=== PATIENT | male | born 1975 | race Caucasian/White ===

== ENCOUNTER 2016-10-09 | Inpatient (IN) | END 2017-10-08 23:59 | disposition other institution (70) | DRG 133 | DX: J96.11 Chronic respiratory failure with hypoxia (principal); G93.1 Anoxic brain damage, not elsewhere classified; R40.3 Persistent vegetative state; Z93.0 Tracheostomy status; R13.10 Dysphagia, unspecified; Z86.73 Personal history of transient ischemic attack (TIA), and cerebral infarction without residual deficits; Z93.1 Gastrostomy status; E11.22 Type 2 diabetes mellitus with diabetic chronic kidney disease; I12.9 Hypertensive chronic kidney disease with stage 1 through stage 4 chronic kidney disease, or unspecified chronic kidney disease; N18.9 Chronic kidney disease, unspecified; E03.9 Hypothyroidism, unspecified; N40.0 Benign prostatic hyperplasia without lower urinary tract symptoms; G40.909 Epilepsy, unspecified, not intractable, without status epilepticus; G47.00 Insomnia, unspecified ==

== ENCOUNTER 2016-12-09 07:11 | Day surgery (SDC) | payer MEDICARE, MEDICAID ==
[~2016-12-09 07:11] MED LIST: ACET-2154 GT; ALBU2.5V38 NEB; ASCO500C16 GT; BACL20TA GT; CHOL4PAC5 GT; HYDR5TAB2 GT; IPRATROPIUM NEB; LACT1CAP61 GT; LEVE1000 GT; LEVO75TA7 GT; MENT71OI TP; MERO1VIA IV; METR500T GT; MULT9LIQ6 GT; NAPH1POW3 GT; OMEP20TA20 GT; ONDA4SOL2 GT; PROSTAT GT; RXVAN XX; TERA1CAP4 GT; VANC250C4 GT; Vancomycin Hcl PO
[2016-12-09] MEDS ORDERED: IV NORMAL SALINE 1000 ML BAG IV ONE (07:53)
[2016-12-09] MEDS ORDERED: PROPOFOL 200 MG/20 ML BOTTLE IV ONE (07:53)
== END 2016-12-09 09:10 | disposition still patient (30) ==
LOC: DS 07:11
PROVIDERS: ATTEND Internal Medicine Gastroenterology
DX: R19.5 Other fecal abnormalities (principal); D64.9 Anemia, unspecified; K63.89 Other specified diseases of intestine; K22.70 Barrett's esophagus without dysplasia; K44.9 Diaphragmatic hernia without obstruction or gangrene; Z93.1 Gastrostomy status; E46 Unspecified protein-calorie malnutrition; E03.9 Hypothyroidism, unspecified; G40.909 Epilepsy, unspecified, not intractable, without status epilepticus
CPT/HCPCS: 43239; 45378; A4217; J3490; J7030

== ENCOUNTER 2017-03-01 09:43 | Day surgery (SDC) | payer MEDICARE, MEDICAID ==
[~2017-03-01 09:43] MED LIST changes: +IV NORMAL SALINE 1000 ML BAG IV ONE; +LIDOCAINE HCL 1% 20 ML VIAL MC ONE; +PROPOFOL 200 MG/20 ML BOTTLE IV ONE
== END 2017-03-01 11:00 | disposition still patient (30) ==
LOC: DS 09:43
PROVIDERS: ATTEND Internal Medicine Gastroenterology
DX: K94.23 Gastrostomy malfunction (principal); Q85.00 Neurofibromatosis, unspecified; G40.909 Epilepsy, unspecified, not intractable, without status epilepticus; N18.9 Chronic kidney disease, unspecified; D64.9 Anemia, unspecified; E11.9 Type 2 diabetes mellitus without complications; J96.10 Chronic respiratory failure, unspecified whether with hypoxia or hypercapnia; J18.9 Pneumonia, unspecified organism
CPT/HCPCS: 43235; A4217; J3490; J7030

== ENCOUNTER 2017-05-24 09:31 | Day surgery (SDC) | payer MEDICARE, MEDICAID ==
[~2017-05-24 09:31] MED LIST changes: -IV NORMAL SALINE 1000 ML BAG IV ONE; -LIDOCAINE HCL 1% 20 ML VIAL MC ONE; -PROPOFOL 200 MG/20 ML BOTTLE IV ONE
[2017-05-24] MEDS ORDERED: PROPOFOL 200 MG/20 ML BOTTLE IV ONE (11:08)
[2017-05-24] MEDS ORDERED: IV NORMAL SALINE 1000 ML BAG IV ONE (11:08)
[2017-05-24] MEDS ORDERED: LIDOCAINE HCL 1% 20 ML VIAL MC ONE (11:08)
[2017-05-24] MEDS ORDERED: IV NORMAL SALINE 1000 ML BAG ONE (11:10)
[2017-05-24] MEDS ORDERED: LIDOCAINE HCL 1% 20 ML VIAL ONE (11:10)
[2017-05-24] MEDS ORDERED: PROPOFOL 200 MG/20 ML BOTTLE ONE (11:10)
== END 2017-05-24 12:05 | disposition still patient (30) ==
LOC: DS 09:31
PROVIDERS: ATTEND Internal Medicine Gastroenterology
DX: K22.10 Ulcer of esophagus without bleeding (principal); K44.9 Diaphragmatic hernia without obstruction or gangrene; Z79.899 Other long term (current) drug therapy; G40.909 Epilepsy, unspecified, not intractable, without status epilepticus; D64.9 Anemia, unspecified; E11.22 Type 2 diabetes mellitus with diabetic chronic kidney disease; N18.9 Chronic kidney disease, unspecified; E03.9 Hypothyroidism, unspecified; G45.9 Transient cerebral ischemic attack, unspecified
CPT/HCPCS: 43239; A4217; J3490 ×2; J7030

== ENCOUNTER 2017-10-09 | Inpatient (IN) | END 2018-10-08 23:59 | disposition still patient (30) | DRG 189 | DX: J96.11 Chronic respiratory failure with hypoxia (principal); E43 Unspecified severe protein-calorie malnutrition; J69.0 Pneumonitis due to inhalation of food and vomit; G93.1 Anoxic brain damage, not elsewhere classified; R40.3 Persistent vegetative state; D62 Acute posthemorrhagic anemia; D68.59 Other primary thrombophilia; J81.1 Chronic pulmonary edema; R64 Cachexia; Z93.0 Tracheostomy status; R13.10 Dysphagia, unspecified; Z86.73 Personal history of transient ischemic attack (TIA), and cerebral infarction without residual deficits; Z93.1 Gastrostomy status; E11.22 Type 2 diabetes mellitus with diabetic chronic kidney disease; I12.9 Hypertensive chronic kidney disease with stage 1 through stage 4 chronic kidney disease, or unspecified chronic kidney disease; N18.9 Chronic kidney disease, unspecified; E03.9 Hypothyroidism, unspecified; G40.909 Epilepsy, unspecified, not intractable, without status epilepticus; G47.00 Insomnia, unspecified; D36.15 Benign neoplasm of peripheral nerves and autonomic nervous system of abdomen; F09 Unspecified mental disorder due to known physiological condition; F41.9 Anxiety disorder, unspecified; F79 Unspecified intellectual disabilities; I70.0 Atherosclerosis of aorta; K40.20 Bilateral inguinal hernia, without obstruction or gangrene, not specified as recurrent; K80.20 Calculus of gallbladder without cholecystitis without obstruction; Q85.01 Neurofibromatosis, type 1; N40.0 Benign prostatic hyperplasia without lower urinary tract symptoms; R62.7 Adult failure to thrive; Z68.23 Body mass index [BMI] 23.0-23.9, adult; Z86.14 Personal history of Methicillin resistant Staphylococcus aureus infection; Z87.820 Personal history of traumatic brain injury ==

== ENCOUNTER 2018-06-01 11:38 | Inpatient (IN) | payer MEDICARE, MEDICAID ==
[~2018-06-01] VITALS: Ht 167.6 cm; Wt 63.5 kg
[2018-06-01] MEDS ORDERED: SUCR1TAB31 GT (12:08)
[2018-06-01] MEDS ORDERED: LOPE2CAP GT (12:08)
[2018-06-01] MEDS ORDERED: POTA10TA15 GT (12:08)
[2018-06-01] MEDS ORDERED: HYDR1SOL (12:08)
[2018-06-01] MEDS ORDERED: IV NORMAL SALINE 250 ML IV ONE (12:26)
[2018-06-01] MEDS ORDERED: IOHEXOL 350 100 ML INFUS..BTL ONE (12:26)
[2018-06-01] MEDS ORDERED: SWABABLE VALVE TRANSFER SET EA MC ONE (12:26)
--- NOTE | 2018-06-01 12:36 | NUR ---
PT IS IN ROOM #1A. DR ANDERSON EVALUATED THE PT.
[2018-06-01] MEDS ORDERED: IV NORMAL SALINE 1000 ML BAG IV ONE (12:45)
[2018-06-01 14:29] LABS: *BILIRUBIN,URIN NEGATIVE (NEGATIVE); *BLOOD, URINE NEGATIVE (NEGATIVE); *CLARITY,URINE CLEAR (CLEAR); *COLOR,URINE YELLOW (YELLOW); *KETONES,URINE NEGATIVE (NEGATIVE); *PROTEIN,URINE NEGATIVE (NEGATIVE); *UROBILINOGEN,URINE 0.2 E.U./dl (NORMAL); LEUKOCYTE ESTERASE ,URINE NEGATIVE (NEGATIVE); NITRITE, URINE NEGATIVE (NEGATIVE); UGLUCOSE NEGATIVE (NEGATIVE)
[2018-06-01] MEDS ORDERED: LEVOFLOXACIN 750MG/D5W 150 ML IV ONE ×2 (14:30→14:40)
[2018-06-01] MEDS ORDERED: PIPERACILLIN SODIUM/TAZOBACTAM 3.375 G in IV DEXTROSE 5% 50 ML IV ONE (14:30)
[2018-06-01 14:35] LABS: RBC,URINE 0-3 /HPF (0-3); WBC,URINE 0-3 /HPF (0-3)
[2018-06-01 14:36] LABS: BACTERIA,URINE NONE SEEN /HPF (NONE SEEN); SQUAMOUS EPITHELIAL CELL,UR FEW /HPF (NONE SEEN)
[2018-06-01 14:37] LABS: MUCUS,URINE FEW /LPF (0-FEW)
[2018-06-01] MEDS ORDERED: PIPERACILLIN/TAZOBACTAM/D5W 50 ML IV ONE (14:39)
[2018-06-01] MEDS ORDERED: IPRATROPIUM BROMIDE 0.5 MG/2.5 ML NEBU NEB PRN (15:30)
[2018-06-01] MEDS ORDERED: ACETAMINOPHEN 325 MG TABLET GT PRN (15:30)
[2018-06-01] MEDS ORDERED: ALBUTEROL SULFATE 2.5 MG/3 ML NEBU NEB PRN (15:30)
[2018-06-01] MEDS ORDERED: Z GUARD REMEDY PASTE 57 GM TUBE TOP PRN ×2 (15:30→20:00)
[2018-06-01] MEDS ORDERED: ONDANSETRON 4 MG/2 ML VIAL IV PRN (15:30)
--- NOTE | 2018-06-01 15:55 | NUR ---
REPORT WAS GIVEN TO RN LASHON. PT WAS TRANSFERED TO ROOM #217.
--- NOTE | 2018-06-01 15:58 | NUR ---
SBAR report received from Dara JEAN BAPTISTE, 43 yr old male who was brought down from subacute [facility] facility for elevated wbc and abd bruising. with the following medical history: tracheostomy, PEG, previous Stroke, resp failure, muscle wasting, atrophy non verbal, mentally disabled. 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 right arm ok. opens eyes but not to commands. lactic acid 3.2. was given 2 l NS iv. IV site to right forearm #20. Addendum: 06/01/18 at 1558 by ZEINA GOMEZ RN Amended: Links added.
[2018-06-01 16:30] VITALS: BP 112/71
[2018-06-01] MEDS: IV NS 1000 ML 1,000 ML IV PRN (16:34)
--- NOTE | 2018-06-01 16:38 | NUR ---
Clinical pharmacy note-Vancomycin dosing per pharmacy Subjective: To start vancomycin dosing on this quadriplegic patient for pneumonia(from 4th) Objective: BUN 31 Scr 0.6 WBC 17 temp 97.8 Ht 167.64cm Wt 63.5kg Assessment /Plan: Previously he was on Vancomycin 1gram iv every 12hrs and it yielded trough around 14.8(scr 0.6). Will start Vancomycin as 1 gram IV every 11hrs for expected trough around 16.9 and order trough by 4th dose(not ordered yet ) for pneumonia. Will monitor daily.
[2018-06-01] MEDS ORDERED: Medication Not On Formulary EA (Lactobacillus Acidophilus (Acidophilus) 1 EACH) GT SCH (17:00)
[2018-06-01] MEDS ORDERED: HYDROGEN PEROXIDE 3% 118 ML BOTTLE TP PRN (17:00)
[2018-06-01] MEDS: BACLOFEN 20 MG TABLET GT SCH ×2 (18:35→20:08)
[2018-06-01] MEDS: VITAL AF 1.2 1,000 ML LIQUID GT PRN (18:36)
[2018-06-01] MEDS: VANCOMYCIN IV 1 G in PREMIXED 0 EACH IV SCH (18:36)
[2018-06-01] MEDS: PIPERACILLIN/TAZOBACTAM/D5W 50 ML IV SCH (19:14)
--- NOTE | 2018-06-01 19:30 | NUR ---
Report received; patient awake, no appropriate verbal responses to questions. Grunting and mildly restless. Moving/waving R arm, attempts to hit RN. Advised and reoriented PRN. On contact isolation for HX: ESBL bronchial washings (Oct 31, 2017). Trache Shiley #[address]; O2 2 L by trache collar. Assessment completed; see flow sheet for details. Addendum: 06/02/18 at 333 by LIZZETH ZEPEDA RN Amended: Links added. Addendum: 06/02/18 at 033 by LIZZETH ZEPEDA RN Amended: Links added.
--- NOTE | 2018-06-01 19:32 | NUR ---
REPORT GIVEN TO Buffy RN Addendum: 06/01/18 at 1933 by ZEINA GOMEZ RN Amended: Links added.
[2018-06-01 19:35] VITALS: BP 125/69
--- NOTE | 2018-06-01 19:40 | NUR ---
Report received; patient awake, no appropriate verbal responses to questions. Grunting and mildly restless. Moving/waving R arm, attempts to hit RN. Advised and reoriented PRN. On contact isolation for HX: ESBL bronchial washings (Oct 31, 2017). Trache shiley #[address]; O2 2 L by trache collar. Assessment completed; see flow sheet for details. Addendum: 06/02/18 at 0345 by LIZZETH ZEPEDA RN Amended: Links added.
[2018-06-01] MEDS: LEVETIRACETAM 500 MG/5 ML LIQUID UDC GT SCH (20:08)
[2018-06-01] MEDS: LACTOBACILLUS RHAMNOSUS GG 1 EACH CAPSULE PEG SCH (20:08)
[2018-06-01] MEDS: HYDROCORTISONE 10 MG TABLET GT SCH (20:08)
[2018-06-01] MEDS: MULTIVIT, IRON, MIN NO. 8, FA TABLET GT SCH (20:08)
[2018-06-01] MEDS: Z GUARD REMEDY PASTE 57 GM TUBE TOP SCH (20:09)
--- NOTE | 2018-06-01 20:10 | NUR ---
GT feedings held. Residuals above 100ml. Medications given. HOB elevated above 30 degrees at all times.
[2018-06-01] MEDS: HYDROGEN PEROXIDE 3% 118 ML BOTTLE TP SCH (20:21)
[2018-06-01] MEDS: IPRATROPIUM BROMIDE 0.5 MG/2.5 ML NEBU NEB SCH ×2 (20:30→23:25)
[2018-06-01] MEDS: ALBUTEROL SULFATE 2.5 MG/3 ML NEBU NEB SCH ×3 (20:30→23:25)
[2018-06-01] MEDS ORDERED: Medication Not On Formulary EA (Multivit &Minerals/Ferrous Fum (Multivitamin Liquid) 5 M GT SCH (21:00)
[2018-06-01] MEDS ORDERED: HYDROCORTISONE 25 MG GT SCH (21:00)
[2018-06-01] MEDS ORDERED: ACIDOPHILUS/BULGARICUS CHEW TAB GT SCH (21:00)
[2018-06-01] MEDS ORDERED: Medication Not On Formulary EA (Levetiracetam (Keppra) 1,000 MG) GT SCH (21:00)
[2018-06-01] MEDS: SUCRALFATE 1 G TABLET GT SCH (21:29)
[2018-06-01] MEDS: PANTOPRAZOLE ORAL SUSPENSION 40 MG SUSPDR.PKT GT SCH (21:29)
--- NOTE | 2018-06-01 22:00 | NUR ---
Skin care provided. Patient with increasing restlessness during care. GT feedings restarted at 30 ml/H.
[2018-06-01 23:21] VITALS: BP 116/74
[2018-06-02] VITALS (13 sets, daily range): BP systolic 104–137; BP diastolic 54–74
[2018-06-02] MEDS: PIPERACILLIN/TAZOBACTAM/D5W 50 ML IV SCH ×4 (00:23→17:27)
--- NOTE | 2018-06-02 00:30 | NUR ---
During rounds found that patient had pulled out trache. RICHARD noted. RT called. Berna applied to R arm for safety. L arm and both legs contracted. Addendum: 06/02/18 at 0406 by LIZZETH ZEPEDA RN Amended: Links added.
--- NOTE | 2018-06-02 00:40 | NUR ---
Called to room by RN KHUSHBOO. Pt had pulled trach tube out. New Rah 4 DCFS inserted and is in place patent and secure. No resp. distress noted. RN AnishaT notified. B/U Rah Yu and BVM are both at bedside.
--- NOTE | 2018-06-02 01:00 | NUR ---
Am care done. Condom catheter applied; attached to drainage bag. Skin care provided.
[2018-06-02] MEDS: ALBUTEROL SULFATE 2.5 MG/3 ML NEBU NEB SCH ×6 (02:50→22:41)
[2018-06-02] MEDS: IPRATROPIUM BROMIDE 0.5 MG/2.5 ML NEBU NEB SCH ×6 (02:50→22:41)
[2018-06-02] MEDS: VANCOMYCIN IV 1 G in PREMIXED 0 EACH IV SCH ×2 (04:31→16:27)
[2018-06-02] MEDS: LEVOTHYROXINE SODIUM 75 MCG TABLET GT SCH (05:52)
[2018-06-02] MEDS: PANTOPRAZOLE ORAL SUSPENSION 40 MG SUSPDR.PKT GT SCH ×2 (05:52→21:41)
[2018-06-02] MEDS: SUCRALFATE 1 G TABLET GT SCH ×3 (05:52→21:41)
--- NOTE | 2018-06-02 06:00 | NUR ---
Remains agitated and attempts to hit RN during care. VS stable. Soft wrist restraint applied to mitten for safety.
[2018-06-02 06:22] LABS: BILIRUBIN,TOTAL 0.7 mg/dL (0.2-1.0); CREATININE 0.7 mg/dL (0.6-1.3); MAGNESIUM 1.8 mg/dL (1.8-2.4); PHOSPHOROUS 2.5 mg/dL (2.5-4.9); POTASSIUM 3.8 mmol/L (3.5-5.1); TOTAL PROTEIN, SERUM 5.7 g/dL (6.4-8.2)
[2018-06-02] MEDS: IV NS 1000 ML 1,000 ML IV PRN (06:24)
[2018-06-02 06:26] LABS: THYROID STIMULATING HORMONE 0.672 mIU/mL (0.358-3.740)
[2018-06-02 06:27] LABS: BASOPHILS % (AUTO) 0.5 % (0.0-2.0); EOSINOPHILS # (AUTO) 0.1 K/uL (0.0-0.7); EOSINOPHILS % (AUTO) 1.3 % (0.0-7.0); LYMPHOCYTES # (AUTO) 0.2 K/uL (20.0-40.0); LYMPHOCYTES % (AUTO) 2.5 % (20.5-51.5); MEAN CORPUSCULAR HEMOGLOBIN 29.5 uug (23.8-33.4); MEAN CORPUSCULAR HGB CONC 34 g/dL (32.5-36.3); MEAN CORPUSCULAR VOLUME 85.7 fL (73.0-96.2); MONOCYTES # (AUTO) 0.9 K/uL (2.0-10.0); MONOCYTES % (AUTO) 9.3 % (0.0-11.0); NEUTROPHILS # (AUTO) 8.2 K/uL (1.8-8.9); NEUTROPHILS % (AUTO) 86.4 % (38.5-71.5); PLATELET COUNT (AUTO) 179 K/uL (152-348); RED BLOOD CELL COUNT(AUTO) 2.78 MIL/uL (4.06-5.63)
[2018-06-02 06:30] LABS: HEMATOCRIT 24.1 % (36.7-47.1); HEMOGLOBIN 8.2 g/dL (12.5-16.3); WHITE BLOOD COUNT (AUTO) 9.5 K/uL (3.6-10.2)
[2018-06-02] MEDS ORDERED: PANTOPRAZOLE ORAL SUSPENSION 40 MG SUSPDR.PKT GT SCH ×2 (06:30)
--- NOTE | 2018-06-02 06:30 | NUR ---
GT feedings restarted at 0600; rate= 30 ml/H. (Feedings order: 30 ml/H increased Q6H as tolerated goal 70 ml/H x 18H)
[2018-06-02] MEDS: VITAL AF 1.2 1,000 ML LIQUID GT PRN (06:41)
[2018-06-02 07:30] LABS: ABG BASE EXCESS -1.1 mmol/L; ABG HCO3 21.9 mmol/L; ABG PCO2 29.4 mmHg (35.0-45.0); ABG PH 7.489 (7.350-7.450); ABG PO2 74.9 mmHg (75.0-100.0); ABG SITE RIGHT BRACHIAL; COHb 2.2 % (0.5-1.5); MetHb 0.4 % (0.0-1.5); O2Hb 93.1 % (94.0-97.0); VENT MODE Trach Collar 30%
[2018-06-02 07:52] LABS: BAND % (MANUAL) 5 % (0-10); BASOPHILS % (MANUAL) 1 % (0-2); EOSINOPHILS % (MANUAL) 1 % (0-8); LYMPHOCYTES % (MANUAL) 3 % (20-40); METAMYELOCYTES % 1 % (0-1); MONOCYTES % (MANUAL) 8 % (2-10); MYELOCYTES % 2 % (0-0); NEUTROPHILS % (MANUAL) 79 % (42-75)
--- NOTE | 2018-06-02 08:00 | NUR ---
AWAKE ALERT AND CONFUSED X3, MITTENS MAINTAINED RIGHT ARM FOR PULLING OUT TUBE/TRACHEOSTOMY
[2018-06-02] MEDS: LEVETIRACETAM 500 MG/5 ML LIQUID UDC GT SCH ×2 (08:16→20:14)
[2018-06-02] MEDS: HYDROCORTISONE 10 MG TABLET GT SCH ×2 (08:16→20:14)
[2018-06-02] MEDS: POTASSIUM CHLORIDE 20 MEQ POWDER PACKET GT SCH (08:17)
[2018-06-02] MEDS: BACLOFEN 20 MG TABLET GT SCH ×4 (08:17→20:14)
[2018-06-02] MEDS: TERAZOSIN 1 MG CAPSULE GT SCH (08:17)
[2018-06-02] MEDS: LACTOBACILLUS RHAMNOSUS GG 1 EACH CAPSULE PEG SCH ×2 (08:17→20:15)
[2018-06-02] MEDS: Z GUARD REMEDY PASTE 57 GM TUBE TOP SCH ×2 (08:18→20:16)
[2018-06-02] MEDS: HYDROGEN PEROXIDE 3% 118 ML BOTTLE TP SCH ×2 (08:19→20:17)
--- NOTE | 2018-06-02 09:06 | NUR ---
Clinical pharmacy note-Vancomycin dosing per pharmacy Subjective: To continue vancomycin dosing on this quadriplegic patient for pneumonia (from subacute) Objective: BUN 20 Scr 0.7 WBC 9.5 temp 98.5 Ht 167.64cm Wt 63.5kg Assessment /Plan: Will continue same dose of Vancomycin 1 gram IV every 11hrs for now. 3rd dose is due today at 1530. Plan to draw vanco trough by 4th dose(ordered for 06/03 at 0200- RN has been informed to hold 0230 dose if vanco trough level is above 20 mcg/ml ). Pharmach shall review the level in am & adjust the dose if needed. Will monitor daily.
[2018-06-02] MEDS ORDERED: IV NORMAL SALINE 500 ML IV ONE (10:30)
[2018-06-02 11:09] LABS: HEMATOCRIT 21.6 % (36.7-47.1)
[2018-06-02 11:14] LABS: HEMOGLOBIN 7.2 g/dL (12.5-16.3)
--- NOTE | 2018-06-02 14:11 | NUR ---
BLOOD TRANSFUSION STARTED CLOSELY MONITORED
--- NOTE | 2018-06-02 14:26 | NUR ---
TRIED TO REACH BROTHER FOR BLOOD TRANSFUSION CONSENT BUT TO NO AVAIL. HOSPITALIST Rachel ZAMORA NOTIFIED
--- NOTE | 2018-06-02 15:17 | NUR ---
NO REACTION FROM BLOOD TRANSFUSION NOTED
--- NOTE | 2018-06-02 16:44 | NUR ---
BLOOD TRANSFUSION COMPLETED WITH NO REACTION
[2018-06-02 18:15] LABS: HEMATOCRIT 23.5 % (36.7-47.1); HEMOGLOBIN 7.8 g/dL (12.5-16.3)
--- NOTE | 2018-06-02 19:15 | NUR ---
ROUNDS MADE PATIENT IN BED AWAKE .NON VERBAL ONLY MOANS AND GROANS . UNABLE TO FOLLOW COMMANDS . TOLERATING COOL AEROSOL MASK WITH FIO2 OF 30%. HOB UP . NO RESPIRATORY DISTRESS NOTED . BREATHING EVEN AND UNLABORED. NO S/S/ OF PAIN . TF IN PROGRESS VIA THE PEG VITAL FEEDING AT 30 ML/HOUR ASPIRATION PRECAUTION OBSERVED. CONDOM CATHETER IN PLACED WITH YELLOWISH URINE CONTINUE TO MONITOR I AND OS .FOR PATENT SAFETY WRIST RESTRAINTS IN PLACE PATENT KEEP REMOVING TRACH . CONTINUE TO MONITOR VITALS AND LEVELS OF COMFORT.
[2018-06-02] MEDS: MULTIVIT, IRON, MIN NO. 8, FA TABLET GT SCH (20:15)
--- NOTE | 2018-06-02 20:36 | NUR ---
ZULLY CONTRERAS SIGNED 2ND PHYSICIAN FOR BLOOD TRANSFUSION CONSENT . PER DOCTOR BEN HE NEEDS ANOTHER 1 UNIT FOR HGB 7.8 HCT 23.5, WILL ORDER 1 UNIT OF BLOOD .
--- NOTE | 2018-06-02 23:00 | NUR ---
PM CARE DONE . INCONTINENT OF URIEN CHANGE SOLED LINENS AND GOWN SKIN CARE DONE , TURNED AND REPOSITION PATIENT . HOB UP AND ELEVATED UPPER AND LOWER EXTREMITIES WITH PILLOW .
[2018-06-03] VITALS (7 sets, daily range): BP systolic 107–141; BP diastolic 65–80
--- NOTE | 2018-06-03 00:01 | NUR ---
PRBC IN PROGRESS NO BLOOD TRANSFUSION RXN NOTED CONTINUE TO MONITOR FOR V/S .
[2018-06-03] MEDS: PIPERACILLIN/TAZOBACTAM/D5W 50 ML IV SCH ×5 (00:09→23:37)
[2018-06-03] MEDS: IV NS 1000 ML 1,000 ML IV PRN ×2 (00:10→17:30)
--- NOTE | 2018-06-03 01:35 | NUR ---
TOLERATED BLOOD TRANSFUSION NO RXN NOTED .
[2018-06-03] MEDS: ALBUTEROL SULFATE 2.5 MG/3 ML NEBU NEB SCH ×6 (03:50→22:35)
[2018-06-03] MEDS: IPRATROPIUM BROMIDE 0.5 MG/2.5 ML NEBU NEB SCH ×6 (03:50→22:34)
[2018-06-03] MEDS: VANCOMYCIN IV 1 G in PREMIXED 0 EACH IV SCH ×2 (04:13→13:36)
[2018-06-03] MEDS: PANTOPRAZOLE ORAL SUSPENSION 40 MG SUSPDR.PKT GT SCH ×2 (05:08→21:46)
[2018-06-03] MEDS: SUCRALFATE 1 G TABLET GT SCH ×3 (05:08→21:45)
[2018-06-03 05:54] LABS: BASOPHILS % (AUTO) 0.5 % (0.0-2.0); EOSINOPHILS # (AUTO) 0.1 K/uL (0.0-0.7); EOSINOPHILS % (AUTO) 1.1 % (0.0-7.0); HEMATOCRIT 26.4 % (36.7-47.1); HEMOGLOBIN 9.1 g/dL (12.5-16.3); LYMPHOCYTES # (AUTO) 0.3 K/uL (20.0-40.0); LYMPHOCYTES % (AUTO) 4.1 % (20.5-51.5); MEAN CORPUSCULAR HEMOGLOBIN 29.6 uug (23.8-33.4); MEAN CORPUSCULAR HGB CONC 35 g/dL (32.5-36.3); MEAN CORPUSCULAR VOLUME 85.9 fL (73.0-96.2); MONOCYTES # (AUTO) 0.8 K/uL (2.0-10.0); MONOCYTES % (AUTO) 10.2 % (0.0-11.0); NEUTROPHILS # (AUTO) 6.3 K/uL (1.8-8.9); NEUTROPHILS % (AUTO) 84.1 % (38.5-71.5); PLATELET COUNT (AUTO) 160 K/uL (152-348); RED BLOOD CELL COUNT(AUTO) 3.07 MIL/uL (4.06-5.63); WHITE BLOOD COUNT (AUTO) 7.5 K/uL (3.6-10.2)
[2018-06-03 06:06] LABS: ALANINE AMINOTRANSFERASE 21 U/L (16-63); ALKALINE PHOSPHATASE 55 U/L (50-136); ASPARTATE AMINOTRANSFERASE 14 U/L (15-37); BILIRUBIN,TOTAL 1.3 mg/dL (0.2-1.0); CARBON DIOXIDE 24 mmol/L (21-32); CHLORIDE 108 mmol/L (98-107); CREATININE 0.6 mg/dL (0.6-1.3); GLUCOSE 88 mg/dL (74-106); MAGNESIUM 1.9 mg/dL (1.8-2.4); PHOSPHOROUS 2.8 mg/dL (2.5-4.9); POTASSIUM 3.3 mmol/L (3.5-5.1); TOTAL PROTEIN, SERUM 5.5 g/dL (6.4-8.2); UREA NITROGEN, BLOOD 13 mg/dL (7-18)
[2018-06-03] MEDS: LEVOTHYROXINE SODIUM 75 MCG TABLET GT SCH (06:17)
--- NOTE | 2018-06-03 08:00 | NUR ---
AWAKE ALERT BUT REMAINS CONFUSED X3 NO SS OF PAIN OR DISTRESS WITH 30% O2 VIA TRACH SATURATING 100%. SEEN BY DR DIEHL WITH ORDER.
[2018-06-03] MEDS: HYDROGEN PEROXIDE 3% 118 ML BOTTLE TP SCH ×2 (08:28→20:52)
[2018-06-03] MEDS: LEVETIRACETAM 500 MG/5 ML LIQUID UDC GT SCH ×2 (08:28→20:13)
[2018-06-03] MEDS: LACTOBACILLUS RHAMNOSUS GG 1 EACH CAPSULE PEG SCH ×2 (08:28→20:15)
[2018-06-03] MEDS: BACLOFEN 20 MG TABLET GT SCH ×4 (08:28→20:13)
[2018-06-03] MEDS: POTASSIUM CHLORIDE 20 MEQ POWDER PACKET GT SCH (08:28)
[2018-06-03] MEDS: Z GUARD REMEDY PASTE 57 GM TUBE TOP SCH ×2 (08:29→20:15)
[2018-06-03] MEDS: HYDROCORTISONE 10 MG TABLET GT SCH ×2 (08:30→20:12)
[2018-06-03] MEDS: TERAZOSIN 1 MG CAPSULE GT SCH (08:30)
--- NOTE | 2018-06-03 08:49 | NUR ---
Clinical pharmacy note-Vancomycin dosing per pharmacy Subjective: To continue vancomycin dosing on this quadriplegic patient for pneumonia (from subacute) Objective: BUN 13 Scr 0.6 WBC 7.5 temp 97.5 Ht 167.64cm Wt 63.5kg Trough: 16.6 today at 0200 Assessment /Plan: As trough within range, will continue same dose of Vancomycin 1 gram IV every 11hrs for now. If patient stays on prolonged course or condition changes, may recheck level or change regimen. Will follow
[2018-06-03] MEDS: VITAL AF 1.2 1,000 ML LIQUID GT PRN (08:55)
--- NOTE | 2018-06-03 10:30 | NUR ---
NOTED WITH LARGE SOFT BOWEL MOVEMENT SPECIMEN SENT FOR STOOL OB AND C-DIFF. TOLERATING FEEDING NO RESIDUAL NOTED. NO REACTION FROM IV ANTIBIOTIC
[2018-06-03] MEDS: POTASSIUM CHLORIDE 50 ML IV SCH ×2 (10:32→11:57)
[2018-06-03 11:04] LABS: IRON, SERUM 46 ug/dL (50-175)
[2018-06-03 11:48] LABS: HEMATOCRIT 26.5 % (36.7-47.1); HEMOGLOBIN 9.1 g/dL (12.5-16.3)
[2018-06-03 11:51] LABS: *OCCULT BLOOD STOOL POSITIVE (NEGATIVE)
--- NOTE | 2018-06-03 13:07 | NUR ---
SEEN BY HOSPITALIST Rachel ZAMORA CONTINUE CURRENT TX PLAN,
--- NOTE | 2018-06-03 13:27 | NUR ---
SEEN BY INSTRUCTIONAL SERVICES SPECIALIST FOR DR MOREL SEE NOTES
--- NOTE | 2018-06-03 17:43 | NUR ---
CONTINUE WITH LASHON OBSERVATION, IVF AND IV ANTIBIOTICS. AFEBRILE
--- NOTE | 2018-06-03 20:00 | NUR ---
Pt awake, restless and continues to attempt to DC med equipments. Soft wrist restraints bilateral and mitten right hand maintained, circ checks adequate. Maintained on contact isolation. Resp easy and regular. Trach midline, intact with cool mist O2 in use. Tube feedings well tolerated. Aspiration precautions observed. IVF infusing well. Turned/positioned q 2hr and PRN. Nursing comfort measures observed at all times.
[2018-06-03] MEDS: MULTIVIT, IRON, MIN NO. 8, FA TABLET GT SCH (20:13)
--- NOTE | 2018-06-03 21:40 | NUR ---
Seen and evaluated by Tyrone Gutierrez from ID, no new orders.
[2018-06-04] VITALS: BP 128/71
[2018-06-04] MEDS: VANCOMYCIN IV 1 G in PREMIXED 0 EACH IV SCH (00:24)
[2018-06-04] MEDS: ALBUTEROL SULFATE 2.5 MG/3 ML NEBU NEB SCH ×4 (02:30→14:50)
[2018-06-04] MEDS: IPRATROPIUM BROMIDE 0.5 MG/2.5 ML NEBU NEB SCH ×4 (02:30→14:50)
[2018-06-04 04:00] VITALS: BP 126/71
[2018-06-04] MEDS: PIPERACILLIN/TAZOBACTAM/D5W 50 ML IV SCH ×2 (05:32→11:52)
--- NOTE | 2018-06-04 06:00 | NUR ---
Required frequent suctioning to copious thick secretions, at times frothy. Inner cannula Shiley #4 changed twice with site cleansed q 2hr with trach dressing change. HOB up elevated at all times. Tube feeding at 40 ml/hr most of the night and residuals small; thus rate increased to 50 ml/hr at 0400 but turned off at 0600. Gen. condition unchanged.
[2018-06-04] MEDS: PANTOPRAZOLE ORAL SUSPENSION 40 MG SUSPDR.PKT GT SCH (06:08)
[2018-06-04] MEDS: SUCRALFATE 1 G TABLET GT SCH ×2 (06:08→12:50)
[2018-06-04] MEDS: LEVOTHYROXINE SODIUM 75 MCG TABLET GT SCH (06:08)
[2018-06-04 06:37] LABS: BASOPHILS % (AUTO) 0.6 % (0.0-2.0); EOSINOPHILS # (AUTO) 0.1 K/uL (0.0-0.7); EOSINOPHILS % (AUTO) 1.8 % (0.0-7.0); HEMATOCRIT 26.4 % (36.7-47.1); HEMOGLOBIN 9.2 g/dL (12.5-16.3); LYMPHOCYTES # (AUTO) 0.7 K/uL (20.0-40.0); LYMPHOCYTES % (AUTO) 9.2 % (20.5-51.5); MEAN CORPUSCULAR HEMOGLOBIN 29.9 uug (23.8-33.4); MEAN CORPUSCULAR HGB CONC 35 g/dL (32.5-36.3); MEAN CORPUSCULAR VOLUME 86.3 fL (73.0-96.2); MONOCYTES % (AUTO) 13.8 % (0.0-11.0); NEUTROPHILS # (AUTO) 5.4 K/uL (1.8-8.9); NEUTROPHILS % (AUTO) 74.6 % (38.5-71.5); PLATELET COUNT (AUTO) 176 K/uL (152-348); RED BLOOD CELL COUNT(AUTO) 3.07 MIL/uL (4.06-5.63); WHITE BLOOD COUNT (AUTO) 7.2 K/uL (3.6-10.2)
[2018-06-04 06:43] LABS: CARBON DIOXIDE 25 mmol/L (21-32); CHLORIDE 109 mmol/L (98-107); CREATININE 0.6 mg/dL (0.6-1.3); GLUCOSE 104 mg/dL (74-106); MAGNESIUM 1.9 mg/dL (1.8-2.4); POTASSIUM 3.3 mmol/L (3.5-5.1); UREA NITROGEN, BLOOD 9 mg/dL (7-18)
--- NOTE | 2018-06-04 07:25 | NUR ---
report received from Ronit. 43 yr old male was admitted on 06/01/18 for SEPSIS, PNA. patient nonverbal, left arm conractured with a splint. lower extremeties flaccid. is receiving IV fluid NS at 75ml/hr. ekg sinus rhythm. dvt pumps and on first step select air mattress. trach Shiley #4 intact. had copious trach secretions last night. Addendum: 06/04/18 at 1051 by ZEINA GOMEZ RN Amended: Links added.
[2018-06-04 07:28] VITALS: BP 114/81
[2018-06-04] MEDS: HYDROCORTISONE 10 MG TABLET GT SCH (08:58)
[2018-06-04] MEDS: LACTOBACILLUS RHAMNOSUS GG 1 EACH CAPSULE PEG SCH (08:58)
[2018-06-04] MEDS: LEVETIRACETAM 500 MG/5 ML LIQUID UDC GT SCH (08:58)
[2018-06-04] MEDS: POTASSIUM CHLORIDE 20 MEQ POWDER PACKET GT SCH (08:58)
[2018-06-04] MEDS: BACLOFEN 20 MG TABLET GT SCH ×3 (08:58→16:52)
[2018-06-04] MEDS: TERAZOSIN 1 MG CAPSULE GT SCH (08:59)
[2018-06-04] MEDS: Z GUARD REMEDY PASTE 57 GM TUBE TOP SCH (09:01)
[2018-06-04] MEDS: HYDROGEN PEROXIDE 3% 118 ML BOTTLE TP SCH (09:02)
[2018-06-04] MEDS: IV NS 1000 ML 1,000 ML IV PRN (10:41)
[2018-06-04] MEDS ORDERED: POTASSIUM CHLORIDE 20 MEQ POWDER PACKET GT ONE (10:45)
--- NOTE | 2018-06-04 11:20 | NUR ---
kcl 40meq replaced for k 3.3 Addendum: 06/04/18 at 1120 by ZEINA GOMEZ RN Amended: Links added.
[2018-06-04 11:23] VITALS: BP 121/67
[2018-06-04 11:42] LABS: HEMATOCRIT 28.2 % (36.7-47.1); HEMOGLOBIN 9.6 g/dL (12.5-16.3)
[2018-06-04] MEDS ORDERED: PIPE3.379 IV (12:42)
[2018-06-04] MEDS: VITAL AF 1.2 1,000 ML LIQUID GT PRN (12:51)
--- NOTE | 2018-06-04 15:00 | NUR ---
patient ready to move back to but Travel [facility] here Dr Mendez wanted to see patient first. Addendum: 06/04/18 at 1701 by ZEINA GOMEZ RN Amended: Links added. Addendum: 06/04/18 at 1703 by ZEINA GOMEZ RN Amended: Links added. Addendum: 06/04/18 at 1705 by ZEINA GOMEZ RN Amended: Links added.
--- NOTE | 2018-06-04 15:06 | NUR ---
report given to Hyacinth Agosto SA. Addendum: 06/04/18 at 1506 by ZEINA GOMEZ RN Amended: Links added.
[2018-06-04 15:14] VITALS: BP 149/71
--- NOTE | 2018-06-04 16:00 | NUR ---
seen by dr hunter. preferred patient not to be discharged today pending lab tests. call to dr Painter. case picker and Bay Nurse Director for aware. dr painter okayed discharge to . fide GURROLA NP came to see patient. Addendum: 06/04/18 at 1703 by ZEINA GOMEZ RN Amended: Links added. Addendum: 06/04/18 at 1705 by ZEINA GOMEZ RN Amended: Links added.
--- NOTE | 2018-06-04 17:00 | NUR ---
Pt was seen by DR Hunter and being picked up by sub acute staff. Notified HARNESS BRUSHER jamila re: reporting result of labs fibrinogen to DR hunter
--- NOTE | 2018-06-04 17:15 | NUR ---
PT TRANSPORTED BACK TO 410 WITHOUT INCIDENT NOTED. BACK ON COOL AEROSOL AT 30% .
[2018-06-04 20:56] LABS: FERRITIN 47 ng/mL (26-388)
[2018-06-05 07:05] LABS: *IMMUNOGLOBULIN G, SERUM 629 mg/dL (700-1600); IMMUNOGLOBULIN A, SERUM 159 mg/dL (90-386); IMMUNOGLOBULIN M, SERUM 46 mg/dL (20-172)
[2018-06-05 12:08] LABS: A/G RATIO 1.1 (0.7-1.7); ALBUMIN 2.8 g/dL (2.9-4.4); ALPHA-1-GLOBULIN 0.4 g/dL (0.0-0.4); ALPHA-2-GLOBULIN 0.7 g/dL (0.4-1.0); BETA GLOBULIN 0.9 g/dL (0.7-1.3); GAMMA GLOBULIN 0.7 g/dL (0.4-1.8); GLOBULIN, TOTAL 2.6 g/dL (2.2-3.9); M-SPIKE Not Observed g/dL (Not Observed)
== END 2018-06-04 16:54 | DRG 871 ==
LOC: ER 11:41 → TELE-TD 15:32
PROVIDERS: ADMIT Internal Medicine; ATTEND Internal Medicine
PROC: 30233N1 Transfusion of Nonautologous Red Blood Cells into Peripheral Vein, Percutaneous Approach (ICD-10-PCS; principal; 2018-06-02)
DX: A41.9 Sepsis, unspecified organism (principal); J69.0 Pneumonitis due to inhalation of food and vomit; I50.31 Acute diastolic (congestive) heart failure; J96.11 Chronic respiratory failure with hypoxia; G93.1 Anoxic brain damage, not elsewhere classified; E44.0 Moderate protein-calorie malnutrition; K92.1 Melena; J98.11 Atelectasis; D68.59 Other primary thrombophilia; E87.2 Acidosis; I31.3 Pericardial effusion (noninflammatory); R65.20 Severe sepsis without septic shock; Z93.0 Tracheostomy status; Z93.1 Gastrostomy status; G40.909 Epilepsy, unspecified, not intractable, without status epilepticus; Q85.00 Neurofibromatosis, unspecified; Z68.22 Body mass index [BMI] 22.0-22.9, adult; E03.9 Hypothyroidism, unspecified; Z86.14 Personal history of Methicillin resistant Staphylococcus aureus infection; K21.9 Gastro-esophageal reflux disease without esophagitis; N40.0 Benign prostatic hyperplasia without lower urinary tract symptoms; K44.9 Diaphragmatic hernia without obstruction or gangrene; K40.20 Bilateral inguinal hernia, without obstruction or gangrene, not specified as recurrent; D53.9 Nutritional anemia, unspecified; E11.65 Type 2 diabetes mellitus with hyperglycemia; E87.6 Hypokalemia; Z79.899 Other long term (current) drug therapy; R13.10 Dysphagia, unspecified; F79 Unspecified intellectual disabilities; F41.9 Anxiety disorder, unspecified; S30.1XXA Contusion of abdominal wall, initial encounter; X58.XXXA Exposure to other specified factors, initial encounter; Y92.239 Unspecified place in hospital as the place of occurrence of the external cause; Z87.01 Personal history of pneumonia (recurrent); Z86.73 Personal history of transient ischemic attack (TIA), and cerebral infarction without residual deficits; R62.7 Adult failure to thrive; Z87.820 Personal history of traumatic brain injury; E83.51 Hypocalcemia; M62.59 Muscle wasting and atrophy, not elsewhere classified, multiple sites
CPT/HCPCS: 36415; 36600; 71045; 71275; 82784; 83550; 83605; 83735; 84100; 84155; 84165; 84443; 85018; 85025; 85730; 86334; 86850; 86900; 86901; 86920; 87040; 87070; 87086; 93005; 93307; 94640; 94664; A4217; A4663; C1758; J1956; J2543; J3370; J3480; J3590; J7030; J7040; J7050; P9016-BL; P9021; Q9967

== ENCOUNTER 2018-07-03 08:06 | Outpatient (CLI) | payer MEDICARE, MEDICAID ==
[~2018-07-03 08:06] MED LIST changes: -ASCO500C16 GT; -CHOL4PAC5 GT; +HYDR1SOL; +IOHEXOL 300MG/ML 100 ML INFUS..BTL ONE; +IV NORMAL SALINE 250 ML IV ONE; +LOPE2CAP GT; -MERO1VIA IV; -METR500T GT; -NAPH1POW3 GT; -ONDA4SOL2 GT; +PIPE3.379 IV; +POTA10TA15 GT; -PROSTAT GT; -RXVAN XX; +SUCR1TAB31 GT; +SWABABLE VALVE TRANSFER SET EA MC ONE; -VANC250C4 GT; -Vancomycin Hcl PO
== END 2018-07-03 23:59 | disposition home or self-care (01) ==
LOC: CT 08:06
PROVIDERS: ATTEND Internal Medicine Pulmonary Disease
DX: N50.1 Vascular disorders of male genital organs (principal); K80.20 Calculus of gallbladder without cholecystitis without obstruction; K86.89 Other specified diseases of pancreas; K76.0 Fatty (change of) liver, not elsewhere classified; J98.11 Atelectasis; K42.9 Umbilical hernia without obstruction or gangrene; K44.9 Diaphragmatic hernia without obstruction or gangrene; K40.20 Bilateral inguinal hernia, without obstruction or gangrene, not specified as recurrent; Z93.1 Gastrostomy status
CPT/HCPCS: 74177; J7050; Q9967

== ENCOUNTER 2018-10-09 | Inpatient (IN) | payer MEDICARE, MEDICAID ==
[~2018-10-09] VITALS: Ht 167.6 cm; Wt 68.5 kg
[~2018-10-09] MED LIST changes: -HYDR5TAB2 GT; +HYDR5TAB7 GT; -IOHEXOL 300MG/ML 100 ML INFUS..BTL ONE; -IV NORMAL SALINE 250 ML IV ONE; -SWABABLE VALVE TRANSFER SET EA MC ONE
[2018-10-10 08:05] VITALS: BP 158/78
[2018-10-10] MEDS ORDERED: LOPERAMIDE HCL 1 MG/5 ML UDC GT PRN (09:30)
[2018-10-10] MEDS ORDERED: Z GUARD REMEDY PASTE 57 GM TUBE TOP PRN (09:30)
[2018-10-10] MEDS ORDERED: ALBUTEROL SULFATE 2.5 MG/3 ML NEBU NEB PRN (09:30)
[2018-10-10] MEDS ORDERED: HYDROGEN PEROXIDE 3% 118 ML BOTTLE TP PRN (09:30)
[2018-10-10] MEDS ORDERED: IPRATROPIUM BROMIDE 0.5 MG/2.5 ML NEBU NEB PRN (09:30)
[2018-10-10] MEDS: POTASSIUM CHLORIDE 40 MEQ/30 ML LIQUID UDC GT SCH (09:35)
[2018-10-10] MEDS: HYDROCORTISONE 20MG TABLET GT SCH ×2 (09:35→20:58)
[2018-10-10] MEDS: TERAZOSIN 1 MG CAPSULE GT SCH (09:35)
[2018-10-10] MEDS: HYDROCORTISONE 10 MG GT SCH ×2 (09:35→20:58)
[2018-10-10] MEDS: ACIDOPHILUS/BULGARICUS CHEW TAB GT SCH ×2 (09:35→20:58)
[2018-10-10] MEDS: LEVETIRACETAM 500 MG/5 ML LIQUID UDC GT SCH ×2 (09:36→20:58)
[2018-10-10] MEDS: HYDROGEN PEROXIDE 3% 118 ML BOTTLE TP SCH ×2 (09:36→20:59)
[2018-10-10] MEDS: Z GUARD REMEDY PASTE 57 GM TUBE TOP SCH ×2 (09:36→20:59)
[2018-10-10] MEDS: BACLOFEN 20 MG TABLET GT SCH ×4 (09:36→20:58)
[2018-10-10] MEDS ORDERED: ACETAMINOPHEN 650 MG/20 ML UDC- SA PATIENTS-FEVER ONLY GT PRN (09:45)
[2018-10-10] MEDS: ALBUTEROL SULFATE 2.5 MG/3 ML NEBU NEB SCH ×2 (13:09→19:40)
[2018-10-10] MEDS: IPRATROPIUM BROMIDE 0.5 MG/2.5 ML NEBU NEB SCH ×2 (13:10→19:40)
[2018-10-10] MEDS: SUCRALFATE 1 G/10 ML LIQUID UDC GT SCH ×2 (14:57→22:49)
[2018-10-10 19:21] VITALS: BP 110/66
[2018-10-10] MEDS: MULTIVIT, IRON, MIN NO. 8, FA TABLET GT SCH (20:58)
[2018-10-10] MEDS: OMEPRAZOLE 20 MG CAPSULE.DR PO SCH (22:49)
--- NOTE | 2018-10-10 23:30 | NUR ---
Seen with new orders from Dr. Duncan Bell ( Coronary Care Unit Nurse) s/p ingrown removal , with new treatment with Triple antibiotic ointment and cover with band aid daily X 7 days.
[2018-10-11] MEDS: ALBUTEROL SULFATE 2.5 MG/3 ML NEBU NEB SCH ×4 (01:11→18:54)
[2018-10-11] MEDS: IPRATROPIUM BROMIDE 0.5 MG/2.5 ML NEBU NEB SCH ×4 (01:11→18:54)
[2018-10-11] MEDS: OMEPRAZOLE 20 MG CAPSULE.DR PO SCH ×2 (06:09→22:39)
[2018-10-11] MEDS: SUCRALFATE 1 G/10 ML LIQUID UDC GT SCH ×3 (06:09→22:39)
[2018-10-11] MEDS: LEVOTHYROXINE SODIUM 75 MCG TABLET GT SCH (06:09)
[2018-10-11] MEDS: ACIDOPHILUS/BULGARICUS CHEW TAB GT SCH ×2 (08:39→20:43)
[2018-10-11] MEDS: TERAZOSIN 1 MG CAPSULE GT SCH (08:39)
[2018-10-11] MEDS: LEVETIRACETAM 500 MG/5 ML LIQUID UDC GT SCH ×2 (08:40→20:44)
[2018-10-11] MEDS: BACLOFEN 20 MG TABLET GT SCH ×4 (08:40→20:44)
[2018-10-11] MEDS: Z GUARD REMEDY PASTE 57 GM TUBE TOP SCH ×2 (08:41→20:44)
[2018-10-11] MEDS: HYDROCORTISONE 20MG TABLET GT SCH ×2 (08:41→20:44)
[2018-10-11] MEDS: HYDROCORTISONE 10 MG GT SCH ×2 (08:41→20:44)
[2018-10-11] MEDS: POTASSIUM CHLORIDE 40 MEQ/30 ML LIQUID UDC GT SCH (08:42)
[2018-10-11] MEDS: NEOMY/BACITRAC/POLYMI OINT 28.35 GM TUBE TOP SCH (08:43)
[2018-10-11] MEDS: HYDROGEN PEROXIDE 3% 118 ML BOTTLE TP SCH ×2 (08:43→20:44)
[2018-10-11 11:44] VITALS: BP 120/73
[2018-10-11 20:41] VITALS: BP 128/80
[2018-10-11] MEDS: MULTIVIT, IRON, MIN NO. 8, FA TABLET GT SCH (20:44)
[2018-10-12] MEDS: ALBUTEROL SULFATE 2.5 MG/3 ML NEBU NEB SCH ×4 (01:32→19:16)
[2018-10-12] MEDS: IPRATROPIUM BROMIDE 0.5 MG/2.5 ML NEBU NEB SCH ×4 (01:32→19:16)
[2018-10-12] MEDS: VITAL AF 1.2 1,000 ML LIQUID GT PRN ×2 (01:50→22:24)
[2018-10-12] MEDS: OMEPRAZOLE 20 MG CAPSULE.DR PO SCH ×2 (06:00→22:24)
[2018-10-12] MEDS: LEVOTHYROXINE SODIUM 75 MCG TABLET GT SCH (06:00)
[2018-10-12] MEDS: SUCRALFATE 1 G/10 ML LIQUID UDC GT SCH ×3 (06:00→22:24)
[2018-10-12 07:50] VITALS: BP 141/80
[2018-10-12] MEDS: ACIDOPHILUS/BULGARICUS CHEW TAB GT SCH ×2 (08:19→20:31)
[2018-10-12] MEDS: TERAZOSIN 1 MG CAPSULE GT SCH (08:20)
[2018-10-12] MEDS: HYDROCORTISONE 10 MG GT SCH ×2 (08:20→20:31)
[2018-10-12] MEDS: Z GUARD REMEDY PASTE 57 GM TUBE TOP SCH ×2 (08:20→20:31)
[2018-10-12] MEDS: BACLOFEN 20 MG TABLET GT SCH ×4 (08:20→20:31)
[2018-10-12] MEDS: LEVETIRACETAM 500 MG/5 ML LIQUID UDC GT SCH ×2 (08:20→20:31)
[2018-10-12] MEDS: POTASSIUM CHLORIDE 40 MEQ/30 ML LIQUID UDC GT SCH (08:20)
[2018-10-12] MEDS: HYDROCORTISONE 20MG TABLET GT SCH ×2 (08:20→20:31)
[2018-10-12] MEDS: NEOMY/BACITRAC/POLYMI OINT 28.35 GM TUBE TOP SCH (08:21)
[2018-10-12] MEDS: HYDROGEN PEROXIDE 3% 118 ML BOTTLE TP SCH ×2 (08:21→20:31)
--- NOTE | 2018-10-12 16:16 | NUR ---
BRIAN mailed the annual admission paperwork for patient's new chart to patient's brother Jose. The paperwork included: Condition of Admission, Patient Rights Acknowledgement, An Important Message from Medicare about your Rights, Documentation of Preferred Intensity of Care, Voluntary Prior Express Consent Form, and the [facility] Agreement. SW also included instructions on how to review/complete and sign the papers, and enclosed an envelope for Jose to return the paperwork back to this SW. BRIAN mailed the paperwork to: Jose Talia Aquino [address] [place] [address]
[2018-10-12 20:13] VITALS: BP 122/71
[2018-10-12] MEDS: MULTIVIT, IRON, MIN NO. 8, FA TABLET GT SCH (20:31)
[2018-10-13] MEDS: ALBUTEROL SULFATE 2.5 MG/3 ML NEBU NEB SCH ×4 (01:27→19:11)
[2018-10-13] MEDS: IPRATROPIUM BROMIDE 0.5 MG/2.5 ML NEBU NEB SCH ×4 (01:27→19:11)
[2018-10-13] MEDS: LEVOTHYROXINE SODIUM 75 MCG TABLET GT SCH (05:55)
[2018-10-13] MEDS: OMEPRAZOLE 20 MG CAPSULE.DR PO SCH ×2 (05:55→22:06)
[2018-10-13] MEDS: SUCRALFATE 1 G/10 ML LIQUID UDC GT SCH ×3 (05:55→22:06)
[2018-10-13] MEDS: ACIDOPHILUS/BULGARICUS CHEW TAB GT SCH ×2 (08:40→21:00)
[2018-10-13] MEDS: HYDROCORTISONE 20MG TABLET GT SCH ×2 (08:41→21:00)
[2018-10-13] MEDS: TERAZOSIN 1 MG CAPSULE GT SCH (08:41)
[2018-10-13] MEDS: BACLOFEN 20 MG TABLET GT SCH ×4 (08:41→21:00)
[2018-10-13] MEDS: Z GUARD REMEDY PASTE 57 GM TUBE TOP SCH ×2 (08:41→21:00)
[2018-10-13] MEDS: POTASSIUM CHLORIDE 40 MEQ/30 ML LIQUID UDC GT SCH (08:41)
[2018-10-13] MEDS: HYDROGEN PEROXIDE 3% 118 ML BOTTLE TP SCH ×2 (08:41→21:00)
[2018-10-13] MEDS: LEVETIRACETAM 500 MG/5 ML LIQUID UDC GT SCH ×2 (08:41→21:00)
[2018-10-13] MEDS: NEOMY/BACITRAC/POLYMI OINT 28.35 GM TUBE TOP SCH (08:41)
[2018-10-13] MEDS: HYDROCORTISONE 10 MG GT SCH ×2 (08:41→21:00)
[2018-10-13 10:30] VITALS: BP 146/86
[2018-10-13] MEDS: VITAL AF 1.2 1,000 ML LIQUID GT PRN (16:50)
[2018-10-13] MEDS: MULTIVIT, IRON, MIN NO. 8, FA TABLET GT SCH (21:00)
[2018-10-13 21:03] VITALS: BP 130/86
[2018-10-14] MEDS: ALBUTEROL SULFATE 2.5 MG/3 ML NEBU NEB SCH ×4 (01:22→19:15)
[2018-10-14] MEDS: IPRATROPIUM BROMIDE 0.5 MG/2.5 ML NEBU NEB SCH ×4 (01:22→19:15)
[2018-10-14] MEDS: SUCRALFATE 1 G/10 ML LIQUID UDC GT SCH ×3 (05:49→21:25)
[2018-10-14] MEDS: OMEPRAZOLE 20 MG CAPSULE.DR PO SCH ×2 (05:50→21:25)
[2018-10-14] MEDS: LEVOTHYROXINE SODIUM 75 MCG TABLET GT SCH (05:51)
[2018-10-14 08:05] VITALS: BP 141/81
[2018-10-14] MEDS: ACIDOPHILUS/BULGARICUS CHEW TAB GT SCH ×2 (08:51→21:25)
[2018-10-14] MEDS: Z GUARD REMEDY PASTE 57 GM TUBE TOP SCH ×2 (08:52→21:25)
[2018-10-14] MEDS: POTASSIUM CHLORIDE 40 MEQ/30 ML LIQUID UDC GT SCH (08:52)
[2018-10-14] MEDS: HYDROGEN PEROXIDE 3% 118 ML BOTTLE TP SCH ×2 (08:52→21:25)
[2018-10-14] MEDS: LEVETIRACETAM 500 MG/5 ML LIQUID UDC GT SCH ×2 (08:52→21:25)
[2018-10-14] MEDS: HYDROCORTISONE 10 MG GT SCH ×2 (08:52→21:25)
[2018-10-14] MEDS: BACLOFEN 20 MG TABLET GT SCH ×4 (08:52→21:25)
[2018-10-14] MEDS: HYDROCORTISONE 20MG TABLET GT SCH ×2 (08:52→21:25)
[2018-10-14] MEDS: TERAZOSIN 1 MG CAPSULE GT SCH (08:52)
[2018-10-14] MEDS: NEOMY/BACITRAC/POLYMI OINT 28.35 GM TUBE TOP SCH (08:52)
[2018-10-14] MEDS: VITAL AF 1.2 1,000 ML LIQUID GT PRN (11:00)
[2018-10-14] MEDS: MULTIVIT, IRON, MIN NO. 8, FA TABLET GT SCH (21:25)
[2018-10-14 21:30] VITALS: BP 143/78
[2018-10-15] MEDS: IPRATROPIUM BROMIDE 0.5 MG/2.5 ML NEBU NEB SCH ×4 (00:51→19:45)
[2018-10-15] MEDS: ALBUTEROL SULFATE 2.5 MG/3 ML NEBU NEB SCH ×4 (00:51→19:45)
[2018-10-15] MEDS: LEVOTHYROXINE SODIUM 75 MCG TABLET GT SCH (05:35)
[2018-10-15] MEDS: SUCRALFATE 1 G/10 ML LIQUID UDC GT SCH ×3 (05:35→21:41)
[2018-10-15] MEDS: OMEPRAZOLE 20 MG CAPSULE.DR PO SCH ×2 (05:35→21:41)
[2018-10-15 08:00] VITALS: BP 150/75
[2018-10-15] MEDS: LEVETIRACETAM 500 MG/5 ML LIQUID UDC GT SCH ×2 (08:31→21:41)
[2018-10-15] MEDS: ACIDOPHILUS/BULGARICUS CHEW TAB GT SCH ×2 (08:31→21:41)
[2018-10-15] MEDS: TERAZOSIN 1 MG CAPSULE GT SCH (08:31)
[2018-10-15] MEDS: BACLOFEN 20 MG TABLET GT SCH ×4 (08:32→21:41)
[2018-10-15] MEDS: HYDROCORTISONE 10 MG GT SCH ×2 (08:33→21:41)
[2018-10-15] MEDS: POTASSIUM CHLORIDE 40 MEQ/30 ML LIQUID UDC GT SCH (08:33)
[2018-10-15] MEDS: HYDROCORTISONE 20MG TABLET GT SCH ×2 (08:33→21:41)
[2018-10-15] MEDS: Z GUARD REMEDY PASTE 57 GM TUBE TOP SCH ×2 (08:34→21:41)
[2018-10-15] MEDS: NEOMY/BACITRAC/POLYMI OINT 28.35 GM TUBE TOP SCH (08:34)
[2018-10-15] MEDS: HYDROGEN PEROXIDE 3% 118 ML BOTTLE TP SCH ×2 (08:34→21:41)
[2018-10-15] MEDS: VITAL AF 1.2 1,000 ML LIQUID GT PRN (12:00)
[2018-10-15 21:05] VITALS: BP 136/81
[2018-10-15] MEDS: MULTIVIT, IRON, MIN NO. 8, FA TABLET GT SCH (21:41)
[2018-10-16] MEDS: IPRATROPIUM BROMIDE 0.5 MG/2.5 ML NEBU NEB SCH ×4 (01:05→19:41)
[2018-10-16] MEDS: ALBUTEROL SULFATE 2.5 MG/3 ML NEBU NEB SCH ×4 (01:05→19:41)
[2018-10-16] MEDS: LEVOTHYROXINE SODIUM 75 MCG TABLET GT SCH (06:23)
[2018-10-16] MEDS: SUCRALFATE 1 G/10 ML LIQUID UDC GT SCH ×3 (06:23→22:12)
[2018-10-16] MEDS: OMEPRAZOLE 20 MG CAPSULE.DR PO SCH ×2 (06:23→22:12)
[2018-10-16 08:00] VITALS: BP 135/90
[2018-10-16] MEDS: ACIDOPHILUS/BULGARICUS CHEW TAB GT SCH ×2 (08:58→20:40)
[2018-10-16] MEDS: TERAZOSIN 1 MG CAPSULE GT SCH (08:58)
[2018-10-16] MEDS: LEVETIRACETAM 500 MG/5 ML LIQUID UDC GT SCH ×2 (08:58→20:40)
[2018-10-16] MEDS: BACLOFEN 20 MG TABLET GT SCH ×5 (08:59→20:40)
[2018-10-16] MEDS: NEOMY/BACITRAC/POLYMI OINT 28.35 GM TUBE TOP SCH (09:00)
[2018-10-16] MEDS: HYDROGEN PEROXIDE 3% 118 ML BOTTLE TP SCH ×2 (09:00→20:41)
[2018-10-16] MEDS: HYDROCORTISONE 20MG TABLET GT SCH ×2 (09:00→20:40)
[2018-10-16] MEDS: Z GUARD REMEDY PASTE 57 GM TUBE TOP SCH ×2 (09:00→20:40)
[2018-10-16] MEDS: HYDROCORTISONE 10 MG GT SCH ×2 (09:00→20:40)
[2018-10-16] MEDS: POTASSIUM CHLORIDE 40 MEQ/30 ML LIQUID UDC GT SCH (09:00)
[2018-10-16] MEDS: VITAL AF 1.2 1,000 ML LIQUID GT PRN (09:10)
--- NOTE | 2018-10-16 12:26 | NUR ---
IDT MEETING: no significant changed, will f/u on next IDT meeting.
--- NOTE | 2018-10-16 13:41 | NUR ---
INTERDISCIPLINARY PLAN OF CARE CONFERENCE was held today. Patient's brother was invited to the meeting, but he was unable to attend. Dr. Ocasio and the Interdisciplinary Team reviewed the current plan of care in detail. RN reported on patient's medical condition; stating that patient continues to remain on contact isolation. See RN IDT conference notes. No major changes were reported. See also all other disciplines IDT notes and physician's progress notes for additional details.
--- NOTE | 2018-10-16 16:07 | NUR ---
Pharmacy Update from Todays 10/16/18 IDT Meeting: VS: Temp 97.8 BP 135/90 HR 85 LABS: (from 09/18/18) Wbc 8.5 H/H 12.8/37.9 Plt 226 Na 141 K 3.6 Cl 106 CO2 26 BUN/SCr 31/0.5 BS 113 Ca 8.8 MEDICATION USE REVIEWED: > Pt not on any anti-psych medications > Pt is one Keppra 1000mg q12h, no report of sz activity, latest calculated CrCl >130 ml/min, renal fxn ok for current dose > Pt is on Synthroid 75 mcg daily, last TSH on 08/13/18 was 0.537 (0.358-3.74) > On K 20meq daily as of 02/21, latest K is 3.6 > PRN MED USAGE: (Dec) Tylenol for pain used x 8 Tylenol for temp used x 0 Imodium x 2 NEW ORDERS NOTED: > one time dose of KCl 40meq on 09/19, K now wnl Pt was reviewed and discussed in depth, no medication issues noted and pt remains stable on current regimen. No further recs at this time, will continue to follow
[2018-10-16 19:58] VITALS: BP 124/73
[2018-10-16] MEDS: MULTIVIT, IRON, MIN NO. 8, FA TABLET GT SCH (20:40)
[2018-10-17] MEDS: IPRATROPIUM BROMIDE 0.5 MG/2.5 ML NEBU NEB SCH ×4 (00:41→19:11)
[2018-10-17] MEDS: ALBUTEROL SULFATE 2.5 MG/3 ML NEBU NEB SCH ×4 (00:41→19:11)
[2018-10-17] MEDS: VITAL AF 1.2 1,000 ML LIQUID GT PRN (04:19)
[2018-10-17] MEDS: LEVOTHYROXINE SODIUM 75 MCG TABLET GT SCH (05:59)
[2018-10-17] MEDS: SUCRALFATE 1 G/10 ML LIQUID UDC GT SCH ×3 (05:59→22:38)
[2018-10-17] MEDS: OMEPRAZOLE 20 MG CAPSULE.DR PO SCH ×2 (05:59→22:38)
[2018-10-17 08:00] VITALS: BP 144/86
[2018-10-17] MEDS: ACIDOPHILUS/BULGARICUS CHEW TAB GT SCH ×2 (08:40→20:28)
[2018-10-17] MEDS: TERAZOSIN 1 MG CAPSULE GT SCH (08:41)
[2018-10-17] MEDS: LEVETIRACETAM 500 MG/5 ML LIQUID UDC GT SCH ×2 (08:42→20:28)
[2018-10-17] MEDS: BACLOFEN 20 MG TABLET GT SCH ×4 (08:42→20:28)
[2018-10-17] MEDS: HYDROCORTISONE 10 MG GT SCH ×2 (08:45→20:28)
[2018-10-17] MEDS: HYDROCORTISONE 20MG TABLET GT SCH ×2 (08:45→20:28)
[2018-10-17] MEDS: POTASSIUM CHLORIDE 40 MEQ/30 ML LIQUID UDC GT SCH (08:46)
[2018-10-17] MEDS: Z GUARD REMEDY PASTE 57 GM TUBE TOP SCH ×2 (08:46→20:28)
[2018-10-17] MEDS: NEOMY/BACITRAC/POLYMI OINT 28.35 GM TUBE TOP SCH (08:46)
[2018-10-17] MEDS: HYDROGEN PEROXIDE 3% 118 ML BOTTLE TP SCH ×2 (08:47→20:28)
--- NOTE | 2018-10-17 11:31 | NUR ---
On 10/16/18, BRIAN had received a call from Mrs. Jaquez at the [facility] office [phone]. Mrs. Jaquez was requesting information regarding patient's initial admission date and family contact name/number. BRIAN obtained this information from admitting and on 10/17/18 at 11:30am faxed patient's face sheet, which included above requested information, to Mrs. Jaquez at [phone]. BRIAN then called Mrs. Jaquez at [phone] and left her a voicemail message stating that the information she had requested was faxed to her by this SW.
[2018-10-17 19:58] VITALS: BP 117/71
[2018-10-17] MEDS: MULTIVIT, IRON, MIN NO. 8, FA TABLET GT SCH (20:28)
[2018-10-18] MEDS: VITAL AF 1.2 1,000 ML LIQUID GT PRN ×2 (00:26→17:20)
[2018-10-18] MEDS: IPRATROPIUM BROMIDE 0.5 MG/2.5 ML NEBU NEB SCH ×4 (01:10→19:16)
[2018-10-18] MEDS: ALBUTEROL SULFATE 2.5 MG/3 ML NEBU NEB SCH ×4 (01:10→19:16)
[2018-10-18] MEDS: OMEPRAZOLE 20 MG CAPSULE.DR PO SCH ×2 (05:53→21:48)
[2018-10-18] MEDS: SUCRALFATE 1 G/10 ML LIQUID UDC GT SCH ×3 (05:53→21:48)
[2018-10-18] MEDS: LEVOTHYROXINE SODIUM 75 MCG TABLET GT SCH (05:54)
[2018-10-18] MEDS: ACIDOPHILUS/BULGARICUS CHEW TAB GT SCH ×2 (08:36→21:47)
[2018-10-18] MEDS: HYDROCORTISONE 10 MG GT SCH ×2 (08:38→21:47)
[2018-10-18] MEDS: HYDROCORTISONE 20MG TABLET GT SCH ×2 (08:38→21:47)
[2018-10-18] MEDS: LEVETIRACETAM 500 MG/5 ML LIQUID UDC GT SCH ×2 (08:38→21:47)
[2018-10-18] MEDS: BACLOFEN 20 MG TABLET GT SCH ×4 (08:38→21:47)
[2018-10-18] MEDS: TERAZOSIN 1 MG CAPSULE GT SCH (08:38)
[2018-10-18] MEDS: POTASSIUM CHLORIDE 40 MEQ/30 ML LIQUID UDC GT SCH (08:39)
[2018-10-18] MEDS: HYDROGEN PEROXIDE 3% 118 ML BOTTLE TP SCH ×2 (08:39→21:48)
[2018-10-18] MEDS: Z GUARD REMEDY PASTE 57 GM TUBE TOP SCH ×2 (08:39→21:47)
[2018-10-18 09:30] VITALS: BP 133/72
--- NOTE | 2018-10-18 12:04 | NUR ---
SEEN BY RADHA DEUTSCH.
[2018-10-18 20:29] VITALS: BP 139/85
[2018-10-18] MEDS: MULTIVIT, IRON, MIN NO. 8, FA TABLET GT SCH (21:47)
[2018-10-19] MEDS: IPRATROPIUM BROMIDE 0.5 MG/2.5 ML NEBU NEB SCH ×4 (01:42→19:12)
[2018-10-19] MEDS: ALBUTEROL SULFATE 2.5 MG/3 ML NEBU NEB SCH ×4 (01:42→19:12)
[2018-10-19] MEDS: SUCRALFATE 1 G/10 ML LIQUID UDC GT SCH ×3 (05:41→22:10)
[2018-10-19] MEDS: OMEPRAZOLE 20 MG CAPSULE.DR PO SCH ×2 (05:42→22:10)
[2018-10-19] MEDS: LEVOTHYROXINE SODIUM 75 MCG TABLET GT SCH (05:42)
[2018-10-19] MEDS: ACIDOPHILUS/BULGARICUS CHEW TAB GT SCH ×2 (08:36→20:55)
[2018-10-19] MEDS: TERAZOSIN 1 MG CAPSULE GT SCH (08:38)
[2018-10-19] MEDS: HYDROCORTISONE 10 MG GT SCH ×2 (08:39→20:55)
[2018-10-19] MEDS: BACLOFEN 20 MG TABLET GT SCH ×4 (08:39→20:55)
[2018-10-19] MEDS: LEVETIRACETAM 500 MG/5 ML LIQUID UDC GT SCH ×2 (08:39→20:55)
[2018-10-19] MEDS: HYDROCORTISONE 20MG TABLET GT SCH ×2 (08:39→20:56)
[2018-10-19] MEDS: POTASSIUM CHLORIDE 40 MEQ/30 ML LIQUID UDC GT SCH (08:40)
[2018-10-19] MEDS: Z GUARD REMEDY PASTE 57 GM TUBE TOP SCH ×2 (08:40→20:56)
[2018-10-19] MEDS: HYDROGEN PEROXIDE 3% 118 ML BOTTLE TP SCH ×2 (08:40→20:56)
--- NOTE | 2018-10-19 16:00 | NUR ---
SEEN BY GEE Castrejon) JOANNAO.
[2018-10-19] MEDS: VITAL AF 1.2 1,000 ML LIQUID GT PRN (17:04)
[2018-10-19 18:08] VITALS: BP 146/85
[2018-10-19 20:42] VITALS: BP 148/91
[2018-10-19] MEDS: MULTIVIT, IRON, MIN NO. 8, FA TABLET GT SCH (20:56)
[2018-10-20] MEDS: IPRATROPIUM BROMIDE 0.5 MG/2.5 ML NEBU NEB SCH ×4 (01:00→18:58)
[2018-10-20] MEDS: ALBUTEROL SULFATE 2.5 MG/3 ML NEBU NEB SCH ×4 (01:00→18:58)
[2018-10-20] MEDS: OMEPRAZOLE 20 MG CAPSULE.DR PO SCH ×2 (05:28→22:02)
[2018-10-20] MEDS: SUCRALFATE 1 G/10 ML LIQUID UDC GT SCH ×3 (05:28→22:02)
[2018-10-20] MEDS: VITAL AF 1.2 1,000 ML LIQUID GT PRN (05:29)
[2018-10-20] MEDS: LEVOTHYROXINE SODIUM 75 MCG TABLET GT SCH (05:56)
[2018-10-20] MEDS: TERAZOSIN 1 MG CAPSULE GT SCH (08:31)
[2018-10-20] MEDS: ACIDOPHILUS/BULGARICUS CHEW TAB GT SCH ×2 (08:31→20:49)
[2018-10-20] MEDS: HYDROCORTISONE 20MG TABLET GT SCH ×2 (08:34→20:50)
[2018-10-20] MEDS: BACLOFEN 20 MG TABLET GT SCH ×4 (08:34→20:50)
[2018-10-20] MEDS: HYDROCORTISONE 10 MG GT SCH ×2 (08:34→20:50)
[2018-10-20] MEDS: POTASSIUM CHLORIDE 40 MEQ/30 ML LIQUID UDC GT SCH (08:34)
[2018-10-20] MEDS: LEVETIRACETAM 500 MG/5 ML LIQUID UDC GT SCH ×2 (08:34→20:49)
[2018-10-20] MEDS: Z GUARD REMEDY PASTE 57 GM TUBE TOP SCH ×2 (08:35→20:50)
[2018-10-20] MEDS: HYDROGEN PEROXIDE 3% 118 ML BOTTLE TP SCH ×2 (08:35→20:50)
[2018-10-20 13:08] VITALS: BP 122/74
[2018-10-20] MEDS: MULTIVIT, IRON, MIN NO. 8, FA TABLET GT SCH (20:50)
[2018-10-20 21:25] VITALS: BP 110/74
--- NOTE | 2018-10-20 23:23 | NUR ---
Seen notes from Dr. iGbson with no new order.
[2018-10-21] MEDS: IPRATROPIUM BROMIDE 0.5 MG/2.5 ML NEBU NEB SCH ×5 (01:10→21:00)
[2018-10-21] MEDS: ALBUTEROL SULFATE 2.5 MG/3 ML NEBU NEB SCH ×4 (01:10→19:39)
[2018-10-21] MEDS: VITAL AF 1.2 1,000 ML LIQUID GT PRN (01:37)
[2018-10-21] MEDS: SUCRALFATE 1 G/10 ML LIQUID UDC GT SCH ×3 (05:26→21:20)
[2018-10-21] MEDS: OMEPRAZOLE 20 MG CAPSULE.DR PO SCH ×2 (05:26→21:20)
[2018-10-21] MEDS: LEVOTHYROXINE SODIUM 75 MCG TABLET GT SCH (05:32)
[2018-10-21] MEDS: TERAZOSIN 1 MG CAPSULE GT SCH (08:40)
[2018-10-21] MEDS: ACIDOPHILUS/BULGARICUS CHEW TAB GT SCH ×2 (08:40→21:18)
[2018-10-21] MEDS: LEVETIRACETAM 500 MG/5 ML LIQUID UDC GT SCH ×2 (08:40→21:18)
[2018-10-21] MEDS: HYDROGEN PEROXIDE 3% 118 ML BOTTLE TP SCH ×2 (08:42→21:20)
[2018-10-21] MEDS: POTASSIUM CHLORIDE 40 MEQ/30 ML LIQUID UDC GT SCH (08:42)
[2018-10-21] MEDS: BACLOFEN 20 MG TABLET GT SCH ×4 (08:42→21:18)
[2018-10-21] MEDS: Z GUARD REMEDY PASTE 57 GM TUBE TOP SCH ×2 (08:42→21:19)
[2018-10-21] MEDS: HYDROCORTISONE 20MG TABLET GT SCH ×2 (08:42→21:18)
[2018-10-21] MEDS: HYDROCORTISONE 10 MG GT SCH ×2 (08:42→21:18)
[2018-10-21 11:31] VITALS: BP 107/70
[2018-10-21 20:28] VITALS: BP 146/80
[2018-10-21] MEDS: MULTIVIT, IRON, MIN NO. 8, FA TABLET GT SCH (21:19)
[2018-10-22] MEDS: ALBUTEROL SULFATE 2.5 MG/3 ML NEBU NEB SCH ×4 (00:56→19:07)
[2018-10-22] MEDS: IPRATROPIUM BROMIDE 0.5 MG/2.5 ML NEBU NEB SCH ×4 (00:56→19:07)
[2018-10-22] MEDS: OMEPRAZOLE 20 MG CAPSULE.DR PO SCH ×2 (05:02→22:09)
[2018-10-22] MEDS: SUCRALFATE 1 G/10 ML LIQUID UDC GT SCH ×3 (05:02→22:09)
[2018-10-22] MEDS: LEVOTHYROXINE SODIUM 75 MCG TABLET GT SCH (06:37)
[2018-10-22 08:05] VITALS: BP 137/80
[2018-10-22] MEDS: TERAZOSIN 1 MG CAPSULE GT SCH (08:41)
[2018-10-22] MEDS: ACIDOPHILUS/BULGARICUS CHEW TAB GT SCH ×2 (08:41→20:04)
[2018-10-22] MEDS: LEVETIRACETAM 500 MG/5 ML LIQUID UDC GT SCH ×2 (08:41→20:04)
[2018-10-22] MEDS: BACLOFEN 20 MG TABLET GT SCH ×4 (08:42→20:04)
[2018-10-22] MEDS: HYDROCORTISONE 10 MG GT SCH ×2 (08:42→20:04)
[2018-10-22] MEDS: HYDROCORTISONE 20MG TABLET GT SCH ×2 (08:42→20:04)
[2018-10-22] MEDS: HYDROGEN PEROXIDE 3% 118 ML BOTTLE TP SCH ×2 (08:42→20:05)
[2018-10-22] MEDS: POTASSIUM CHLORIDE 40 MEQ/30 ML LIQUID UDC GT SCH (08:42)
[2018-10-22] MEDS: Z GUARD REMEDY PASTE 57 GM TUBE TOP SCH ×2 (08:42→20:04)
--- NOTE | 2018-10-22 13:49 | NUR ---
SEEN BY RADHA DEUTSCH.
[2018-10-22] MEDS: VITAL AF 1.2 1,000 ML LIQUID GT PRN (19:46)
--- NOTE | 2018-10-22 19:51 | NUR ---
Seen and examined by Seble Gutierrez NP with no orders.
[2018-10-22] MEDS: MULTIVIT, IRON, MIN NO. 8, FA TABLET GT SCH (20:04)
[2018-10-22 20:53] VITALS: BP 122/65
[2018-10-23] MEDS: IPRATROPIUM BROMIDE 0.5 MG/2.5 ML NEBU NEB SCH ×4 (00:54→19:34)
[2018-10-23] MEDS: ALBUTEROL SULFATE 2.5 MG/3 ML NEBU NEB SCH ×4 (00:54→19:34)
[2018-10-23] MEDS: OMEPRAZOLE 20 MG CAPSULE.DR PO SCH ×2 (06:16→22:02)
[2018-10-23] MEDS: LEVOTHYROXINE SODIUM 75 MCG TABLET GT SCH (06:16)
[2018-10-23] MEDS: SUCRALFATE 1 G/10 ML LIQUID UDC GT SCH ×3 (06:16→22:02)
[2018-10-23 08:03] VITALS: BP 123/77
[2018-10-23] MEDS: ACIDOPHILUS/BULGARICUS CHEW TAB GT SCH ×2 (08:34→21:00)
[2018-10-23] MEDS: LEVETIRACETAM 500 MG/5 ML LIQUID UDC GT SCH ×2 (08:35→21:00)
[2018-10-23] MEDS: TERAZOSIN 1 MG CAPSULE GT SCH (08:35)
[2018-10-23] MEDS: HYDROGEN PEROXIDE 3% 118 ML BOTTLE TP SCH ×2 (08:36→21:00)
[2018-10-23] MEDS: HYDROCORTISONE 20MG TABLET GT SCH ×2 (08:36→21:00)
[2018-10-23] MEDS: POTASSIUM CHLORIDE 40 MEQ/30 ML LIQUID UDC GT SCH (08:36)
[2018-10-23] MEDS: BACLOFEN 20 MG TABLET GT SCH ×4 (08:36→21:00)
[2018-10-23] MEDS: HYDROCORTISONE 10 MG GT SCH ×2 (08:36→21:00)
[2018-10-23] MEDS: Z GUARD REMEDY PASTE 57 GM TUBE TOP SCH ×2 (08:36→21:00)
--- NOTE | 2018-10-23 09:12 | NUR ---
Patient was seen by dentist Dr. Bee on 10/22/18 for his annual teeth cleaning. See dental notes for details.
[2018-10-23] MEDS: VITAL AF 1.2 1,000 ML LIQUID GT PRN (16:43)
[2018-10-23 20:00] VITALS: BP 126/71
[2018-10-23] MEDS: MULTIVIT, IRON, MIN NO. 8, FA TABLET GT SCH (21:00)
[2018-10-24] MEDS: IPRATROPIUM BROMIDE 0.5 MG/2.5 ML NEBU NEB SCH ×4 (01:18→18:57)
[2018-10-24] MEDS: ALBUTEROL SULFATE 2.5 MG/3 ML NEBU NEB SCH ×4 (01:18→18:57)
[2018-10-24] MEDS: SUCRALFATE 1 G/10 ML LIQUID UDC GT SCH ×3 (05:02→21:00)
[2018-10-24] MEDS: OMEPRAZOLE 20 MG CAPSULE.DR PO SCH ×2 (05:02→21:00)
[2018-10-24] MEDS: LEVOTHYROXINE SODIUM 75 MCG TABLET GT SCH (06:34)
[2018-10-24 08:04] VITALS: BP 148/93
[2018-10-24] MEDS: TERAZOSIN 1 MG CAPSULE GT SCH (09:10)
[2018-10-24] MEDS: LEVETIRACETAM 500 MG/5 ML LIQUID UDC GT SCH ×2 (09:10→20:49)
[2018-10-24] MEDS: ACIDOPHILUS/BULGARICUS CHEW TAB GT SCH ×2 (09:10→20:47)
[2018-10-24] MEDS: HYDROCORTISONE 10 MG GT SCH ×2 (09:11→20:50)
[2018-10-24] MEDS: BACLOFEN 20 MG TABLET GT SCH ×4 (09:11→20:49)
[2018-10-24] MEDS: HYDROCORTISONE 20MG TABLET GT SCH ×2 (09:11→20:50)
[2018-10-24] MEDS: POTASSIUM CHLORIDE 40 MEQ/30 ML LIQUID UDC GT SCH (09:12)
[2018-10-24] MEDS: Z GUARD REMEDY PASTE 57 GM TUBE TOP SCH ×2 (09:12→20:50)
[2018-10-24] MEDS: HYDROGEN PEROXIDE 3% 118 ML BOTTLE TP SCH ×2 (09:12→20:50)
--- NOTE | 2018-10-24 11:20 | NUR ---
Seen and examined by Dr Ocasio with new orders noted.
--- NOTE | 2018-10-24 14:18 | NUR ---
Decannulated, emergency back up trach used.. Nurse at bedside.. No s/s of distress noted after trach placement..
[2018-10-24] MEDS: VITAL AF 1.2 1,000 ML LIQUID GT PRN (16:37)
[2018-10-24 20:00] VITALS: BP 144/91
[2018-10-24] MEDS: MULTIVIT, IRON, MIN NO. 8, FA TABLET GT SCH (20:50)
[2018-10-25] MEDS: ACETAMINOPHEN 650 MG/20 ML UDC- SA PATIENTS-PAIN ONLY GT PRN (00:55)
[2018-10-25] MEDS: IPRATROPIUM BROMIDE 0.5 MG/2.5 ML NEBU NEB SCH ×4 (01:36→19:32)
[2018-10-25] MEDS: ALBUTEROL SULFATE 2.5 MG/3 ML NEBU NEB SCH ×4 (01:37→19:32)
[2018-10-25] MEDS: SUCRALFATE 1 G/10 ML LIQUID UDC GT SCH ×3 (05:16→22:03)
[2018-10-25] MEDS: OMEPRAZOLE 20 MG CAPSULE.DR PO SCH ×2 (05:18→22:03)
[2018-10-25] MEDS: LEVOTHYROXINE SODIUM 75 MCG TABLET GT SCH (05:48)
[2018-10-25 08:00] VITALS: BP 120/64
[2018-10-25] MEDS: ACIDOPHILUS/BULGARICUS CHEW TAB GT SCH ×2 (08:15→20:51)
[2018-10-25] MEDS: BACLOFEN 20 MG TABLET GT SCH ×4 (08:16→20:53)
[2018-10-25] MEDS: TERAZOSIN 1 MG CAPSULE GT SCH (08:16)
[2018-10-25] MEDS: Z GUARD REMEDY PASTE 57 GM TUBE TOP SCH ×2 (08:18→20:53)
[2018-10-25] MEDS: HYDROGEN PEROXIDE 3% 118 ML BOTTLE TP SCH ×2 (08:18→20:53)
[2018-10-25] MEDS: LEVETIRACETAM 500 MG/5 ML LIQUID UDC GT SCH ×2 (08:18→20:53)
[2018-10-25] MEDS: POTASSIUM CHLORIDE 40 MEQ/30 ML LIQUID UDC GT SCH (08:18)
[2018-10-25] MEDS: HYDROCORTISONE 10 MG GT SCH ×2 (08:18→20:53)
[2018-10-25] MEDS: HYDROCORTISONE 20MG TABLET GT SCH ×2 (08:18→20:53)
[2018-10-25] MEDS: VITAL AF 1.2 1,000 ML LIQUID GT PRN (13:54)
[2018-10-25] MEDS: MULTIVIT, IRON, MIN NO. 8, FA TABLET GT SCH (20:53)
[2018-10-25 21:00] VITALS: BP 147/89
[2018-10-26] MEDS: ALBUTEROL SULFATE 2.5 MG/3 ML NEBU NEB SCH ×4 (01:12→19:20)
[2018-10-26] MEDS: IPRATROPIUM BROMIDE 0.5 MG/2.5 ML NEBU NEB SCH ×4 (01:12→19:20)
[2018-10-26] MEDS: VITAL AF 1.2 1,000 ML LIQUID GT PRN (03:31)
[2018-10-26] MEDS: SUCRALFATE 1 G/10 ML LIQUID UDC GT SCH ×3 (05:47→21:16)
[2018-10-26] MEDS: LEVOTHYROXINE SODIUM 75 MCG TABLET GT SCH (05:47)
[2018-10-26] MEDS: OMEPRAZOLE 20 MG CAPSULE.DR PO SCH ×2 (05:47→21:16)
[2018-10-26] MEDS: ACETAMINOPHEN 650 MG/20 ML UDC- SA PATIENTS-PAIN ONLY GT PRN (05:48)
[2018-10-26 08:00] VITALS: BP 120/64
[2018-10-26] MEDS: ACIDOPHILUS/BULGARICUS CHEW TAB GT SCH ×2 (08:19→21:14)
[2018-10-26] MEDS: LEVETIRACETAM 500 MG/5 ML LIQUID UDC GT SCH ×2 (08:19→21:15)
[2018-10-26] MEDS: TERAZOSIN 1 MG CAPSULE GT SCH (08:19)
[2018-10-26] MEDS: HYDROCORTISONE 20MG TABLET GT SCH ×2 (08:20→21:15)
[2018-10-26] MEDS: HYDROGEN PEROXIDE 3% 118 ML BOTTLE TP SCH ×2 (08:20→21:16)
[2018-10-26] MEDS: BACLOFEN 20 MG TABLET GT SCH ×4 (08:20→21:15)
[2018-10-26] MEDS: Z GUARD REMEDY PASTE 57 GM TUBE TOP SCH ×2 (08:20→21:16)
[2018-10-26] MEDS: HYDROCORTISONE 10 MG GT SCH ×2 (08:20→21:15)
[2018-10-26] MEDS: POTASSIUM CHLORIDE 40 MEQ/30 ML LIQUID UDC GT SCH (08:20)
[2018-10-26] MEDS: MULTIVIT, IRON, MIN NO. 8, FA TABLET GT SCH (21:16)
[2018-10-26 22:00] VITALS: BP 150/79
[2018-10-27] MEDS: IPRATROPIUM BROMIDE 0.5 MG/2.5 ML NEBU NEB SCH ×4 (01:08→19:49)
[2018-10-27] MEDS: ALBUTEROL SULFATE 2.5 MG/3 ML NEBU NEB SCH ×4 (01:08→19:49)
[2018-10-27] MEDS: VITAL AF 1.2 1,000 ML LIQUID GT PRN ×2 (01:15→18:16)
[2018-10-27] MEDS: SUCRALFATE 1 G/10 ML LIQUID UDC GT SCH ×3 (05:52→21:23)
[2018-10-27] MEDS: OMEPRAZOLE 20 MG CAPSULE.DR PO SCH ×2 (05:52→21:23)
[2018-10-27] MEDS: LEVOTHYROXINE SODIUM 75 MCG TABLET GT SCH (05:52)
[2018-10-27 08:00] VITALS: BP 114/67
[2018-10-27] MEDS: ACIDOPHILUS/BULGARICUS CHEW TAB GT SCH ×2 (08:45→21:23)
[2018-10-27] MEDS: LEVETIRACETAM 500 MG/5 ML LIQUID UDC GT SCH ×2 (09:03→21:23)
[2018-10-27] MEDS: BACLOFEN 20 MG TABLET GT SCH ×4 (09:03→21:23)
[2018-10-27] MEDS: POTASSIUM CHLORIDE 40 MEQ/30 ML LIQUID UDC GT SCH (09:03)
[2018-10-27] MEDS: Z GUARD REMEDY PASTE 57 GM TUBE TOP SCH ×2 (09:03→21:23)
[2018-10-27] MEDS: HYDROCORTISONE 20MG TABLET GT SCH ×2 (09:03→21:23)
[2018-10-27] MEDS: HYDROCORTISONE 10 MG GT SCH ×2 (09:03→21:23)
[2018-10-27] MEDS: HYDROGEN PEROXIDE 3% 118 ML BOTTLE TP SCH ×2 (09:03→21:23)
[2018-10-27] MEDS: TERAZOSIN 1 MG CAPSULE GT SCH (09:03)
[2018-10-27 20:58] VITALS: BP 136/72
[2018-10-27] MEDS: MULTIVIT, IRON, MIN NO. 8, FA TABLET GT SCH (21:23)
[2018-10-28] MEDS: ALBUTEROL SULFATE 2.5 MG/3 ML NEBU NEB SCH ×4 (01:30→19:07)
[2018-10-28] MEDS: IPRATROPIUM BROMIDE 0.5 MG/2.5 ML NEBU NEB SCH ×4 (01:30→19:07)
[2018-10-28] MEDS: SUCRALFATE 1 G/10 ML LIQUID UDC GT SCH ×3 (05:28→21:51)
[2018-10-28] MEDS: OMEPRAZOLE 20 MG CAPSULE.DR PO SCH ×2 (05:28→21:52)
[2018-10-28] MEDS: LEVOTHYROXINE SODIUM 75 MCG TABLET GT SCH (05:47)
[2018-10-28 08:04] VITALS: BP 145/80
[2018-10-28] MEDS: LEVETIRACETAM 500 MG/5 ML LIQUID UDC GT SCH ×2 (08:38→21:51)
[2018-10-28] MEDS: Z GUARD REMEDY PASTE 57 GM TUBE TOP SCH ×2 (08:38→21:51)
[2018-10-28] MEDS: HYDROCORTISONE 20MG TABLET GT SCH ×2 (08:38→21:51)
[2018-10-28] MEDS: TERAZOSIN 1 MG CAPSULE GT SCH (08:38)
[2018-10-28] MEDS: HYDROGEN PEROXIDE 3% 118 ML BOTTLE TP SCH ×2 (08:38→21:51)
[2018-10-28] MEDS: ACIDOPHILUS/BULGARICUS CHEW TAB GT SCH ×2 (08:38→21:51)
[2018-10-28] MEDS: HYDROCORTISONE 10 MG GT SCH ×2 (08:38→21:51)
[2018-10-28] MEDS: POTASSIUM CHLORIDE 40 MEQ/30 ML LIQUID UDC GT SCH (08:38)
[2018-10-28] MEDS: BACLOFEN 20 MG TABLET GT SCH ×4 (08:38→21:51)
[2018-10-28] MEDS: VITAL AF 1.2 1,000 ML LIQUID GT PRN (13:23)
[2018-10-28 20:20] VITALS: BP 136/72
[2018-10-28] MEDS: MULTIVIT, IRON, MIN NO. 8, FA TABLET GT SCH (21:51)
[2018-10-29] MEDS: IPRATROPIUM BROMIDE 0.5 MG/2.5 ML NEBU NEB SCH ×4 (01:42→19:40)
[2018-10-29] MEDS: ALBUTEROL SULFATE 2.5 MG/3 ML NEBU NEB SCH ×4 (01:42→19:40)
[2018-10-29] MEDS: SUCRALFATE 1 G/10 ML LIQUID UDC GT SCH ×3 (05:24→21:02)
[2018-10-29] MEDS: OMEPRAZOLE 20 MG CAPSULE.DR PO SCH ×2 (05:25→21:02)
[2018-10-29] MEDS: LEVOTHYROXINE SODIUM 75 MCG TABLET GT SCH (05:46)
[2018-10-29] MEDS: VITAL AF 1.2 1,000 ML LIQUID GT PRN (07:22)
[2018-10-29 08:06] VITALS: BP 134/92
[2018-10-29 08:24] LABS: CREATININE 0.7 mg/dL (0.6-1.3)
[2018-10-29] MEDS: HYDROCORTISONE 20MG TABLET GT SCH ×2 (08:43→21:02)
[2018-10-29] MEDS: Z GUARD REMEDY PASTE 57 GM TUBE TOP SCH ×2 (08:43→21:02)
[2018-10-29] MEDS: BACLOFEN 20 MG TABLET GT SCH ×4 (08:43→21:02)
[2018-10-29] MEDS: HYDROCORTISONE 10 MG GT SCH ×2 (08:43→21:02)
[2018-10-29] MEDS: ACIDOPHILUS/BULGARICUS CHEW TAB GT SCH ×2 (08:43→21:02)
[2018-10-29] MEDS: LEVETIRACETAM 500 MG/5 ML LIQUID UDC GT SCH ×2 (08:43→21:02)
[2018-10-29] MEDS: TERAZOSIN 1 MG CAPSULE GT SCH (08:43)
[2018-10-29] MEDS: POTASSIUM CHLORIDE 40 MEQ/30 ML LIQUID UDC GT SCH (08:43)
[2018-10-29] MEDS: HYDROGEN PEROXIDE 3% 118 ML BOTTLE TP SCH ×2 (08:43→21:02)
[2018-10-29 09:07] LABS: BASOPHILS # (AUTO) 0.1 K/uL (0.0-8.0); BASOPHILS % (AUTO) 0.7 % (0.0-2.0); EOSINOPHILS # (AUTO) 0.3 K/uL (0.0-0.7); HEMATOCRIT 34.9 % (36.7-47.1); HEMOGLOBIN 11.8 g/dL (12.5-16.3); LYMPHOCYTES # (AUTO) 1.1 K/uL (20.0-40.0); LYMPHOCYTES % (AUTO) 12.1 % (20.5-51.5); MEAN CORPUSCULAR HEMOGLOBIN 28.4 uug (23.8-33.4); MEAN CORPUSCULAR HGB CONC 34 g/dL (32.5-36.3); MEAN CORPUSCULAR VOLUME 83.9 fL (73.0-96.2); MONOCYTES # (AUTO) 1.1 K/uL (2.0-10.0); MONOCYTES % (AUTO) 13.2 % (0.0-11.0); NEUTROPHILS # (AUTO) 6.1 K/uL (1.8-8.9); PLATELET COUNT (AUTO) 255 K/uL (152-348); RED BLOOD CELL COUNT(AUTO) 4.16 MIL/uL (4.06-5.63); WHITE BLOOD COUNT (AUTO) 8.7 K/uL (3.6-10.2)
[2018-10-29 20:19] VITALS: BP 133/87
[2018-10-29] MEDS: MULTIVIT, IRON, MIN NO. 8, FA TABLET GT SCH (21:02)
[2018-10-30] MEDS: ALBUTEROL SULFATE 2.5 MG/3 ML NEBU NEB SCH ×4 (01:19→19:19)
[2018-10-30] MEDS: IPRATROPIUM BROMIDE 0.5 MG/2.5 ML NEBU NEB SCH ×4 (01:19→19:19)
[2018-10-30] MEDS: VITAL AF 1.2 1,000 ML LIQUID GT PRN ×2 (01:21→22:50)
[2018-10-30] MEDS: ACETAMINOPHEN 650 MG/20 ML UDC- SA PATIENTS-PAIN ONLY GT PRN (03:17)
[2018-10-30] MEDS: SUCRALFATE 1 G/10 ML LIQUID UDC GT SCH ×3 (05:47→21:19)
[2018-10-30] MEDS: OMEPRAZOLE 20 MG CAPSULE.DR PO SCH ×2 (05:47→21:20)
[2018-10-30] MEDS: LEVOTHYROXINE SODIUM 75 MCG TABLET GT SCH (05:47)
[2018-10-30 08:05] VITALS: BP 144/93
[2018-10-30] MEDS: ACIDOPHILUS/BULGARICUS CHEW TAB GT SCH ×2 (08:52→21:16)
[2018-10-30] MEDS: HYDROGEN PEROXIDE 3% 118 ML BOTTLE TP SCH ×2 (08:53→21:18)
[2018-10-30] MEDS: BACLOFEN 20 MG TABLET GT SCH ×4 (08:53→21:16)
[2018-10-30] MEDS: Z GUARD REMEDY PASTE 57 GM TUBE TOP SCH ×2 (08:53→21:18)
[2018-10-30] MEDS: TERAZOSIN 1 MG CAPSULE GT SCH (08:53)
[2018-10-30] MEDS: HYDROCORTISONE 20MG TABLET GT SCH ×2 (08:53→21:17)
[2018-10-30] MEDS: HYDROCORTISONE 10 MG GT SCH ×2 (08:53→21:17)
[2018-10-30] MEDS: POTASSIUM CHLORIDE 40 MEQ/30 ML LIQUID UDC GT SCH (08:53)
[2018-10-30] MEDS: LEVETIRACETAM 500 MG/5 ML LIQUID UDC GT SCH ×2 (08:53→21:16)
--- NOTE | 2018-10-30 15:51 | NUR ---
new orders noted to change the trach to a shiley #6 DCFS,due to is difficult to suction him,with the catie #4 ,Jose pt's brother aware of the new orders.and he agreed.
[2018-10-30 21:08] VITALS: BP 134/89
[2018-10-30] MEDS: MULTIVIT, IRON, MIN NO. 8, FA TABLET GT SCH (21:18)
[2018-10-31] MEDS: IPRATROPIUM BROMIDE 0.5 MG/2.5 ML NEBU NEB SCH ×4 (01:10→19:40)
[2018-10-31] MEDS: ALBUTEROL SULFATE 2.5 MG/3 ML NEBU NEB SCH ×4 (01:10→19:40)
[2018-10-31] MEDS: SUCRALFATE 1 G/10 ML LIQUID UDC GT SCH ×3 (06:07→22:15)
[2018-10-31] MEDS: LEVOTHYROXINE SODIUM 75 MCG TABLET GT SCH (06:07)
[2018-10-31] MEDS: OMEPRAZOLE 20 MG CAPSULE.DR PO SCH ×2 (06:07→22:15)
--- NOTE | 2018-10-31 07:00 | NUR ---
Patient is awake , still difficult to suction, HOB elevated, no respiratory distress noted,kept clean and comfortable.
--- NOTE | 2018-10-31 08:05 | NUR ---
NEW ORDER CARRIED OUT TO CHANGE TRACH SHILEY 4 TO SHILEY 6DCFS. PERFORMED TO CHANGED TRACH WITH SHILEY 6 DCFS, WITH CHARGE NURSE ALISSA ASSISTING. UNABLE TO INSERT SHILEY [address] IN DUE TO RESTRICTIONS. REINSERT SHILEY 4 WITHOUT RESTRICTIONS NOTED.
[2018-10-31] MEDS: ACIDOPHILUS/BULGARICUS CHEW TAB GT SCH ×2 (08:30→20:49)
[2018-10-31] MEDS: LEVETIRACETAM 500 MG/5 ML LIQUID UDC GT SCH ×2 (08:30→20:49)
[2018-10-31] MEDS: BACLOFEN 20 MG TABLET GT SCH ×4 (08:31→20:49)
[2018-10-31] MEDS: HYDROCORTISONE 10 MG GT SCH ×2 (08:31→20:50)
[2018-10-31] MEDS: HYDROGEN PEROXIDE 3% 118 ML BOTTLE TP SCH ×2 (08:31→20:50)
[2018-10-31] MEDS: TERAZOSIN 1 MG CAPSULE GT SCH (08:31)
[2018-10-31] MEDS: Z GUARD REMEDY PASTE 57 GM TUBE TOP SCH ×2 (08:31→20:50)
[2018-10-31] MEDS: POTASSIUM CHLORIDE 40 MEQ/30 ML LIQUID UDC GT SCH (08:31)
[2018-10-31] MEDS: HYDROCORTISONE 20MG TABLET GT SCH ×2 (08:31→20:50)
[2018-10-31 11:00] VITALS: BP 147/85
--- NOTE | 2018-10-31 11:57 | NUR ---
Seen and examined by Dr Ocasio,aware Rt was unable to change the trach to Shiley # 6,due to restrictions,with new orders noted and carried out.
--- NOTE | 2018-10-31 17:13 | NUR ---
Left message to Dwayne Wong appraisal technician,regarding the consult to evaluate the patient,left message on answering machine.[phone]
[2018-10-31 19:56] VITALS: BP 136/78
[2018-10-31] MEDS: MULTIVIT, IRON, MIN NO. 8, FA TABLET GT SCH (20:50)
[2018-11-01] MEDS: ALBUTEROL SULFATE 2.5 MG/3 ML NEBU NEB SCH ×4 (01:00→19:05)
[2018-11-01] MEDS: IPRATROPIUM BROMIDE 0.5 MG/2.5 ML NEBU NEB SCH ×4 (01:00→19:05)
--- NOTE | 2018-11-01 05:11 | NUR ---
Patient is awake , unable to suction patient through the trach, suctioned through mouth, no bleeding noted at this time, good moth care and trach care done, afebrile, kept clean and comfortable.
[2018-11-01] MEDS: OMEPRAZOLE 20 MG CAPSULE.DR PO SCH ×2 (06:05→22:04)
[2018-11-01] MEDS: SUCRALFATE 1 G/10 ML LIQUID UDC GT SCH ×3 (06:05→22:04)
[2018-11-01] MEDS: LEVOTHYROXINE SODIUM 75 MCG TABLET GT SCH (06:05)
[2018-11-01] MEDS: ACIDOPHILUS/BULGARICUS CHEW TAB GT SCH ×2 (08:30→20:29)
[2018-11-01] MEDS: LEVETIRACETAM 500 MG/5 ML LIQUID UDC GT SCH ×2 (08:31→20:29)
[2018-11-01] MEDS: HYDROCORTISONE 10 MG GT SCH ×2 (08:31→20:31)
[2018-11-01] MEDS: BACLOFEN 20 MG TABLET GT SCH ×4 (08:31→20:31)
[2018-11-01] MEDS: POTASSIUM CHLORIDE 40 MEQ/30 ML LIQUID UDC GT SCH (08:31)
[2018-11-01] MEDS: Z GUARD REMEDY PASTE 57 GM TUBE TOP SCH ×2 (08:31→20:32)
[2018-11-01] MEDS: HYDROCORTISONE 20MG TABLET GT SCH ×2 (08:31→20:31)
[2018-11-01] MEDS: HYDROGEN PEROXIDE 3% 118 ML BOTTLE TP SCH ×2 (08:31→20:32)
[2018-11-01] MEDS: TERAZOSIN 1 MG CAPSULE GT SCH (08:31)
[2018-11-01 10:22] VITALS: BP 143/78
--- NOTE | 2018-11-01 13:29 | NUR ---
SEEN BY RADHA DEUTSCH.
--- NOTE | 2018-11-01 15:00 | NUR ---
SEEN BY GEE WHITLEY N.P. AND WITH NNO.
--- NOTE | 2018-11-01 15:24 | NUR ---
DR.ATIYAZ ALBRIGHT(THORACIC SURGEON) WAS CALLED TO F/U CONSULTATION TO CHANGE TRACH TO A BIGGER SIZE (PER GEOVANI RUIZ SKIDWAY MANBATTER DEPOSITOR)
[2018-11-01 20:22] VITALS: BP 114/72
[2018-11-01] MEDS: MULTIVIT, IRON, MIN NO. 8, FA TABLET GT SCH (20:31)
[2018-11-01] MEDS: ACETAMINOPHEN 650 MG/20 ML UDC- SA PATIENTS-PAIN ONLY GT PRN (21:00)
[2018-11-02] MEDS: ALBUTEROL SULFATE 2.5 MG/3 ML NEBU NEB SCH ×4 (01:10→19:06)
[2018-11-02] MEDS: IPRATROPIUM BROMIDE 0.5 MG/2.5 ML NEBU NEB SCH ×4 (01:10→19:06)
[2018-11-02] MEDS: VITAL AF 1.2 1,000 ML LIQUID GT PRN (04:21)
[2018-11-02] MEDS: LEVOTHYROXINE SODIUM 75 MCG TABLET GT SCH (05:43)
[2018-11-02] MEDS: OMEPRAZOLE 20 MG CAPSULE.DR PO SCH ×2 (05:43→21:19)
[2018-11-02] MEDS: SUCRALFATE 1 G/10 ML LIQUID UDC GT SCH ×3 (05:43→21:19)
--- NOTE | 2018-11-02 06:01 | NUR ---
Patient is awake, still unable to suction through trach, suctioned through mouth and obtained white thick secretions. no respiratory distress noted, still awaiting for ENT eval to replace trach tube, 02 sat 98%, kept clean and comfortable, will continue monitor.
[2018-11-02 06:05] VITALS: BP 144/74
[2018-11-02 08:04] VITALS: BP 151/88
[2018-11-02] MEDS: ACIDOPHILUS/BULGARICUS CHEW TAB GT SCH ×2 (08:24→21:17)
[2018-11-02] MEDS: LEVETIRACETAM 500 MG/5 ML LIQUID UDC GT SCH ×2 (08:25→21:17)
[2018-11-02] MEDS: TERAZOSIN 1 MG CAPSULE GT SCH (08:25)
[2018-11-02] MEDS: HYDROCORTISONE 20MG TABLET GT SCH ×2 (08:26→21:17)
[2018-11-02] MEDS: HYDROGEN PEROXIDE 3% 118 ML BOTTLE TP SCH ×2 (08:26→21:18)
[2018-11-02] MEDS: Z GUARD REMEDY PASTE 57 GM TUBE TOP SCH ×2 (08:26→21:18)
[2018-11-02] MEDS: POTASSIUM CHLORIDE 40 MEQ/30 ML LIQUID UDC GT SCH (08:26)
[2018-11-02] MEDS: HYDROCORTISONE 10 MG GT SCH ×2 (08:26→21:17)
[2018-11-02] MEDS: BACLOFEN 20 MG TABLET GT SCH ×4 (08:26→21:17)
--- NOTE | 2018-11-02 11:51 | NUR ---
DR. ANTONY ALBRIGHT WAS CALLED AND MESSAGE LEFT AGAIN RE: ENT CONSULT TO CHANGE TRACH SIZE TO A BIGGER SIZE ON PT.
--- NOTE | 2018-11-02 16:56 | NUR ---
DR ANTONY ALBRIGHT (THORACIC SURGEON)CAME AND EXAMINED PT. AND TRIED TO PLACE A BIGGER TRACH SIZE # 6 AND WAS UNABLE D/T RESISTANCE AND ENDED UP PLACING PREVIOUS SIZE # 4 AND PT. REMAINS WITH NO DISTRESS AT THIS TIME,NO S/S/ OF RESPIRATORY DISTRESS.DR HARDY STATED THAT HE WILL TALK TO INSTEAD AND PET GROOMER AWARE THAT DR. DIEHL IS REQUESTING SPECIFICALLY ENT.
[2018-11-02 20:43] VITALS: BP 136/80
[2018-11-02] MEDS: MULTIVIT, IRON, MIN NO. 8, FA TABLET GT SCH (21:18)
[2018-11-03] MEDS: IPRATROPIUM BROMIDE 0.5 MG/2.5 ML NEBU NEB SCH ×4 (01:10→19:18)
[2018-11-03] MEDS: ALBUTEROL SULFATE 2.5 MG/3 ML NEBU NEB SCH ×4 (01:10→19:18)
[2018-11-03] MEDS: VITAL AF 1.2 1,000 ML LIQUID GT PRN (01:15)
[2018-11-03] MEDS: LEVOTHYROXINE SODIUM 75 MCG TABLET GT SCH (06:05)
[2018-11-03] MEDS: SUCRALFATE 1 G/10 ML LIQUID UDC GT SCH ×3 (06:05→22:01)
[2018-11-03] MEDS: OMEPRAZOLE 20 MG CAPSULE.DR PO SCH ×2 (06:05→22:01)
[2018-11-03 08:05] VITALS: BP 145/89
[2018-11-03] MEDS: ACIDOPHILUS/BULGARICUS CHEW TAB GT SCH ×2 (08:09→20:31)
[2018-11-03] MEDS: TERAZOSIN 1 MG CAPSULE GT SCH (08:10)
[2018-11-03] MEDS: POTASSIUM CHLORIDE 40 MEQ/30 ML LIQUID UDC GT SCH (08:11)
[2018-11-03] MEDS: LEVETIRACETAM 500 MG/5 ML LIQUID UDC GT SCH ×2 (08:11→20:31)
[2018-11-03] MEDS: HYDROCORTISONE 10 MG GT SCH ×2 (08:11→20:31)
[2018-11-03] MEDS: BACLOFEN 20 MG TABLET GT SCH ×4 (08:11→20:31)
[2018-11-03] MEDS: HYDROCORTISONE 20MG TABLET GT SCH ×2 (08:11→20:31)
[2018-11-03] MEDS: HYDROGEN PEROXIDE 3% 118 ML BOTTLE TP SCH ×2 (08:12→20:32)
[2018-11-03] MEDS: ACETAMINOPHEN 650 MG/20 ML UDC- SA PATIENTS-PAIN ONLY GT PRN (08:12)
[2018-11-03] MEDS: Z GUARD REMEDY PASTE 57 GM TUBE TOP SCH ×2 (08:12→20:31)
[2018-11-03] MEDS: MULTIVIT, IRON, MIN NO. 8, FA TABLET GT SCH (20:31)
[2018-11-03 20:46] VITALS: BP 136/83
[2018-11-04] MEDS: IPRATROPIUM BROMIDE 0.5 MG/2.5 ML NEBU NEB SCH ×4 (01:08→19:40)
[2018-11-04] MEDS: ALBUTEROL SULFATE 2.5 MG/3 ML NEBU NEB SCH ×4 (01:08→19:40)
[2018-11-04] MEDS: SUCRALFATE 1 G/10 ML LIQUID UDC GT SCH ×3 (05:08→22:19)
[2018-11-04] MEDS: OMEPRAZOLE 20 MG CAPSULE.DR PO SCH ×2 (05:08→22:19)
[2018-11-04] MEDS: LEVOTHYROXINE SODIUM 75 MCG TABLET GT SCH (05:41)
[2018-11-04] MEDS: ACETAMINOPHEN 650 MG/20 ML UDC- SA PATIENTS-PAIN ONLY GT PRN (06:28)
[2018-11-04 08:03] VITALS: BP 150/85
[2018-11-04] MEDS: ACIDOPHILUS/BULGARICUS CHEW TAB GT SCH ×2 (09:21→20:37)
[2018-11-04] MEDS: Z GUARD REMEDY PASTE 57 GM TUBE TOP SCH ×2 (09:22→20:37)
[2018-11-04] MEDS: HYDROCORTISONE 10 MG GT SCH ×2 (09:22→20:37)
[2018-11-04] MEDS: BACLOFEN 20 MG TABLET GT SCH ×4 (09:22→20:37)
[2018-11-04] MEDS: HYDROCORTISONE 20MG TABLET GT SCH ×2 (09:22→20:37)
[2018-11-04] MEDS: HYDROGEN PEROXIDE 3% 118 ML BOTTLE TP SCH ×2 (09:22→20:38)
[2018-11-04] MEDS: POTASSIUM CHLORIDE 40 MEQ/30 ML LIQUID UDC GT SCH (09:22)
[2018-11-04] MEDS: LEVETIRACETAM 500 MG/5 ML LIQUID UDC GT SCH ×2 (09:22→20:37)
[2018-11-04] MEDS: TERAZOSIN 1 MG CAPSULE GT SCH (09:22)
[2018-11-04] MEDS: VITAL AF 1.2 1,000 ML LIQUID GT PRN (16:41)
[2018-11-04 20:10] VITALS: BP 144/80
[2018-11-04] MEDS: MULTIVIT, IRON, MIN NO. 8, FA TABLET GT SCH (20:37)
[2018-11-05] MEDS: IPRATROPIUM BROMIDE 0.5 MG/2.5 ML NEBU NEB SCH ×4 (01:06→19:18)
[2018-11-05] MEDS: ALBUTEROL SULFATE 2.5 MG/3 ML NEBU NEB SCH ×4 (01:06→19:18)
[2018-11-05] MEDS: SUCRALFATE 1 G/10 ML LIQUID UDC GT SCH ×3 (05:09→21:27)
[2018-11-05] MEDS: OMEPRAZOLE 20 MG CAPSULE.DR PO SCH ×2 (05:09→21:27)
[2018-11-05] MEDS: LEVOTHYROXINE SODIUM 75 MCG TABLET GT SCH (06:21)
[2018-11-05 08:04] VITALS: BP 153/86
[2018-11-05] MEDS: ACIDOPHILUS/BULGARICUS CHEW TAB GT SCH ×2 (09:50→20:44)
[2018-11-05] MEDS: TERAZOSIN 1 MG CAPSULE GT SCH (09:53)
[2018-11-05] MEDS: LEVETIRACETAM 500 MG/5 ML LIQUID UDC GT SCH ×2 (09:53→20:44)
[2018-11-05] MEDS: Z GUARD REMEDY PASTE 57 GM TUBE TOP SCH ×2 (09:54→20:44)
[2018-11-05] MEDS: HYDROCORTISONE 10 MG GT SCH ×2 (09:54→20:44)
[2018-11-05] MEDS: BACLOFEN 20 MG TABLET GT SCH ×4 (09:54→20:44)
[2018-11-05] MEDS: POTASSIUM CHLORIDE 40 MEQ/30 ML LIQUID UDC GT SCH (09:54)
[2018-11-05] MEDS: HYDROCORTISONE 20MG TABLET GT SCH ×2 (09:54→20:44)
[2018-11-05] MEDS: HYDROGEN PEROXIDE 3% 118 ML BOTTLE TP SCH ×2 (09:55→20:44)
[2018-11-05] MEDS: VITAL AF 1.2 1,000 ML LIQUID GT PRN (13:21)
--- NOTE | 2018-11-05 15:10 | NUR ---
SEEN BY RADHA DEUTSCH.
--- NOTE | 2018-11-05 15:18 | NUR ---
SEEN BY GEE Serna) AND WITH JOANNAO.
[2018-11-05 20:38] VITALS: BP 117/70
[2018-11-05] MEDS: MULTIVIT, IRON, MIN NO. 8, FA TABLET GT SCH (20:44)
[2018-11-06] MEDS: IPRATROPIUM BROMIDE 0.5 MG/2.5 ML NEBU NEB SCH ×4 (01:08→19:40)
[2018-11-06] MEDS: ALBUTEROL SULFATE 2.5 MG/3 ML NEBU NEB SCH ×4 (01:08→19:40)
[2018-11-06] MEDS: VITAL AF 1.2 1,000 ML LIQUID GT PRN (05:12)
[2018-11-06] MEDS: OMEPRAZOLE 20 MG CAPSULE.DR PO SCH ×2 (05:12→21:09)
[2018-11-06] MEDS: SUCRALFATE 1 G/10 ML LIQUID UDC GT SCH ×3 (05:12→21:08)
[2018-11-06] MEDS: LEVOTHYROXINE SODIUM 75 MCG TABLET GT SCH (06:28)
[2018-11-06 08:05] VITALS: BP 150/82
[2018-11-06] MEDS: ACIDOPHILUS/BULGARICUS CHEW TAB GT SCH ×2 (08:52→21:05)
[2018-11-06] MEDS: TERAZOSIN 1 MG CAPSULE GT SCH (08:52)
[2018-11-06] MEDS: BACLOFEN 20 MG TABLET GT SCH ×4 (08:52→21:07)
[2018-11-06] MEDS: POTASSIUM CHLORIDE 40 MEQ/30 ML LIQUID UDC GT SCH (08:52)
[2018-11-06] MEDS: HYDROCORTISONE 20MG TABLET GT SCH ×2 (08:52→21:08)
[2018-11-06] MEDS: HYDROCORTISONE 10 MG GT SCH ×2 (08:52→21:08)
[2018-11-06] MEDS: LEVETIRACETAM 500 MG/5 ML LIQUID UDC GT SCH ×2 (08:52→21:07)
[2018-11-06] MEDS: HYDROGEN PEROXIDE 3% 118 ML BOTTLE TP SCH ×2 (09:15→21:08)
[2018-11-06] MEDS: Z GUARD REMEDY PASTE 57 GM TUBE TOP SCH ×2 (09:15→21:08)
--- NOTE | 2018-11-06 19:41 | NUR ---
SEEN BY DR. FAZAL DEUTSCH.
[2018-11-06 20:24] VITALS: BP 107/77
[2018-11-06] MEDS: MULTIVIT, IRON, MIN NO. 8, FA TABLET GT SCH (21:08)
[2018-11-07] MEDS: IPRATROPIUM BROMIDE 0.5 MG/2.5 ML NEBU NEB SCH ×4 (00:55→19:21)
[2018-11-07] MEDS: ALBUTEROL SULFATE 2.5 MG/3 ML NEBU NEB SCH ×4 (00:55→19:21)
[2018-11-07] MEDS: SUCRALFATE 1 G/10 ML LIQUID UDC GT SCH ×3 (05:48→21:10)
[2018-11-07] MEDS: LEVOTHYROXINE SODIUM 75 MCG TABLET GT SCH (05:48)
[2018-11-07] MEDS: OMEPRAZOLE 20 MG CAPSULE.DR PO SCH ×2 (05:48→21:12)
[2018-11-07 08:06] VITALS: BP 130/71
[2018-11-07] MEDS: TERAZOSIN 1 MG CAPSULE GT SCH (08:15)
[2018-11-07] MEDS: ACIDOPHILUS/BULGARICUS CHEW TAB GT SCH ×2 (08:15→21:10)
[2018-11-07] MEDS: LEVETIRACETAM 500 MG/5 ML LIQUID UDC GT SCH ×2 (08:16→21:09)
[2018-11-07] MEDS: BACLOFEN 20 MG TABLET GT SCH ×4 (08:16→21:10)
[2018-11-07] MEDS: HYDROCORTISONE 10 MG GT SCH ×2 (08:16→21:10)
[2018-11-07] MEDS: HYDROCORTISONE 20MG TABLET GT SCH ×2 (08:16→21:10)
[2018-11-07] MEDS: POTASSIUM CHLORIDE 40 MEQ/30 ML LIQUID UDC GT SCH (08:17)
[2018-11-07] MEDS: Z GUARD REMEDY PASTE 57 GM TUBE TOP SCH ×2 (08:21→21:10)
[2018-11-07] MEDS: HYDROGEN PEROXIDE 3% 118 ML BOTTLE TP SCH ×2 (08:22→21:10)
[2018-11-07 19:52] VITALS: BP 120/80
[2018-11-07] MEDS: MULTIVIT, IRON, MIN NO. 8, FA TABLET GT SCH (21:10)
[2018-11-08] MEDS: ALBUTEROL SULFATE 2.5 MG/3 ML NEBU NEB SCH ×4 (01:10→19:10)
[2018-11-08] MEDS: IPRATROPIUM BROMIDE 0.5 MG/2.5 ML NEBU NEB SCH ×4 (01:10→19:10)
[2018-11-08] MEDS: SUCRALFATE 1 G/10 ML LIQUID UDC GT SCH ×3 (05:13→21:08)
[2018-11-08] MEDS: OMEPRAZOLE 20 MG CAPSULE.DR PO SCH ×2 (05:13→21:08)
[2018-11-08] MEDS: LEVOTHYROXINE SODIUM 75 MCG TABLET GT SCH (06:07)
[2018-11-08 08:05] VITALS: BP 157/97
[2018-11-08] MEDS: TERAZOSIN 1 MG CAPSULE GT SCH (08:10)
[2018-11-08] MEDS: ACIDOPHILUS/BULGARICUS CHEW TAB GT SCH ×2 (08:10→21:07)
[2018-11-08] MEDS: LEVETIRACETAM 500 MG/5 ML LIQUID UDC GT SCH ×2 (08:12→21:07)
[2018-11-08] MEDS: BACLOFEN 20 MG TABLET GT SCH ×4 (08:13→21:07)
[2018-11-08] MEDS: HYDROCORTISONE 20MG TABLET GT SCH ×2 (08:13→21:08)
[2018-11-08] MEDS: HYDROCORTISONE 10 MG GT SCH ×2 (08:13→21:08)
[2018-11-08] MEDS: POTASSIUM CHLORIDE 40 MEQ/30 ML LIQUID UDC GT SCH (08:13)
[2018-11-08] MEDS: HYDROGEN PEROXIDE 3% 118 ML BOTTLE TP SCH ×2 (08:14→21:08)
[2018-11-08] MEDS: Z GUARD REMEDY PASTE 57 GM TUBE TOP SCH ×2 (08:14→21:08)
--- NOTE | 2018-11-08 11:55 | NUR ---
BRIAN spoke with patient's brother Jose [phone] and informed him that the next IDT meeting is scheduled for 11/16/18 at 11am. Jose asked to be on speaker phone during the meeting, and BRIAN agreed, stating that BRIAN would call him during the meeting, within the 11-12 o'clock hour. BRIAN then asked Jose if he had received the packet that BRIAN had mailed him earlier this month, which included the annual admission paperwork for the patient. Jose acknowledged receiving it about a week and a half ago, and stated that he will review and sign them, after which he will return them to this SW. BRIAN thanked Jose. SW to follow-up if the papers are not received.
[2018-11-08 20:34] VITALS: BP 116/71
[2018-11-08] MEDS: MULTIVIT, IRON, MIN NO. 8, FA TABLET GT SCH (21:08)
[2018-11-09] MEDS: ALBUTEROL SULFATE 2.5 MG/3 ML NEBU NEB SCH ×4 (01:12→19:08)
[2018-11-09] MEDS: IPRATROPIUM BROMIDE 0.5 MG/2.5 ML NEBU NEB SCH ×4 (01:12→19:08)
[2018-11-09] MEDS: VITAL AF 1.2 1,000 ML LIQUID GT PRN (01:12)
[2018-11-09] MEDS: SUCRALFATE 1 G/10 ML LIQUID UDC GT SCH ×3 (05:12→21:07)
[2018-11-09] MEDS: OMEPRAZOLE 20 MG CAPSULE.DR PO SCH ×2 (05:30→21:07)
[2018-11-09] MEDS: LEVOTHYROXINE SODIUM 75 MCG TABLET GT SCH (05:30)
[2018-11-09] MEDS: TERAZOSIN 1 MG CAPSULE GT SCH (08:40)
[2018-11-09] MEDS: ACIDOPHILUS/BULGARICUS CHEW TAB GT SCH ×2 (08:40→21:05)
[2018-11-09] MEDS: LEVETIRACETAM 500 MG/5 ML LIQUID UDC GT SCH ×2 (08:40→21:05)
[2018-11-09] MEDS: BACLOFEN 20 MG TABLET GT SCH ×4 (08:40→21:05)
[2018-11-09] MEDS: HYDROGEN PEROXIDE 3% 118 ML BOTTLE TP SCH ×2 (08:41→21:07)
[2018-11-09] MEDS: HYDROCORTISONE 20MG TABLET GT SCH ×2 (08:41→21:06)
[2018-11-09] MEDS: HYDROCORTISONE 10 MG GT SCH ×2 (08:41→21:06)
[2018-11-09] MEDS: Z GUARD REMEDY PASTE 57 GM TUBE TOP SCH ×2 (08:41→21:07)
[2018-11-09] MEDS: POTASSIUM CHLORIDE 40 MEQ/30 ML LIQUID UDC GT SCH (08:41)
[2018-11-09 09:15] VITALS: BP 150/56
[2018-11-09] MEDS: MULTIVIT, IRON, MIN NO. 8, FA TABLET GT SCH (21:06)
[2018-11-09 22:59] VITALS: BP 120/72
[2018-11-10] MEDS: IPRATROPIUM BROMIDE 0.5 MG/2.5 ML NEBU NEB SCH ×4 (01:08→19:41)
[2018-11-10] MEDS: ALBUTEROL SULFATE 2.5 MG/3 ML NEBU NEB SCH ×4 (01:08→19:42)
[2018-11-10] MEDS: OMEPRAZOLE 20 MG CAPSULE.DR PO SCH ×2 (05:36→22:00)
[2018-11-10] MEDS: LEVOTHYROXINE SODIUM 75 MCG TABLET GT SCH (05:36)
[2018-11-10] MEDS: SUCRALFATE 1 G/10 ML LIQUID UDC GT SCH ×3 (05:36→22:00)
[2018-11-10] MEDS: ACIDOPHILUS/BULGARICUS CHEW TAB GT SCH (08:20)
[2018-11-10] MEDS: LEVETIRACETAM 500 MG/5 ML LIQUID UDC GT SCH ×2 (08:21→21:00)
[2018-11-10] MEDS: TERAZOSIN 1 MG CAPSULE GT SCH (08:21)
[2018-11-10] MEDS: BACLOFEN 20 MG TABLET GT SCH ×4 (08:22→21:00)
[2018-11-10] MEDS: HYDROCORTISONE 20MG TABLET GT SCH ×2 (08:22→21:00)
[2018-11-10] MEDS: HYDROCORTISONE 10 MG GT SCH ×2 (08:22→21:00)
[2018-11-10] MEDS: POTASSIUM CHLORIDE 40 MEQ/30 ML LIQUID UDC GT SCH (08:23)
[2018-11-10] MEDS: HYDROGEN PEROXIDE 3% 118 ML BOTTLE TP SCH ×2 (08:23→21:00)
[2018-11-10] MEDS: Z GUARD REMEDY PASTE 57 GM TUBE TOP SCH ×2 (08:23→21:00)
[2018-11-10 11:14] VITALS: BP 135/86
[2018-11-10] MEDS: VITAL AF 1.2 1,000 ML LIQUID GT PRN (12:43)
--- NOTE | 2018-11-10 16:00 | NUR ---
Trach pulled out accidentally,reinserted trach # 6 uncuffed,procedure tolerated well,slight bleeding noted.
[2018-11-10 20:09] VITALS: BP 141/84
[2018-11-11] MEDS: ACIDOPHILUS/BULGARICUS CHEW TAB GT SCH ×3 (00:09→21:35)
[2018-11-11] MEDS: MULTIVIT, IRON, MIN NO. 8, FA TABLET GT SCH ×2 (00:20→21:35)
[2018-11-11] MEDS: ALBUTEROL SULFATE 2.5 MG/3 ML NEBU NEB SCH ×4 (01:30→19:41)
[2018-11-11] MEDS: IPRATROPIUM BROMIDE 0.5 MG/2.5 ML NEBU NEB SCH ×4 (01:30→19:41)
[2018-11-11] MEDS: SUCRALFATE 1 G/10 ML LIQUID UDC GT SCH ×3 (05:11→21:35)
[2018-11-11] MEDS: OMEPRAZOLE 20 MG CAPSULE.DR PO SCH ×2 (05:37→21:35)
[2018-11-11] MEDS: LEVOTHYROXINE SODIUM 75 MCG TABLET GT SCH (05:38)
[2018-11-11 08:04] VITALS: BP 165/86
[2018-11-11] MEDS: LEVETIRACETAM 500 MG/5 ML LIQUID UDC GT SCH ×2 (08:45→21:35)
[2018-11-11] MEDS: TERAZOSIN 1 MG CAPSULE GT SCH (08:45)
[2018-11-11] MEDS: Z GUARD REMEDY PASTE 57 GM TUBE TOP SCH ×2 (08:47→21:35)
[2018-11-11] MEDS: HYDROCORTISONE 10 MG GT SCH ×2 (08:47→21:35)
[2018-11-11] MEDS: BACLOFEN 20 MG TABLET GT SCH ×4 (08:47→21:35)
[2018-11-11] MEDS: POTASSIUM CHLORIDE 40 MEQ/30 ML LIQUID UDC GT SCH (08:47)
[2018-11-11] MEDS: HYDROCORTISONE 20MG TABLET GT SCH ×2 (08:47→21:35)
[2018-11-11] MEDS: HYDROGEN PEROXIDE 3% 118 ML BOTTLE TP SCH ×2 (08:47→21:35)
[2018-11-11] MEDS: VITAL AF 1.2 1,000 ML LIQUID GT PRN (17:28)
[2018-11-11 20:54] VITALS: BP 134/82
[2018-11-11 20:55] VITALS: BP 108/63
[2018-11-12] MEDS: ALBUTEROL SULFATE 2.5 MG/3 ML NEBU NEB SCH ×4 (01:18→19:42)
[2018-11-12] MEDS: IPRATROPIUM BROMIDE 0.5 MG/2.5 ML NEBU NEB SCH ×4 (01:18→19:42)
[2018-11-12] MEDS: LEVOTHYROXINE SODIUM 75 MCG TABLET GT SCH (06:25)
[2018-11-12] MEDS: SUCRALFATE 1 G/10 ML LIQUID UDC GT SCH ×3 (06:25→22:17)
[2018-11-12] MEDS: OMEPRAZOLE 20 MG CAPSULE.DR PO SCH ×2 (06:25→22:17)
[2018-11-12 08:05] VITALS: BP 118/63
[2018-11-12] MEDS: ACIDOPHILUS/BULGARICUS CHEW TAB GT SCH ×2 (09:05→21:00)
[2018-11-12] MEDS: TERAZOSIN 1 MG CAPSULE GT SCH (09:06)
[2018-11-12] MEDS: LEVETIRACETAM 500 MG/5 ML LIQUID UDC GT SCH ×2 (09:06→21:00)
[2018-11-12] MEDS: HYDROCORTISONE 10 MG GT SCH ×2 (09:06→21:00)
[2018-11-12] MEDS: BACLOFEN 20 MG TABLET GT SCH ×4 (09:06→21:00)
[2018-11-12] MEDS: POTASSIUM CHLORIDE 40 MEQ/30 ML LIQUID UDC GT SCH (09:06)
[2018-11-12] MEDS: HYDROCORTISONE 20MG TABLET GT SCH ×2 (09:06→21:00)
[2018-11-12] MEDS: HYDROGEN PEROXIDE 3% 118 ML BOTTLE TP SCH ×2 (09:07→21:00)
[2018-11-12] MEDS: Z GUARD REMEDY PASTE 57 GM TUBE TOP SCH ×2 (09:07→21:00)
[2018-11-12] MEDS: VITAL AF 1.2 1,000 ML LIQUID GT PRN (13:10)
[2018-11-12 20:49] VITALS: BP 108/74
[2018-11-12] MEDS: MULTIVIT, IRON, MIN NO. 8, FA TABLET GT SCH (21:00)
[2018-11-13] MEDS: IPRATROPIUM BROMIDE 0.5 MG/2.5 ML NEBU NEB SCH ×4 (01:13→19:18)
[2018-11-13] MEDS: ALBUTEROL SULFATE 2.5 MG/3 ML NEBU NEB SCH ×4 (01:13→19:18)
[2018-11-13] MEDS: SUCRALFATE 1 G/10 ML LIQUID UDC GT SCH ×3 (06:28→22:41)
[2018-11-13] MEDS: OMEPRAZOLE 20 MG CAPSULE.DR PO SCH ×2 (06:28→22:41)
[2018-11-13] MEDS: LEVOTHYROXINE SODIUM 75 MCG TABLET GT SCH (06:28)
[2018-11-13] MEDS: VITAL AF 1.2 1,000 ML LIQUID GT PRN (06:39)
[2018-11-13 08:05] VITALS: BP 112/75
[2018-11-13] MEDS: TERAZOSIN 1 MG CAPSULE GT SCH (08:38)
[2018-11-13] MEDS: ACIDOPHILUS/BULGARICUS CHEW TAB GT SCH ×2 (08:38→20:48)
[2018-11-13] MEDS: LEVETIRACETAM 500 MG/5 ML LIQUID UDC GT SCH ×2 (08:38→20:48)
[2018-11-13] MEDS: HYDROCORTISONE 10 MG GT SCH ×2 (08:39→20:48)
[2018-11-13] MEDS: BACLOFEN 20 MG TABLET GT SCH ×4 (08:39→20:48)
[2018-11-13] MEDS: HYDROGEN PEROXIDE 3% 118 ML BOTTLE TP SCH ×2 (08:40→20:48)
[2018-11-13] MEDS: HYDROCORTISONE 20MG TABLET GT SCH ×2 (08:40→20:48)
[2018-11-13] MEDS: Z GUARD REMEDY PASTE 57 GM TUBE TOP SCH ×2 (08:40→20:48)
[2018-11-13] MEDS: POTASSIUM CHLORIDE 40 MEQ/30 ML LIQUID UDC GT SCH (08:40)
[2018-11-13 19:55] VITALS: BP 116/77
[2018-11-13] MEDS: MULTIVIT, IRON, MIN NO. 8, FA TABLET GT SCH (20:48)
[2018-11-14] MEDS: ALBUTEROL SULFATE 2.5 MG/3 ML NEBU NEB SCH ×4 (01:18→19:14)
[2018-11-14] MEDS: IPRATROPIUM BROMIDE 0.5 MG/2.5 ML NEBU NEB SCH ×4 (01:18→19:14)
[2018-11-14] MEDS: VITAL AF 1.2 1,000 ML LIQUID GT PRN (03:54)
[2018-11-14] MEDS: OMEPRAZOLE 20 MG CAPSULE.DR PO SCH ×2 (05:55→22:38)
[2018-11-14] MEDS: SUCRALFATE 1 G/10 ML LIQUID UDC GT SCH ×3 (05:55→22:38)
[2018-11-14] MEDS: LEVOTHYROXINE SODIUM 75 MCG TABLET GT SCH (05:55)
[2018-11-14] MEDS: Z GUARD REMEDY PASTE 57 GM TUBE TOP SCH ×2 (08:39→20:53)
[2018-11-14] MEDS: HYDROGEN PEROXIDE 3% 118 ML BOTTLE TP SCH ×2 (08:39→20:53)
[2018-11-14] MEDS: ACIDOPHILUS/BULGARICUS CHEW TAB GT SCH ×2 (08:39→20:53)
[2018-11-14] MEDS: BACLOFEN 20 MG TABLET GT SCH ×4 (08:39→20:53)
[2018-11-14] MEDS: HYDROCORTISONE 20MG TABLET GT SCH ×2 (08:39→20:53)
[2018-11-14] MEDS: HYDROCORTISONE 10 MG GT SCH ×2 (08:39→20:53)
[2018-11-14] MEDS: TERAZOSIN 1 MG CAPSULE GT SCH (08:39)
[2018-11-14] MEDS: LEVETIRACETAM 500 MG/5 ML LIQUID UDC GT SCH ×2 (08:39→20:53)
[2018-11-14] MEDS: POTASSIUM CHLORIDE 40 MEQ/30 ML LIQUID UDC GT SCH (08:39)
[2018-11-14 09:20] VITALS: BP 138/75
[2018-11-14 20:03] VITALS: BP 125/84
[2018-11-14] MEDS: MULTIVIT, IRON, MIN NO. 8, FA TABLET GT SCH (20:53)
[2018-11-15] MEDS: IPRATROPIUM BROMIDE 0.5 MG/2.5 ML NEBU NEB SCH ×4 (00:51→19:01)
[2018-11-15] MEDS: ALBUTEROL SULFATE 2.5 MG/3 ML NEBU NEB SCH ×4 (00:51→19:01)
[2018-11-15] MEDS: VITAL AF 1.2 1,000 ML LIQUID GT PRN ×2 (01:45→20:49)
[2018-11-15] MEDS: OMEPRAZOLE 20 MG CAPSULE.DR PO SCH ×2 (06:38→22:39)
[2018-11-15] MEDS: LEVOTHYROXINE SODIUM 75 MCG TABLET GT SCH (06:38)
[2018-11-15] MEDS: SUCRALFATE 1 G/10 ML LIQUID UDC GT SCH ×3 (06:38→22:39)
[2018-11-15] MEDS: ACIDOPHILUS/BULGARICUS CHEW TAB GT SCH ×2 (08:01→20:42)
[2018-11-15] MEDS: LEVETIRACETAM 500 MG/5 ML LIQUID UDC GT SCH ×2 (08:01→20:42)
[2018-11-15] MEDS: TERAZOSIN 1 MG CAPSULE GT SCH (08:01)
[2018-11-15] MEDS: HYDROCORTISONE 20MG TABLET GT SCH ×2 (08:02→20:42)
[2018-11-15] MEDS: Z GUARD REMEDY PASTE 57 GM TUBE TOP SCH ×2 (08:02→20:43)
[2018-11-15] MEDS: BACLOFEN 20 MG TABLET GT SCH ×4 (08:02→20:42)
[2018-11-15] MEDS: HYDROGEN PEROXIDE 3% 118 ML BOTTLE TP SCH ×2 (08:02→20:43)
[2018-11-15] MEDS: HYDROCORTISONE 10 MG GT SCH ×2 (08:02→20:42)
[2018-11-15] MEDS: POTASSIUM CHLORIDE 40 MEQ/30 ML LIQUID UDC GT SCH (08:02)
[2018-11-15 08:05] VITALS: BP 142/80
[2018-11-15 09:21] LABS: BASOPHILS # (AUTO) 0.1 K/uL (0.0-8.0); BASOPHILS % (AUTO) 1.1 % (0.0-2.0); EOSINOPHILS # (AUTO) 0.5 K/uL (0.0-0.7); EOSINOPHILS % (AUTO) 6.6 % (0.0-7.0); HEMOGLOBIN 11.3 g/dL (12.5-16.3); LYMPHOCYTES # (AUTO) 1.2 K/uL (20.0-40.0); LYMPHOCYTES % (AUTO) 15.4 % (20.5-51.5); MEAN CORPUSCULAR HEMOGLOBIN 26.4 uug (23.8-33.4); MEAN CORPUSCULAR HGB CONC 32 g/dL (32.5-36.3); MEAN CORPUSCULAR VOLUME 81.7 fL (73.0-96.2); MONOCYTES # (AUTO) 0.9 K/uL (2.0-10.0); MONOCYTES % (AUTO) 11.6 % (0.0-11.0); NEUTROPHILS # (AUTO) 5.1 K/uL (1.8-8.9); NEUTROPHILS % (AUTO) 65.3 % (38.5-71.5); PLATELET COUNT (AUTO) 293 K/uL (152-348); RED BLOOD CELL COUNT(AUTO) 4.29 MIL/uL (4.06-5.63); WHITE BLOOD COUNT (AUTO) 7.9 K/uL (3.6-10.2)
[2018-11-15 09:24] LABS: CARBON DIOXIDE 28 mmol/L (21-32); CHLORIDE 103 mmol/L (98-107); CREATININE 0.5 mg/dL (0.6-1.3); GLUCOSE 92 mg/dL (74-106); POTASSIUM 3.8 mmol/L (3.5-5.1); UREA NITROGEN, BLOOD 19 mg/dL (7-18)
[2018-11-15] MEDS: MULTIVIT, IRON, MIN NO. 8, FA TABLET GT SCH (20:42)
[2018-11-15 22:42] VITALS: BP 121/74
[2018-11-16] MEDS: ALBUTEROL SULFATE 2.5 MG/3 ML NEBU NEB SCH ×4 (01:10→20:02)
[2018-11-16] MEDS: IPRATROPIUM BROMIDE 0.5 MG/2.5 ML NEBU NEB SCH ×4 (01:10→20:02)
[2018-11-16] MEDS: SUCRALFATE 1 G/10 ML LIQUID UDC GT SCH ×3 (05:56→21:03)
[2018-11-16] MEDS: LEVOTHYROXINE SODIUM 75 MCG TABLET GT SCH (05:56)
[2018-11-16] MEDS: OMEPRAZOLE 20 MG CAPSULE.DR PO SCH ×2 (05:56→21:03)
[2018-11-16] MEDS: HYDROCORTISONE 10 MG GT SCH ×2 (08:07→21:02)
[2018-11-16] MEDS: HYDROGEN PEROXIDE 3% 118 ML BOTTLE TP SCH ×2 (08:07→21:03)
[2018-11-16] MEDS: TERAZOSIN 1 MG CAPSULE GT SCH (08:07)
[2018-11-16] MEDS: HYDROCORTISONE 20MG TABLET GT SCH ×2 (08:07→21:02)
[2018-11-16] MEDS: ACIDOPHILUS/BULGARICUS CHEW TAB GT SCH ×2 (08:07→21:00)
[2018-11-16] MEDS: POTASSIUM CHLORIDE 40 MEQ/30 ML LIQUID UDC GT SCH (08:07)
[2018-11-16] MEDS: LEVETIRACETAM 500 MG/5 ML LIQUID UDC GT SCH ×2 (08:07→21:00)
[2018-11-16] MEDS: Z GUARD REMEDY PASTE 57 GM TUBE TOP SCH ×2 (08:07→21:03)
[2018-11-16] MEDS: BACLOFEN 20 MG TABLET GT SCH ×4 (08:07→21:02)
[2018-11-16 11:36] VITALS: BP 158/99
--- NOTE | 2018-11-16 15:15 | NUR ---
Pharmacy Update from Todays 11/16/18 IDT Meeting: VS: Temp 98.2 BP 158/99 HR 82 LABS: (from 11/15/18) Wbc 8.7 H/H 11.8/35 Plt 293 Na 138 K 3.8 Cl 103 CO2 28 BUN/SCr 19/0.5 BS 92 Ca 9.0 MEDICATION USE REVIEWED: > Pt not on any anti-psych medications > Pt is one Keppra 1000mg q12h, no report of sz activity, latest calculated CrCl 129 ml/min, renal fxn ok for current dose > Pt is on Synthroid 75 mcg daily, last TSH on 08/13/18 was 0.537 (0.358-3.74) > On K 20meq daily as of 02/21, latest K is 3.8 > PRN MED USAGE: (Oct) Tylenol for pain used x 6 Tylenol for temp used x 0 Imodium x 0 NEW ORDERS NOTED: > NA Pt was reviewed and discussed in depth, with family in attendance by phone. All medication updates and reports given, pt remains stable with no acute changes and no further rx recs at this time. Was noted by team that pt now has larger trach size, making secretion suctioning easier. Will continue follow
--- NOTE | 2018-11-16 15:51 | NUR ---
INTERDISCIPLINARY PLAN OF CARE CONFERENCE was held today. Patient's brother Jose was on speaker phone during the meeting. Dr. Ocasio and the Interdisciplinary Team reviewed the current plan of care in detail. RN reported on patient's medical condition, and the recent changes in his trach size were discussed with patient's brother. Patient's brother expressed understanding the need to change patient's trach. See RN IDT conference notes. PT reviewed with Jose patient's ongoing RNA treatment plan, which Jose expressed being in agreement with. See also all other disciplines IDT notes and physician's progress notes for additional details. Jose expressed not having any questions/concerns at this time, and stated being content with the current plan of care.
[2018-11-16 20:18] VITALS: BP 142/88
[2018-11-16] MEDS: MULTIVIT, IRON, MIN NO. 8, FA TABLET GT SCH (21:03)
[2018-11-17] MEDS: ALBUTEROL SULFATE 2.5 MG/3 ML NEBU NEB SCH ×4 (01:05→19:40)
[2018-11-17] MEDS: IPRATROPIUM BROMIDE 0.5 MG/2.5 ML NEBU NEB SCH ×4 (01:05→19:40)
[2018-11-17] MEDS: SUCRALFATE 1 G/10 ML LIQUID UDC GT SCH ×3 (05:30→22:15)
[2018-11-17] MEDS: OMEPRAZOLE 20 MG CAPSULE.DR PO SCH ×2 (05:30→22:15)
[2018-11-17] MEDS: LEVOTHYROXINE SODIUM 75 MCG TABLET GT SCH (05:30)
[2018-11-17] MEDS: ACIDOPHILUS/BULGARICUS CHEW TAB GT SCH ×2 (08:36→20:31)
[2018-11-17] MEDS: TERAZOSIN 1 MG CAPSULE GT SCH (08:36)
[2018-11-17] MEDS: BACLOFEN 20 MG TABLET GT SCH ×4 (08:37→20:32)
[2018-11-17] MEDS: LEVETIRACETAM 500 MG/5 ML LIQUID UDC GT SCH ×2 (08:37→20:31)
[2018-11-17] MEDS: HYDROCORTISONE 10 MG GT SCH ×2 (08:38→20:32)
[2018-11-17] MEDS: HYDROCORTISONE 20MG TABLET GT SCH ×2 (08:39→20:32)
[2018-11-17] MEDS: Z GUARD REMEDY PASTE 57 GM TUBE TOP SCH ×2 (08:40→20:33)
[2018-11-17] MEDS: POTASSIUM CHLORIDE 40 MEQ/30 ML LIQUID UDC GT SCH (08:40)
[2018-11-17] MEDS: HYDROGEN PEROXIDE 3% 118 ML BOTTLE TP SCH ×2 (08:40→20:33)
[2018-11-17] MEDS: VITAL AF 1.2 1,000 ML LIQUID GT PRN (10:45)
[2018-11-17 14:54] VITALS: BP 112/87
[2018-11-17] MEDS: MULTIVIT, IRON, MIN NO. 8, FA TABLET GT SCH (20:32)
[2018-11-18] MEDS: IPRATROPIUM BROMIDE 0.5 MG/2.5 ML NEBU NEB SCH ×4 (01:21→19:33)
[2018-11-18] MEDS: ALBUTEROL SULFATE 2.5 MG/3 ML NEBU NEB SCH ×4 (01:21→19:33)
[2018-11-18] MEDS: LEVOTHYROXINE SODIUM 75 MCG TABLET GT SCH (05:31)
[2018-11-18] MEDS: SUCRALFATE 1 G/10 ML LIQUID UDC GT SCH ×3 (05:31→22:41)
[2018-11-18] MEDS: OMEPRAZOLE 20 MG CAPSULE.DR PO SCH ×2 (05:31→22:41)
[2018-11-18] MEDS: VITAL AF 1.2 1,000 ML LIQUID GT PRN (05:32)
[2018-11-18 08:00] VITALS: BP 144/87
[2018-11-18] MEDS: TERAZOSIN 1 MG CAPSULE GT SCH (08:45)
[2018-11-18] MEDS: ACIDOPHILUS/BULGARICUS CHEW TAB GT SCH ×2 (08:45→20:53)
[2018-11-18] MEDS: LEVETIRACETAM 500 MG/5 ML LIQUID UDC GT SCH ×2 (08:45→20:53)
[2018-11-18] MEDS: HYDROCORTISONE 10 MG GT SCH ×2 (08:46→20:53)
[2018-11-18] MEDS: BACLOFEN 20 MG TABLET GT SCH ×4 (08:46→20:53)
[2018-11-18] MEDS: POTASSIUM CHLORIDE 40 MEQ/30 ML LIQUID UDC GT SCH (08:46)
[2018-11-18] MEDS: HYDROCORTISONE 20MG TABLET GT SCH ×2 (08:46→20:53)
[2018-11-18] MEDS: Z GUARD REMEDY PASTE 57 GM TUBE TOP SCH ×2 (08:46→20:54)
[2018-11-18] MEDS: HYDROGEN PEROXIDE 3% 118 ML BOTTLE TP SCH ×2 (08:47→20:54)
--- NOTE | 2018-11-18 09:17 | NUR ---
SEEN AND EXAMINED BY DR. DIEHL WITH NEW ORDERS, NOTED AND CARRIED OUT.
[2018-11-18 20:09] VITALS: BP 119/81
[2018-11-18] MEDS: MULTIVIT, IRON, MIN NO. 8, FA TABLET GT SCH (20:54)
[2018-11-19] MEDS: ALBUTEROL SULFATE 2.5 MG/3 ML NEBU NEB SCH ×4 (01:18→19:27)
[2018-11-19] MEDS: IPRATROPIUM BROMIDE 0.5 MG/2.5 ML NEBU NEB SCH ×4 (01:18→19:27)
[2018-11-19] MEDS: VITAL AF 1.2 1,000 ML LIQUID GT PRN ×2 (04:00→22:47)
[2018-11-19] MEDS: SUCRALFATE 1 G/10 ML LIQUID UDC GT SCH ×3 (06:29→22:47)
[2018-11-19] MEDS: OMEPRAZOLE 20 MG CAPSULE.DR PO SCH ×2 (06:29→22:47)
[2018-11-19] MEDS: LEVOTHYROXINE SODIUM 75 MCG TABLET GT SCH (06:33)
[2018-11-19 08:00] VITALS: BP 137/87
[2018-11-19] MEDS: ACIDOPHILUS/BULGARICUS CHEW TAB GT SCH ×2 (08:59→21:06)
[2018-11-19] MEDS: HYDROCORTISONE 10 MG GT SCH ×2 (09:00→21:06)
[2018-11-19] MEDS: BACLOFEN 20 MG TABLET GT SCH ×4 (09:00→21:06)
[2018-11-19] MEDS: HYDROCORTISONE 20MG TABLET GT SCH ×2 (09:00→21:06)
[2018-11-19] MEDS: LEVETIRACETAM 500 MG/5 ML LIQUID UDC GT SCH ×2 (09:00→21:06)
[2018-11-19] MEDS: TERAZOSIN 1 MG CAPSULE GT SCH (09:00)
[2018-11-19] MEDS: POTASSIUM CHLORIDE 40 MEQ/30 ML LIQUID UDC GT SCH (09:00)
[2018-11-19] MEDS: HYDROGEN PEROXIDE 3% 118 ML BOTTLE TP SCH ×2 (09:01→21:06)
[2018-11-19] MEDS: Z GUARD REMEDY PASTE 57 GM TUBE TOP SCH ×2 (09:01→21:06)
--- NOTE | 2018-11-19 13:21 | NUR ---
SEEN BY RADHA DEUTSCH.
--- NOTE | 2018-11-19 15:03 | NUR ---
SEEN BY GEE Serna)JOANNAO.
[2018-11-19 20:11] VITALS: BP 123/80
[2018-11-19] MEDS: MULTIVIT, IRON, MIN NO. 8, FA TABLET GT SCH (21:06)
[2018-11-20] MEDS: ALBUTEROL SULFATE 2.5 MG/3 ML NEBU NEB SCH ×4 (01:43→19:43)
[2018-11-20] MEDS: IPRATROPIUM BROMIDE 0.5 MG/2.5 ML NEBU NEB SCH ×4 (01:43→19:43)
[2018-11-20] MEDS: SUCRALFATE 1 G/10 ML LIQUID UDC GT SCH ×3 (06:00→22:19)
[2018-11-20] MEDS: OMEPRAZOLE 20 MG CAPSULE.DR PO SCH ×2 (06:00→22:19)
[2018-11-20] MEDS: LEVOTHYROXINE SODIUM 75 MCG TABLET GT SCH (06:00)
[2018-11-20 08:00] VITALS: BP 113/77
[2018-11-20] MEDS: ACIDOPHILUS/BULGARICUS CHEW TAB GT SCH ×2 (08:45→21:07)
[2018-11-20] MEDS: BACLOFEN 20 MG TABLET GT SCH ×4 (08:46→21:08)
[2018-11-20] MEDS: HYDROCORTISONE 10 MG GT SCH ×2 (08:46→21:08)
[2018-11-20] MEDS: TERAZOSIN 1 MG CAPSULE GT SCH (08:46)
[2018-11-20] MEDS: LEVETIRACETAM 500 MG/5 ML LIQUID UDC GT SCH ×2 (08:46→21:08)
[2018-11-20] MEDS: HYDROCORTISONE 20MG TABLET GT SCH ×2 (08:46→21:08)
[2018-11-20] MEDS: Z GUARD REMEDY PASTE 57 GM TUBE TOP SCH ×2 (08:48→21:09)
[2018-11-20] MEDS: POTASSIUM CHLORIDE 40 MEQ/30 ML LIQUID UDC GT SCH (08:48)
[2018-11-20] MEDS: HYDROGEN PEROXIDE 3% 118 ML BOTTLE TP SCH ×2 (08:49→21:09)
[2018-11-20 20:19] VITALS: BP 108/70
[2018-11-20] MEDS: MULTIVIT, IRON, MIN NO. 8, FA TABLET GT SCH (21:08)
[2018-11-21] MEDS: ALBUTEROL SULFATE 2.5 MG/3 ML NEBU NEB SCH ×4 (01:14→19:44)
[2018-11-21] MEDS: IPRATROPIUM BROMIDE 0.5 MG/2.5 ML NEBU NEB SCH ×4 (01:14→19:44)
[2018-11-21] MEDS: SUCRALFATE 1 G/10 ML LIQUID UDC GT SCH ×3 (06:39→22:19)
[2018-11-21] MEDS: LEVOTHYROXINE SODIUM 75 MCG TABLET GT SCH (06:39)
[2018-11-21] MEDS: OMEPRAZOLE 20 MG CAPSULE.DR PO SCH ×2 (06:39→22:19)
[2018-11-21 08:00] VITALS: BP 110/62
[2018-11-21] MEDS: Z GUARD REMEDY PASTE 57 GM TUBE TOP SCH ×2 (09:00→20:30)
[2018-11-21] MEDS: LEVETIRACETAM 500 MG/5 ML LIQUID UDC GT SCH ×2 (09:00→20:29)
[2018-11-21] MEDS: HYDROGEN PEROXIDE 3% 118 ML BOTTLE TP SCH ×2 (09:00→20:30)
[2018-11-21] MEDS: TERAZOSIN 1 MG CAPSULE GT SCH (09:00)
[2018-11-21] MEDS: HYDROCORTISONE 10 MG GT SCH ×2 (09:00→20:29)
[2018-11-21] MEDS: ACIDOPHILUS/BULGARICUS CHEW TAB GT SCH ×2 (09:00→20:28)
[2018-11-21] MEDS: HYDROCORTISONE 20MG TABLET GT SCH ×2 (09:00→20:29)
[2018-11-21] MEDS: POTASSIUM CHLORIDE 40 MEQ/30 ML LIQUID UDC GT SCH (09:00)
[2018-11-21] MEDS: BACLOFEN 20 MG TABLET GT SCH ×4 (09:00→20:29)
[2018-11-21] MEDS: VITAL AF 1.2 1,000 ML LIQUID GT PRN (12:36)
[2018-11-21] MEDS: MULTIVIT, IRON, MIN NO. 8, FA TABLET GT SCH (20:30)
[2018-11-21 22:35] VITALS: BP 121/65
[2018-11-22] MEDS: IPRATROPIUM BROMIDE 0.5 MG/2.5 ML NEBU NEB SCH ×4 (01:34→20:18)
[2018-11-22] MEDS: ALBUTEROL SULFATE 2.5 MG/3 ML NEBU NEB SCH ×4 (01:34→20:18)
[2018-11-22] MEDS: OMEPRAZOLE 20 MG CAPSULE.DR PO SCH ×2 (05:50→22:05)
[2018-11-22] MEDS: LEVOTHYROXINE SODIUM 75 MCG TABLET GT SCH (05:50)
[2018-11-22] MEDS: SUCRALFATE 1 G/10 ML LIQUID UDC GT SCH ×3 (05:50→22:05)
[2018-11-22 08:00] VITALS: BP 120/60
[2018-11-22] MEDS: HYDROGEN PEROXIDE 3% 118 ML BOTTLE TP SCH ×2 (08:23→20:45)
[2018-11-22] MEDS: TERAZOSIN 1 MG CAPSULE GT SCH (08:23)
[2018-11-22] MEDS: ACIDOPHILUS/BULGARICUS CHEW TAB GT SCH ×2 (08:23→20:47)
[2018-11-22] MEDS: HYDROCORTISONE 10 MG GT SCH ×2 (08:23→20:45)
[2018-11-22] MEDS: LEVETIRACETAM 500 MG/5 ML LIQUID UDC GT SCH ×2 (08:23→20:44)
[2018-11-22] MEDS: BACLOFEN 20 MG TABLET GT SCH ×4 (08:23→20:45)
[2018-11-22] MEDS: POTASSIUM CHLORIDE 40 MEQ/30 ML LIQUID UDC GT SCH (08:23)
[2018-11-22] MEDS: HYDROCORTISONE 20MG TABLET GT SCH ×2 (08:23→20:45)
[2018-11-22] MEDS: Z GUARD REMEDY PASTE 57 GM TUBE TOP SCH ×2 (08:23→20:45)
[2018-11-22 20:05] VITALS: BP 117/82
[2018-11-22] MEDS: MULTIVIT, IRON, MIN NO. 8, FA TABLET GT SCH (20:45)
[2018-11-23] MEDS: ALBUTEROL SULFATE 2.5 MG/3 ML NEBU NEB SCH ×4 (01:10→20:24)
[2018-11-23] MEDS: IPRATROPIUM BROMIDE 0.5 MG/2.5 ML NEBU NEB SCH ×4 (01:10→20:24)
[2018-11-23] MEDS: VITAL AF 1.2 1,000 ML LIQUID GT PRN ×2 (02:01→19:53)
[2018-11-23] MEDS: ACETAMINOPHEN 650 MG/20 ML UDC- SA PATIENTS-PAIN ONLY GT PRN (02:44)
[2018-11-23] MEDS: OMEPRAZOLE 20 MG CAPSULE.DR PO SCH ×2 (05:01→21:02)
[2018-11-23] MEDS: SUCRALFATE 1 G/10 ML LIQUID UDC GT SCH ×3 (05:01→21:02)
[2018-11-23] MEDS: LEVOTHYROXINE SODIUM 75 MCG TABLET GT SCH (06:03)
[2018-11-23 08:04] VITALS: BP 116/72
[2018-11-23] MEDS: TERAZOSIN 1 MG CAPSULE GT SCH (08:25)
[2018-11-23] MEDS: ACIDOPHILUS/BULGARICUS CHEW TAB GT SCH ×2 (08:25→20:13)
[2018-11-23] MEDS: LEVETIRACETAM 500 MG/5 ML LIQUID UDC GT SCH ×2 (08:25→20:13)
[2018-11-23] MEDS: BACLOFEN 20 MG TABLET GT SCH ×4 (08:26→20:13)
[2018-11-23] MEDS: HYDROCORTISONE 20MG TABLET GT SCH ×2 (08:26→20:13)
[2018-11-23] MEDS: Z GUARD REMEDY PASTE 57 GM TUBE TOP SCH ×2 (08:26→20:14)
[2018-11-23] MEDS: HYDROGEN PEROXIDE 3% 118 ML BOTTLE TP SCH ×2 (08:26→20:14)
[2018-11-23] MEDS: HYDROCORTISONE 10 MG GT SCH ×2 (08:26→20:13)
[2018-11-23] MEDS: POTASSIUM CHLORIDE 40 MEQ/30 ML LIQUID UDC GT SCH (08:26)
[2018-11-23 20:08] VITALS: BP 110/67
[2018-11-23] MEDS: MULTIVIT, IRON, MIN NO. 8, FA TABLET GT SCH (20:13)
[2018-11-24] MEDS: ALBUTEROL SULFATE 2.5 MG/3 ML NEBU NEB SCH ×4 (01:31→19:11)
[2018-11-24] MEDS: IPRATROPIUM BROMIDE 0.5 MG/2.5 ML NEBU NEB SCH ×4 (01:31→19:11)
[2018-11-24] MEDS: OMEPRAZOLE 20 MG CAPSULE.DR PO SCH ×2 (05:53→21:07)
[2018-11-24] MEDS: SUCRALFATE 1 G/10 ML LIQUID UDC GT SCH ×3 (05:53→21:07)
[2018-11-24] MEDS: LEVOTHYROXINE SODIUM 75 MCG TABLET GT SCH (05:53)
[2018-11-24] MEDS: ACIDOPHILUS/BULGARICUS CHEW TAB GT SCH ×2 (09:40→20:39)
[2018-11-24] MEDS: TERAZOSIN 1 MG CAPSULE GT SCH (09:41)
[2018-11-24] MEDS: BACLOFEN 20 MG TABLET GT SCH ×4 (09:41→20:39)
[2018-11-24] MEDS: LEVETIRACETAM 500 MG/5 ML LIQUID UDC GT SCH ×2 (09:41→20:39)
[2018-11-24] MEDS: HYDROCORTISONE 10 MG GT SCH ×2 (09:42→20:39)
[2018-11-24] MEDS: Z GUARD REMEDY PASTE 57 GM TUBE TOP SCH ×2 (09:42→20:40)
[2018-11-24] MEDS: HYDROGEN PEROXIDE 3% 118 ML BOTTLE TP SCH ×2 (09:42→20:40)
[2018-11-24] MEDS: POTASSIUM CHLORIDE 40 MEQ/30 ML LIQUID UDC GT SCH (09:42)
[2018-11-24] MEDS: HYDROCORTISONE 20MG TABLET GT SCH ×2 (09:42→20:39)
[2018-11-24 11:25] VITALS: BP 154/89
[2018-11-24] MEDS: VITAL AF 1.2 1,000 ML LIQUID GT PRN (18:02)
[2018-11-24 19:55] VITALS: BP 150/82
[2018-11-24] MEDS: MULTIVIT, IRON, MIN NO. 8, FA TABLET GT SCH (20:40)
[2018-11-25] MEDS: ALBUTEROL SULFATE 2.5 MG/3 ML NEBU NEB SCH ×4 (01:22→19:40)
[2018-11-25] MEDS: IPRATROPIUM BROMIDE 0.5 MG/2.5 ML NEBU NEB SCH ×4 (01:22→19:40)
[2018-11-25] MEDS: LEVOTHYROXINE SODIUM 75 MCG TABLET GT SCH (06:21)
[2018-11-25] MEDS: OMEPRAZOLE 20 MG CAPSULE.DR PO SCH ×2 (06:21→21:46)
[2018-11-25] MEDS: SUCRALFATE 1 G/10 ML LIQUID UDC GT SCH ×3 (06:21→21:46)
[2018-11-25 08:00] VITALS: BP 129/84
[2018-11-25] MEDS: ACIDOPHILUS/BULGARICUS CHEW TAB GT SCH ×2 (09:20→21:45)
[2018-11-25] MEDS: HYDROCORTISONE 20MG TABLET GT SCH ×2 (09:21→21:46)
[2018-11-25] MEDS: HYDROCORTISONE 10 MG GT SCH ×2 (09:21→21:46)
[2018-11-25] MEDS: LEVETIRACETAM 500 MG/5 ML LIQUID UDC GT SCH ×2 (09:21→21:45)
[2018-11-25] MEDS: TERAZOSIN 1 MG CAPSULE GT SCH (09:21)
[2018-11-25] MEDS: BACLOFEN 20 MG TABLET GT SCH ×4 (09:21→21:45)
[2018-11-25] MEDS: HYDROGEN PEROXIDE 3% 118 ML BOTTLE TP SCH ×2 (09:22→21:46)
[2018-11-25] MEDS: Z GUARD REMEDY PASTE 57 GM TUBE TOP SCH ×2 (09:22→21:46)
[2018-11-25] MEDS: POTASSIUM CHLORIDE 40 MEQ/30 ML LIQUID UDC GT SCH (09:22)
[2018-11-25] MEDS: VITAL AF 1.2 1,000 ML LIQUID GT PRN (17:06)
[2018-11-25 20:04] VITALS: BP 124/81
[2018-11-25] MEDS: MULTIVIT, IRON, MIN NO. 8, FA TABLET GT SCH (21:46)
[2018-11-26] MEDS: IPRATROPIUM BROMIDE 0.5 MG/2.5 ML NEBU NEB SCH ×4 (01:28→19:06)
[2018-11-26] MEDS: ALBUTEROL SULFATE 2.5 MG/3 ML NEBU NEB SCH ×4 (01:28→19:06)
[2018-11-26] MEDS: OMEPRAZOLE 20 MG CAPSULE.DR PO SCH ×2 (06:44→21:36)
[2018-11-26] MEDS: SUCRALFATE 1 G/10 ML LIQUID UDC GT SCH ×3 (06:44→21:36)
[2018-11-26] MEDS: LEVOTHYROXINE SODIUM 75 MCG TABLET GT SCH (06:44)
[2018-11-26] MEDS: TERAZOSIN 1 MG CAPSULE GT SCH (08:24)
[2018-11-26] MEDS: BACLOFEN 20 MG TABLET GT SCH ×4 (08:24→21:30)
[2018-11-26] MEDS: LEVETIRACETAM 500 MG/5 ML LIQUID UDC GT SCH ×2 (08:24→21:30)
[2018-11-26] MEDS: ACIDOPHILUS/BULGARICUS CHEW TAB GT SCH ×2 (08:24→21:30)
[2018-11-26] MEDS: POTASSIUM CHLORIDE 40 MEQ/30 ML LIQUID UDC GT SCH (08:24)
[2018-11-26] MEDS: HYDROGEN PEROXIDE 3% 118 ML BOTTLE TP SCH ×2 (08:24→21:35)
[2018-11-26] MEDS: HYDROCORTISONE 10 MG GT SCH ×2 (08:24→21:30)
[2018-11-26] MEDS: Z GUARD REMEDY PASTE 57 GM TUBE TOP SCH ×2 (08:24→21:35)
[2018-11-26] MEDS: HYDROCORTISONE 20MG TABLET GT SCH ×2 (08:24→21:34)
[2018-11-26] MEDS: VITAL AF 1.2 1,000 ML LIQUID GT PRN (12:09)
[2018-11-26 18:17] VITALS: BP 115/79
[2018-11-26 20:18] VITALS: BP 148/88
[2018-11-26] MEDS: MULTIVIT, IRON, MIN NO. 8, FA TABLET GT SCH (21:35)
[2018-11-27] MEDS: VITAL AF 1.2 1,000 ML LIQUID GT PRN (01:00)
[2018-11-27] MEDS: ALBUTEROL SULFATE 2.5 MG/3 ML NEBU NEB SCH ×4 (01:31→19:28)
[2018-11-27] MEDS: IPRATROPIUM BROMIDE 0.5 MG/2.5 ML NEBU NEB SCH ×4 (01:31→19:28)
[2018-11-27] MEDS: SUCRALFATE 1 G/10 ML LIQUID UDC GT SCH ×3 (06:27→21:06)
[2018-11-27] MEDS: LEVOTHYROXINE SODIUM 75 MCG TABLET GT SCH (06:27)
[2018-11-27] MEDS: OMEPRAZOLE 20 MG CAPSULE.DR PO SCH ×2 (06:27→21:06)
[2018-11-27] MEDS: ACIDOPHILUS/BULGARICUS CHEW TAB GT SCH ×2 (08:22→20:37)
[2018-11-27] MEDS: HYDROCORTISONE 20MG TABLET GT SCH ×2 (08:36→20:39)
[2018-11-27] MEDS: BACLOFEN 20 MG TABLET GT SCH ×4 (08:36→20:38)
[2018-11-27] MEDS: TERAZOSIN 1 MG CAPSULE GT SCH (08:36)
[2018-11-27] MEDS: LEVETIRACETAM 500 MG/5 ML LIQUID UDC GT SCH ×2 (08:36→20:38)
[2018-11-27] MEDS: HYDROCORTISONE 10 MG GT SCH ×2 (08:36→20:39)
[2018-11-27] MEDS: POTASSIUM CHLORIDE 40 MEQ/30 ML LIQUID UDC GT SCH (08:37)
[2018-11-27] MEDS: Z GUARD REMEDY PASTE 57 GM TUBE TOP SCH ×2 (08:38→20:39)
[2018-11-27] MEDS: HYDROGEN PEROXIDE 3% 118 ML BOTTLE TP SCH ×2 (08:38→20:39)
[2018-11-27 20:01] VITALS: BP 112/76
[2018-11-27] MEDS: MULTIVIT, IRON, MIN NO. 8, FA TABLET GT SCH (20:39)
[2018-11-28] MEDS: VITAL AF 1.2 1,000 ML LIQUID GT PRN ×2 (01:01→20:48)
[2018-11-28] MEDS: IPRATROPIUM BROMIDE 0.5 MG/2.5 ML NEBU NEB SCH ×4 (01:18→19:56)
[2018-11-28] MEDS: ALBUTEROL SULFATE 2.5 MG/3 ML NEBU NEB SCH ×4 (01:18→19:56)
[2018-11-28] MEDS: SUCRALFATE 1 G/10 ML LIQUID UDC GT SCH ×3 (05:57→21:58)
[2018-11-28] MEDS: LEVOTHYROXINE SODIUM 75 MCG TABLET GT SCH (05:57)
[2018-11-28] MEDS: OMEPRAZOLE 20 MG CAPSULE.DR PO SCH ×2 (05:57→21:58)
[2018-11-28] MEDS: ACIDOPHILUS/BULGARICUS CHEW TAB GT SCH ×2 (08:25→20:43)
[2018-11-28] MEDS: HYDROGEN PEROXIDE 3% 118 ML BOTTLE TP SCH ×2 (08:25→20:44)
[2018-11-28] MEDS: HYDROCORTISONE 10 MG GT SCH ×2 (08:25→20:43)
[2018-11-28] MEDS: LEVETIRACETAM 500 MG/5 ML LIQUID UDC GT SCH ×2 (08:25→20:43)
[2018-11-28] MEDS: Z GUARD REMEDY PASTE 57 GM TUBE TOP SCH ×2 (08:25→20:43)
[2018-11-28] MEDS: BACLOFEN 20 MG TABLET GT SCH ×4 (08:25→20:43)
[2018-11-28] MEDS: HYDROCORTISONE 20MG TABLET GT SCH ×2 (08:25→20:43)
[2018-11-28] MEDS: TERAZOSIN 1 MG CAPSULE GT SCH (08:25)
[2018-11-28] MEDS: POTASSIUM CHLORIDE 40 MEQ/30 ML LIQUID UDC GT SCH (08:25)
[2018-11-28 09:12] VITALS: BP 99/56
[2018-11-28] MEDS: MULTIVIT, IRON, MIN NO. 8, FA TABLET GT SCH (20:43)
[2018-11-28 20:52] VITALS: BP 136/78
[2018-11-29] MEDS: ALBUTEROL SULFATE 2.5 MG/3 ML NEBU NEB SCH ×4 (01:14→19:12)
[2018-11-29] MEDS: IPRATROPIUM BROMIDE 0.5 MG/2.5 ML NEBU NEB SCH ×4 (01:14→19:12)
[2018-11-29] MEDS: LEVOTHYROXINE SODIUM 75 MCG TABLET GT SCH (05:57)
[2018-11-29] MEDS: SUCRALFATE 1 G/10 ML LIQUID UDC GT SCH ×3 (05:57→22:01)
[2018-11-29] MEDS: OMEPRAZOLE 20 MG CAPSULE.DR PO SCH ×2 (05:57→22:01)
[2018-11-29 08:08] VITALS: BP 139/76
[2018-11-29] MEDS: ACIDOPHILUS/BULGARICUS CHEW TAB GT SCH ×2 (09:16→20:46)
[2018-11-29] MEDS: POTASSIUM CHLORIDE 40 MEQ/30 ML LIQUID UDC GT SCH (09:16)
[2018-11-29] MEDS: BACLOFEN 20 MG TABLET GT SCH ×4 (09:16→20:46)
[2018-11-29] MEDS: HYDROCORTISONE 10 MG GT SCH ×2 (09:16→20:46)
[2018-11-29] MEDS: HYDROCORTISONE 20MG TABLET GT SCH ×2 (09:16→20:46)
[2018-11-29] MEDS: LEVETIRACETAM 500 MG/5 ML LIQUID UDC GT SCH ×2 (09:16→20:46)
[2018-11-29] MEDS: TERAZOSIN 1 MG CAPSULE GT SCH (09:16)
[2018-11-29] MEDS: Z GUARD REMEDY PASTE 57 GM TUBE TOP SCH ×2 (09:17→20:47)
[2018-11-29] MEDS: HYDROGEN PEROXIDE 3% 118 ML BOTTLE TP SCH ×2 (09:17→20:47)
[2018-11-29] MEDS: MULTIVIT, IRON, MIN NO. 8, FA TABLET GT SCH (20:46)
[2018-11-29 21:05] VITALS: BP 104/71
[2018-11-30] MEDS: ALBUTEROL SULFATE 2.5 MG/3 ML NEBU NEB SCH ×4 (01:02→19:19)
[2018-11-30] MEDS: IPRATROPIUM BROMIDE 0.5 MG/2.5 ML NEBU NEB SCH ×4 (01:02→19:19)
[2018-11-30] MEDS: VITAL AF 1.2 1,000 ML LIQUID GT PRN ×2 (02:17→17:35)
[2018-11-30] MEDS: OMEPRAZOLE 20 MG CAPSULE.DR PO SCH ×2 (06:20→21:03)
[2018-11-30] MEDS: SUCRALFATE 1 G/10 ML LIQUID UDC GT SCH ×3 (06:20→21:03)
[2018-11-30] MEDS: LEVOTHYROXINE SODIUM 75 MCG TABLET GT SCH (06:20)
[2018-11-30 08:04] VITALS: BP 153/87
[2018-11-30] MEDS: ACIDOPHILUS/BULGARICUS CHEW TAB GT SCH ×2 (08:44→20:58)
[2018-11-30] MEDS: HYDROCORTISONE 10 MG GT SCH ×2 (08:47→20:59)
[2018-11-30] MEDS: TERAZOSIN 1 MG CAPSULE GT SCH (08:47)
[2018-11-30] MEDS: POTASSIUM CHLORIDE 40 MEQ/30 ML LIQUID UDC GT SCH (08:47)
[2018-11-30] MEDS: BACLOFEN 20 MG TABLET GT SCH ×4 (08:47→20:58)
[2018-11-30] MEDS: LEVETIRACETAM 500 MG/5 ML LIQUID UDC GT SCH ×2 (08:47→20:58)
[2018-11-30] MEDS: HYDROCORTISONE 20MG TABLET GT SCH ×2 (08:47→20:59)
[2018-11-30] MEDS: HYDROGEN PEROXIDE 3% 118 ML BOTTLE TP SCH ×2 (08:49→20:59)
[2018-11-30] MEDS: Z GUARD REMEDY PASTE 57 GM TUBE TOP SCH ×2 (08:49→20:59)
[2018-11-30 20:54] VITALS: BP 110/70
[2018-11-30] MEDS: MULTIVIT, IRON, MIN NO. 8, FA TABLET GT SCH (20:59)
[2018-12-01] MEDS: IPRATROPIUM BROMIDE 0.5 MG/2.5 ML NEBU NEB SCH ×4 (00:55→19:45)
[2018-12-01] MEDS: ALBUTEROL SULFATE 2.5 MG/3 ML NEBU NEB SCH ×4 (00:55→19:46)
[2018-12-01] MEDS: OMEPRAZOLE 20 MG CAPSULE.DR PO SCH ×2 (05:37→21:59)
[2018-12-01] MEDS: LEVOTHYROXINE SODIUM 75 MCG TABLET GT SCH (05:37)
[2018-12-01] MEDS: SUCRALFATE 1 G/10 ML LIQUID UDC GT SCH ×3 (05:37→21:59)
[2018-12-01 08:05] VITALS: BP 148/83
[2018-12-01] MEDS: BACLOFEN 20 MG TABLET GT SCH ×4 (09:13→21:59)
[2018-12-01] MEDS: LEVETIRACETAM 500 MG/5 ML LIQUID UDC GT SCH ×2 (09:13→21:57)
[2018-12-01] MEDS: HYDROCORTISONE 10 MG GT SCH ×2 (09:14→21:59)
[2018-12-01] MEDS: POTASSIUM CHLORIDE 40 MEQ/30 ML LIQUID UDC GT SCH (09:14)
[2018-12-01] MEDS: HYDROCORTISONE 20MG TABLET GT SCH ×2 (09:14→21:59)
[2018-12-01] MEDS: Z GUARD REMEDY PASTE 57 GM TUBE TOP SCH ×2 (09:14→21:59)
[2018-12-01] MEDS: TERAZOSIN 1 MG CAPSULE GT SCH (09:15)
[2018-12-01] MEDS: ACIDOPHILUS/BULGARICUS CHEW TAB GT SCH ×2 (09:15→21:57)
[2018-12-01] MEDS: HYDROGEN PEROXIDE 3% 118 ML BOTTLE TP SCH ×2 (09:15→21:59)
[2018-12-01 20:04] VITALS: BP 105/69
[2018-12-01] MEDS: MULTIVIT, IRON, MIN NO. 8, FA TABLET GT SCH (21:59)
[2018-12-02] MEDS: IPRATROPIUM BROMIDE 0.5 MG/2.5 ML NEBU NEB SCH ×4 (01:43→19:57)
[2018-12-02] MEDS: ALBUTEROL SULFATE 2.5 MG/3 ML NEBU NEB SCH ×4 (01:43→19:57)
[2018-12-02] MEDS: OMEPRAZOLE 20 MG CAPSULE.DR PO SCH ×2 (06:12→21:41)
[2018-12-02] MEDS: SUCRALFATE 1 G/10 ML LIQUID UDC GT SCH ×3 (06:12→21:41)
[2018-12-02] MEDS: LEVOTHYROXINE SODIUM 75 MCG TABLET GT SCH (06:12)
[2018-12-02 08:03] VITALS: BP 143/94
[2018-12-02] MEDS: ACIDOPHILUS/BULGARICUS CHEW TAB GT SCH ×2 (08:18→21:41)
[2018-12-02] MEDS: LEVETIRACETAM 500 MG/5 ML LIQUID UDC GT SCH ×2 (08:18→21:41)
[2018-12-02] MEDS: TERAZOSIN 1 MG CAPSULE GT SCH (08:18)
[2018-12-02] MEDS: HYDROCORTISONE 10 MG GT SCH ×2 (08:21→21:41)
[2018-12-02] MEDS: HYDROCORTISONE 20MG TABLET GT SCH ×2 (08:21→21:41)
[2018-12-02] MEDS: POTASSIUM CHLORIDE 40 MEQ/30 ML LIQUID UDC GT SCH (08:21)
[2018-12-02] MEDS: BACLOFEN 20 MG TABLET GT SCH ×4 (08:21→21:41)
[2018-12-02] MEDS: Z GUARD REMEDY PASTE 57 GM TUBE TOP SCH ×2 (08:22→21:41)
[2018-12-02] MEDS: HYDROGEN PEROXIDE 3% 118 ML BOTTLE TP SCH ×2 (08:22→21:41)
--- NOTE | 2018-12-02 12:25 | NUR ---
SEEN BY RADHA DEUTSCH.
[2018-12-02 21:09] VITALS: BP 138/86
[2018-12-02] MEDS: MULTIVIT, IRON, MIN NO. 8, FA TABLET GT SCH (21:41)
[2018-12-03] MEDS: IPRATROPIUM BROMIDE 0.5 MG/2.5 ML NEBU NEB SCH ×4 (01:45→19:29)
[2018-12-03] MEDS: ALBUTEROL SULFATE 2.5 MG/3 ML NEBU NEB SCH ×4 (01:45→19:29)
[2018-12-03] MEDS: SUCRALFATE 1 G/10 ML LIQUID UDC GT SCH ×3 (02:48→21:38)
[2018-12-03] MEDS: VITAL AF 1.2 1,000 ML LIQUID GT PRN (04:29)
[2018-12-03] MEDS: LEVOTHYROXINE SODIUM 75 MCG TABLET GT SCH (05:39)
[2018-12-03] MEDS: OMEPRAZOLE 20 MG CAPSULE.DR PO SCH ×2 (05:39→21:38)
[2018-12-03 08:04] VITALS: BP 134/80
[2018-12-03] MEDS: HYDROCORTISONE 10 MG GT SCH ×2 (08:49→21:37)
[2018-12-03] MEDS: Z GUARD REMEDY PASTE 57 GM TUBE TOP SCH ×2 (08:49→21:38)
[2018-12-03] MEDS: POTASSIUM CHLORIDE 40 MEQ/30 ML LIQUID UDC GT SCH (08:49)
[2018-12-03] MEDS: LEVETIRACETAM 500 MG/5 ML LIQUID UDC GT SCH ×2 (08:49→21:37)
[2018-12-03] MEDS: HYDROCORTISONE 20MG TABLET GT SCH ×2 (08:49→21:37)
[2018-12-03] MEDS: TERAZOSIN 1 MG CAPSULE GT SCH (08:49)
[2018-12-03] MEDS: ACIDOPHILUS/BULGARICUS CHEW TAB GT SCH ×2 (08:49→21:37)
[2018-12-03] MEDS: BACLOFEN 20 MG TABLET GT SCH ×4 (08:49→21:37)
[2018-12-03] MEDS: HYDROGEN PEROXIDE 3% 118 ML BOTTLE TP SCH ×2 (08:50→21:38)
[2018-12-03 20:24] VITALS: BP 129/80
[2018-12-03] MEDS: MULTIVIT, IRON, MIN NO. 8, FA TABLET GT SCH (21:37)
[2018-12-04] MEDS: VITAL AF 1.2 1,000 ML LIQUID GT PRN ×2 (01:14→17:11)
[2018-12-04] MEDS: ALBUTEROL SULFATE 2.5 MG/3 ML NEBU NEB SCH ×4 (01:18→19:26)
[2018-12-04] MEDS: IPRATROPIUM BROMIDE 0.5 MG/2.5 ML NEBU NEB SCH ×4 (01:18→19:26)
[2018-12-04] MEDS: OMEPRAZOLE 20 MG CAPSULE.DR PO SCH ×2 (05:41→22:32)
[2018-12-04] MEDS: LEVOTHYROXINE SODIUM 75 MCG TABLET GT SCH (05:41)
[2018-12-04] MEDS: SUCRALFATE 1 G/10 ML LIQUID UDC GT SCH ×3 (05:41→22:32)
[2018-12-04 08:05] VITALS: BP 113/64
[2018-12-04] MEDS: TERAZOSIN 1 MG CAPSULE GT SCH (08:37)
[2018-12-04] MEDS: LEVETIRACETAM 500 MG/5 ML LIQUID UDC GT SCH ×2 (08:37→20:20)
[2018-12-04] MEDS: ACIDOPHILUS/BULGARICUS CHEW TAB GT SCH ×2 (08:37→20:20)
[2018-12-04] MEDS: HYDROCORTISONE 10 MG GT SCH ×2 (08:38→20:21)
[2018-12-04] MEDS: POTASSIUM CHLORIDE 40 MEQ/30 ML LIQUID UDC GT SCH (08:38)
[2018-12-04] MEDS: HYDROCORTISONE 20MG TABLET GT SCH ×2 (08:38→20:21)
[2018-12-04] MEDS: Z GUARD REMEDY PASTE 57 GM TUBE TOP SCH ×2 (08:38→20:22)
[2018-12-04] MEDS: BACLOFEN 20 MG TABLET GT SCH ×4 (08:38→20:21)
[2018-12-04] MEDS: HYDROGEN PEROXIDE 3% 118 ML BOTTLE TP SCH ×2 (08:38→20:22)
--- NOTE | 2018-12-04 12:00 | NUR ---
seen by mao caraballo.
--- NOTE | 2018-12-04 13:30 | NUR ---
BRIAN called patient's brother Jose [phone] to revisit his previous request of transferring patient to a facility closer to him that would be able to provide patient with the level of care he requires. Previous attempts were unsuccessful due to facilities in the [facility] not being able to provide the level of care for patient since he requires a trach (see previous SS notes in previous chart). Jose stated that he is still interested in the possibility of moving patient to a facility closer to him. BRIAN informed Jose that there is a new facility in [place] that accepts subacute patients. Jose stated that he would be interested in visiting the facility. BRIAN provided Jose with the information for the facility: [facility], [address] [place] [id number], , distribution systems serviceperson Beba (Admission's Coordinator). BRIAN informed Jose that the sooner he makes a decision, the greater the chances for bed availability at the facility. Jose expressed understanding and agreement, and stated he would let SW know what he decides. BRIAN agreed.
[2018-12-04] MEDS: MULTIVIT, IRON, MIN NO. 8, FA TABLET GT SCH (20:21)
[2018-12-04 20:30] VITALS: BP 117/68
[2018-12-05] MEDS: ALBUTEROL SULFATE 2.5 MG/3 ML NEBU NEB SCH ×4 (01:10→20:00)
[2018-12-05] MEDS: IPRATROPIUM BROMIDE 0.5 MG/2.5 ML NEBU NEB SCH ×4 (01:10→20:00)
[2018-12-05] MEDS: LEVOTHYROXINE SODIUM 75 MCG TABLET GT SCH (06:14)
[2018-12-05] MEDS: OMEPRAZOLE 20 MG CAPSULE.DR PO SCH ×2 (06:14→22:29)
[2018-12-05] MEDS: SUCRALFATE 1 G/10 ML LIQUID UDC GT SCH ×3 (06:14→22:29)
[2018-12-05 08:15] VITALS: BP 148/84
[2018-12-05] MEDS: LEVETIRACETAM 500 MG/5 ML LIQUID UDC GT SCH ×2 (08:30→21:00)
[2018-12-05] MEDS: HYDROGEN PEROXIDE 3% 118 ML BOTTLE TP SCH ×2 (08:30→21:00)
[2018-12-05] MEDS: Z GUARD REMEDY PASTE 57 GM TUBE TOP SCH ×2 (08:30→21:00)
[2018-12-05] MEDS: HYDROCORTISONE 20MG TABLET GT SCH ×2 (08:30→21:00)
[2018-12-05] MEDS: BACLOFEN 20 MG TABLET GT SCH ×4 (08:30→21:00)
[2018-12-05] MEDS: TERAZOSIN 1 MG CAPSULE GT SCH (08:30)
[2018-12-05] MEDS: HYDROCORTISONE 10 MG GT SCH ×2 (08:30→21:00)
[2018-12-05] MEDS: POTASSIUM CHLORIDE 40 MEQ/30 ML LIQUID UDC GT SCH (08:30)
[2018-12-05] MEDS: ACIDOPHILUS/BULGARICUS CHEW TAB GT SCH ×2 (08:30→21:00)
--- NOTE | 2018-12-05 13:42 | NUR ---
11:00am: BRIAN received a call from patient's brother Jose this morning, . Jose stated that he visited [facility] in [place] yesterday evening, and he asked this SW to go ahead and submit patient's records to them for their review for potential admission at [facility]. BRIAN agreed. 1:40pm: BRIAN called Beba, project coordinator at [facility] [phone], and discussed patient's case. Beba stated she was aware of the referral after speaking with patient's brother yesterday. Beba asked this SW to fax patient's face sheet, most recent H & P, and a few of patient's most recent physician's progress notes, so it can be reviewed. Beba stated that after the paperwork is reviewed, that they will probably have one of their coordinators come out to [facility] to do an on-location assessment of the patient. BRIAN agreed.
--- NOTE | 2018-12-05 14:00 | NUR ---
New orders noted for discharge planning,carried out.
--- NOTE | 2018-12-05 14:17 | NUR ---
BRIAN faxed patient's most recent H & P, face sheet, and physician's/PA's progress notes dated 11/25/2018, 11/28/2018, 12/02/2018, and 12/04/2018, to Beba at [facility], fax # [phone]; tel # [phone].
[2018-12-05] MEDS: VITAL AF 1.2 1,000 ML LIQUID GT PRN (16:11)
[2018-12-05 20:00] VITALS: BP 101/64
[2018-12-05] MEDS: MULTIVIT, IRON, MIN NO. 8, FA TABLET GT SCH (21:00)
[2018-12-06] MEDS: ALBUTEROL SULFATE 2.5 MG/3 ML NEBU NEB SCH ×4 (01:06→19:22)
[2018-12-06] MEDS: IPRATROPIUM BROMIDE 0.5 MG/2.5 ML NEBU NEB SCH ×4 (01:06→19:22)
[2018-12-06] MEDS: LEVOTHYROXINE SODIUM 75 MCG TABLET GT SCH (05:38)
[2018-12-06] MEDS: SUCRALFATE 1 G/10 ML LIQUID UDC GT SCH ×3 (05:38→21:25)
[2018-12-06] MEDS: OMEPRAZOLE 20 MG CAPSULE.DR PO SCH ×2 (05:38→21:25)
[2018-12-06 08:00] VITALS: BP 124/77
[2018-12-06] MEDS: ACIDOPHILUS/BULGARICUS CHEW TAB GT SCH ×2 (08:45→21:23)
[2018-12-06] MEDS: LEVETIRACETAM 500 MG/5 ML LIQUID UDC GT SCH ×2 (08:45→21:23)
[2018-12-06] MEDS: TERAZOSIN 1 MG CAPSULE GT SCH (08:45)
[2018-12-06] MEDS: BACLOFEN 20 MG TABLET GT SCH ×4 (08:46→21:24)
[2018-12-06] MEDS: Z GUARD REMEDY PASTE 57 GM TUBE TOP SCH ×2 (08:46→21:25)
[2018-12-06] MEDS: POTASSIUM CHLORIDE 40 MEQ/30 ML LIQUID UDC GT SCH (08:46)
[2018-12-06] MEDS: HYDROCORTISONE 20MG TABLET GT SCH ×2 (08:46→21:24)
[2018-12-06] MEDS: HYDROGEN PEROXIDE 3% 118 ML BOTTLE TP SCH ×2 (08:46→21:25)
[2018-12-06] MEDS: HYDROCORTISONE 10 MG GT SCH ×2 (08:46→21:24)
--- NOTE | 2018-12-06 14:02 | NUR ---
10:30am: Alan from [facility] came in today to do a in-person assessment for potential transfer of patient to their facility, since patient's brother is requesting for patient to be in a facility closer to him.
--- NOTE | 2018-12-06 14:03 | NUR ---
2:00pm: BRIAN received a call from Beba at [facility] [phone], who stated that they will accept the patient for transfer. BRIAN stated that she will call patient's brother Jose to let him know, and then will notify patient's physician. BRIAN will also work on transportation arrangements once Jose agrees to the transport. grain oilseed or pasture farm manager Elizabeth and Subacute Director Marvin Corona informed of above.
--- NOTE | 2018-12-06 15:41 | NUR ---
3:00pm: SW attempted to call patient's brother Jose, , but was unable to get a hold of him. Jose's voicemail is not set up and therefore BRIAN could not leave him a voicemail message. BRIAN will try again.
--- NOTE | 2018-12-06 16:34 | NUR ---
SW attempted to call patient's brother Jose again, , and was able to speak with him. BRIAN informed Jose that patient has been accepted for transfer to [facility] in [place], and Jose expressed gratitude and appreciation. BRIAN explained to Jose that the next step will be to notify patient's physician and to make transportation arrangements. Jose expressed understanding. BRIAN asked Jose if he was fine with transferring patient early next week, and Jose agreed. SW to work on arrangements and coordinate with patient's physician.
[2018-12-06 20:07] VITALS: BP 144/90
[2018-12-06] MEDS: MULTIVIT, IRON, MIN NO. 8, FA TABLET GT SCH (21:24)
[2018-12-07] MEDS: IPRATROPIUM BROMIDE 0.5 MG/2.5 ML NEBU NEB SCH ×4 (01:30→19:57)
[2018-12-07] MEDS: ALBUTEROL SULFATE 2.5 MG/3 ML NEBU NEB SCH ×4 (01:30→19:57)
[2018-12-07] MEDS: OMEPRAZOLE 20 MG CAPSULE.DR PO SCH ×2 (06:27→21:55)
[2018-12-07] MEDS: SUCRALFATE 1 G/10 ML LIQUID UDC GT SCH ×3 (06:27→21:55)
[2018-12-07] MEDS: LEVOTHYROXINE SODIUM 75 MCG TABLET GT SCH (06:27)
[2018-12-07] MEDS: BACLOFEN 20 MG TABLET GT SCH ×4 (09:32→21:55)
[2018-12-07] MEDS: ACIDOPHILUS/BULGARICUS CHEW TAB GT SCH ×2 (09:32→21:55)
[2018-12-07] MEDS: HYDROCORTISONE 10 MG GT SCH ×2 (09:32→21:55)
[2018-12-07] MEDS: POTASSIUM CHLORIDE 40 MEQ/30 ML LIQUID UDC GT SCH (09:32)
[2018-12-07] MEDS: LEVETIRACETAM 500 MG/5 ML LIQUID UDC GT SCH ×2 (09:32→21:55)
[2018-12-07] MEDS: HYDROCORTISONE 20MG TABLET GT SCH ×2 (09:32→21:55)
[2018-12-07] MEDS: HYDROGEN PEROXIDE 3% 118 ML BOTTLE TP SCH ×2 (09:32→21:55)
[2018-12-07] MEDS: Z GUARD REMEDY PASTE 57 GM TUBE TOP SCH ×2 (09:32→21:55)
[2018-12-07] MEDS: TERAZOSIN 1 MG CAPSULE GT SCH (09:33)
--- NOTE | 2018-12-07 10:57 | NUR ---
BRIAN called [employer] [phone] and spoke with Berta about patient's insurance benefits for a lateral transfer. Berta stated that Medicare would only cover 25 miles. BRIAN then called [employer] [phone] and spoke with Sam, who informed SW to call [employer] [phone], which is a [facility] that provides [facility] beneficiaries with transportation benefits. BRIAN called [facility] and spoke with Nohelia who looked at patient's benefits and stated that patient's transport would be covered on an SCT (special care transportation) level, since he requires a respiratory therapist. BRIAN once again clarified with Nohelia that this would be a lateral level transfer, and Nohelia stated again that it would be covered. Nohelia stated to call the morning of the transfer and that they have a 4 hour window to arrange for an ambulance to pick patient up. BRIAN asked if [employer] could be recommended as the ambulance company, and Nohelia stated that although they work with many different ambulance companies, that she would put a note for the recommendation. BRIAN informed Subacute Director Marvin of above. SW to coordinate with patient's brother, admission coordinator Beba at [facility], and patient's physicians regarding the transfer.
[2018-12-07 14:43] VITALS: BP 156/98
--- NOTE | 2018-12-07 16:37 | NUR ---
BRIAN spoke with patient's brother Jose [phone] and informed him that arrangements were being made for patient to be transferred to [facility] early next week, and Jose expressed being in agreement and grateful.
[2018-12-07 21:00] VITALS: BP 119/66
[2018-12-07] MEDS: MULTIVIT, IRON, MIN NO. 8, FA TABLET GT SCH (21:55)
[2018-12-08] MEDS: IPRATROPIUM BROMIDE 0.5 MG/2.5 ML NEBU NEB SCH ×4 (00:54→19:07)
[2018-12-08] MEDS: ALBUTEROL SULFATE 2.5 MG/3 ML NEBU NEB SCH ×4 (00:54→19:07)
[2018-12-08] MEDS: SUCRALFATE 1 G/10 ML LIQUID UDC GT SCH ×3 (05:33→21:42)
[2018-12-08] MEDS: LEVOTHYROXINE SODIUM 75 MCG TABLET GT SCH (05:33)
[2018-12-08] MEDS: OMEPRAZOLE 20 MG CAPSULE.DR PO SCH ×2 (05:33→21:42)
[2018-12-08] MEDS: VITAL AF 1.2 1,000 ML LIQUID GT PRN (07:11)
[2018-12-08] MEDS: ACIDOPHILUS/BULGARICUS CHEW TAB GT SCH ×2 (08:20→21:42)
[2018-12-08] MEDS: HYDROCORTISONE 10 MG GT SCH ×2 (08:23→21:42)
[2018-12-08] MEDS: BACLOFEN 20 MG TABLET GT SCH ×4 (08:23→21:42)
[2018-12-08] MEDS: TERAZOSIN 1 MG CAPSULE GT SCH (08:23)
[2018-12-08] MEDS: POTASSIUM CHLORIDE 40 MEQ/30 ML LIQUID UDC GT SCH (08:23)
[2018-12-08] MEDS: HYDROCORTISONE 20MG TABLET GT SCH ×2 (08:23→21:42)
[2018-12-08] MEDS: Z GUARD REMEDY PASTE 57 GM TUBE TOP SCH ×2 (08:23→21:42)
[2018-12-08] MEDS: LEVETIRACETAM 500 MG/5 ML LIQUID UDC GT SCH ×2 (08:23→21:42)
[2018-12-08] MEDS: HYDROGEN PEROXIDE 3% 118 ML BOTTLE TP SCH ×2 (08:23→21:42)
[2018-12-08 12:56] VITALS: BP 141/91
--- NOTE | 2018-12-08 15:39 | NUR ---
New discharge orders from Dr Platt carried out,to [facility] in [place].
[2018-12-08 20:59] VITALS: BP 131/82
[2018-12-08] MEDS: MULTIVIT, IRON, MIN NO. 8, FA TABLET GT SCH (21:42)
[2018-12-09] MEDS: ALBUTEROL SULFATE 2.5 MG/3 ML NEBU NEB SCH ×4 (00:51→19:24)
[2018-12-09] MEDS: IPRATROPIUM BROMIDE 0.5 MG/2.5 ML NEBU NEB SCH ×4 (00:51→19:24)
[2018-12-09] MEDS: VITAL AF 1.2 1,000 ML LIQUID GT PRN (01:45)
[2018-12-09] MEDS: OMEPRAZOLE 20 MG CAPSULE.DR PO SCH ×2 (05:14→21:53)
[2018-12-09] MEDS: SUCRALFATE 1 G/10 ML LIQUID UDC GT SCH ×3 (05:14→21:53)
[2018-12-09] MEDS: LEVOTHYROXINE SODIUM 75 MCG TABLET GT SCH (05:32)
[2018-12-09] MEDS: ACIDOPHILUS/BULGARICUS CHEW TAB GT SCH ×2 (08:54→21:52)
[2018-12-09] MEDS: BACLOFEN 20 MG TABLET GT SCH ×4 (08:56→21:52)
[2018-12-09] MEDS: HYDROCORTISONE 20MG TABLET GT SCH ×2 (08:56→21:53)
[2018-12-09] MEDS: HYDROCORTISONE 10 MG GT SCH ×2 (08:56→21:52)
[2018-12-09] MEDS: TERAZOSIN 1 MG CAPSULE GT SCH (08:56)
[2018-12-09] MEDS: POTASSIUM CHLORIDE 40 MEQ/30 ML LIQUID UDC GT SCH (08:56)
[2018-12-09] MEDS: LEVETIRACETAM 500 MG/5 ML LIQUID UDC GT SCH ×2 (08:56→21:52)
[2018-12-09] MEDS: HYDROGEN PEROXIDE 3% 118 ML BOTTLE TP SCH ×2 (08:57→21:53)
[2018-12-09] MEDS: Z GUARD REMEDY PASTE 57 GM TUBE TOP SCH ×2 (08:57→21:53)
[2018-12-09 10:58] VITALS: BP 167/96
[2018-12-09 20:07] VITALS: BP 119/82
[2018-12-09] MEDS: MULTIVIT, IRON, MIN NO. 8, FA TABLET GT SCH (21:53)
[2018-12-09 22:00] VITALS: BP 119/82
[2018-12-10] MEDS: ALBUTEROL SULFATE 2.5 MG/3 ML NEBU NEB SCH ×2 (01:11→07:18)
[2018-12-10] MEDS: IPRATROPIUM BROMIDE 0.5 MG/2.5 ML NEBU NEB SCH ×2 (01:11→07:18)
[2018-12-10] MEDS: SUCRALFATE 1 G/10 ML LIQUID UDC GT SCH (05:03)
[2018-12-10] MEDS: OMEPRAZOLE 20 MG CAPSULE.DR PO SCH (05:03)
[2018-12-10] MEDS: LEVOTHYROXINE SODIUM 75 MCG TABLET GT SCH (05:35)
[2018-12-10] MEDS: VITAL AF 1.2 1,000 ML LIQUID GT PRN (06:20)
[2018-12-10 08:00] VITALS: BP 99/66
[2018-12-10] MEDS: ACIDOPHILUS/BULGARICUS CHEW TAB GT SCH (08:41)
[2018-12-10] MEDS: TERAZOSIN 1 MG CAPSULE GT SCH (08:42)
[2018-12-10] MEDS: LEVETIRACETAM 500 MG/5 ML LIQUID UDC GT SCH (08:42)
[2018-12-10] MEDS: BACLOFEN 20 MG TABLET GT SCH ×2 (08:43→12:45)
[2018-12-10] MEDS: HYDROCORTISONE 10 MG GT SCH (08:43)
[2018-12-10] MEDS: HYDROGEN PEROXIDE 3% 118 ML BOTTLE TP SCH (08:43)
[2018-12-10] MEDS: HYDROCORTISONE 20MG TABLET GT SCH (08:43)
[2018-12-10] MEDS: Z GUARD REMEDY PASTE 57 GM TUBE TOP SCH (08:43)
[2018-12-10] MEDS: POTASSIUM CHLORIDE 40 MEQ/30 ML LIQUID UDC GT SCH (08:43)
--- NOTE | 2018-12-10 11:06 | NUR ---
9:20am: DC orders in chart to transfer patient to [facility]. BRIAN called [facility] to arrange ambulance transportation for patient, . BRIAN spoke with Inga, and schedule ambulance pick-up with an RT for 11am, from [facility] to [facility], [id number] [place] [id number], . Confirmation # [id number]. HERIBERTO Sam informed. Subacute Director Marvin Corona informed.
--- NOTE | 2018-12-10 11:18 | NUR ---
10:15am: BRIAN informed patient's brother Jose that patient was being transferred today. Jose was in agreement. BRIAN called [facility] and spoke with Beba, , letting her know that the patient was being transferred today. Beba was in agreement, and stated that she would call this SW back in a little bit to give SW the room # that patient will be assigned to, so that the charge nurse can then give a report to their charge nurse. BRIAN agreed. BRIAN also faxed the last 4 physician's progress notes and list of current medication to Beba at [phone].
--- NOTE | 2018-12-10 11:23 | NUR ---
SW received a call from Beba at [facility], , who stated that patient will be going to be assigned to Room 312, bed 1 at their facility.
--- NOTE | 2018-12-10 12:03 | NUR ---
Ambulance has not arrived yet (previous pick-up time was 11am, see previous SS notes). BRIAN called [facility] to follow-up on the ETA for the ambulance transport, . BRIAN spoke with Inga again, who checked on the ETA and stated that ambulance should arrive at the hospital around 1:15pm. Inga stated that the ambulance company will be [facility]. HERIBERTO Sam informed.
--- NOTE | 2018-12-10 12:17 | NUR ---
BRIAN called Beba at [facility] [phone] and informed her that the ambulance pick-up time has changed to 1:15pm. Beba expressed being fine with this. Beba asked for the charge nurse to call their subacute nurse and provide a report. BRIAN informed HERIBERTO Sam to follow-up with this request.
[2018-12-10 13:00] VITALS: BP 110/68
--- NOTE | 2018-12-10 13:30 | NUR ---
Patient transferred to [facility] by [facility], bp 110/68, p 88 r 18, o2sat 96%, t 97.5, brother Jose notified of transfer and in agreement (witness by 2nd Rn Marvin Fraser), report at [facility] given to Chiqui Booker, Dr. Krueger and Dr. barboza notified, patient has no belongings at the time of discharge, (brother aware).
--- NOTE | 2018-12-10 14:54 | NUR ---
1:05pm: Ambulance arrived to transport patient. Patient transferred to [facility]. Patient brother Jose called [phone] and informed that patient was leaving. Jose was on speaker phone and this SW, and HERIBERTO Sam and Subacute Director Marvin all witnessed Jose expressing agreement and gratitude. Patient only had a few pictures on his bulletin board and a stuffed animal penguin. These were transported with patient. SW informed Jose about these items, and Jose stated that those were patient's only belongings. HERIBERTO Sam and Subacute Director Marvin also witnessed this conversation regarding patient's belongings.
--- NOTE | 2019-01-22 15:01 | NUR ---
BRIAN received a voicemail message from Mrs. Butt at the [place] [employer] office. Mrs. Butt was asking for information on patient's current location. BRIAN called Mrs. Butt back [phone] and informed her that patient was transferred to another subacute facility in November 2018. BRIAN provided Mrs. Butt with information on patient's location: [facility], [address] [place] [id number], . Mrs. Butt thanked BRIAN for this information.
== END 2018-12-10 13:30 | DRG 189 ==
LOC: SA
PROVIDERS: ADMIT Internal Medicine; ATTEND Internal Medicine
DX: J96.21 Acute and chronic respiratory failure with hypoxia (principal); E43 Unspecified severe protein-calorie malnutrition; G93.1 Anoxic brain damage, not elsewhere classified; D68.59 Other primary thrombophilia; Z99.81 Dependence on supplemental oxygen; Q85.01 Neurofibromatosis, type 1; F79 Unspecified intellectual disabilities; E03.9 Hypothyroidism, unspecified; Z93.0 Tracheostomy status; Z86.14 Personal history of Methicillin resistant Staphylococcus aureus infection; G40.909 Epilepsy, unspecified, not intractable, without status epilepticus; L03.032 Cellulitis of left toe; N40.0 Benign prostatic hyperplasia without lower urinary tract symptoms; D53.9 Nutritional anemia, unspecified; F41.9 Anxiety disorder, unspecified; G47.00 Insomnia, unspecified; Z87.19 Personal history of other diseases of the digestive system; E11.22 Type 2 diabetes mellitus with diabetic chronic kidney disease; N18.9 Chronic kidney disease, unspecified; K44.9 Diaphragmatic hernia without obstruction or gangrene; K40.20 Bilateral inguinal hernia, without obstruction or gangrene, not specified as recurrent; K05.10 Chronic gingivitis, plaque induced; R91.8 Other nonspecific abnormal finding of lung field; R62.7 Adult failure to thrive; Z68.24 Body mass index [BMI] 24.0-24.9, adult; M62.59 Muscle wasting and atrophy, not elsewhere classified, multiple sites; Z87.01 Personal history of pneumonia (recurrent); F09 Unspecified mental disorder due to known physiological condition; R13.10 Dysphagia, unspecified; Z86.73 Personal history of transient ischemic attack (TIA), and cerebral infarction without residual deficits; Z93.1 Gastrostomy status; D50.0 Iron deficiency anemia secondary to blood loss (chronic)
CPT/HCPCS: 36415; 71045; 85025; 94640; A4663; C1758; J3590